=== PATIENT | female | born 1945 | race Caucasian/White ===

== ENCOUNTER → 2016-06-02 | Outpatient (CLI) | payer OTHER ==
[~2016-06-02] MED LIST: ACET-1311 PO; AMLO-110 PO; ASCA500 PO; CALC500C70 PO; DEXT4CHW60 PO; FERR1TAB13 PO; FERR325T51 PO; HYDR25TA4 PO; INSDGI SC; INSDGIPEN SC; INSUINJ4 SQ; IPRASOL4 INH; KETO0.0216 OPB; LEVO100T7 PO; LISI40TA PO; MAGN400T6 PO; METF1TAB53 PO; MISCCAP80 PO; MONT1TAB3 PO; MULT-614 PO; OMEG10007 PO; POLY99.02 OPB; PRIM50TA29 PO; PRLSR20 PO; PROAIR INH; SERT1TAB71 PO; SIMV20TA2 PO; SITA100T3 PO; SYMIN160 INH; TERB250T47 PO; VNTHFA/IN INH; ZLF50 PO
--- NOTE | 2016-06-02 16:40 | MAMMOGRAPHY REPORT ---
BILATERAL DIGITAL SCREENING MAMMOGRAM WITH CAD: 06/02/2016 CLINICAL HISTORY: Routine screening. Patient has no complaints. TECHNIQUE: Bilateral CC and MLO views were obtained. A repeat left CC view was performed for a skin fold. Current study was also evaluated with a Computer Aided Detection (CAD) system. COMPARISON: Comparison is made to exams dated: 05/29/2015 mammogram, 05/28/2014 mammogram, 03/16/2012 mammogram, 03/09/2011 mammogram - [facility], and 12/10/2008. BREAST COMPOSITION: There are scattered areas of fibroglandular density in both breasts. FINDINGS: There are minimal vascular calcifications and scattered stable benign-appearing microcalci fications in the breasts. No new suspicious mass, architectural distortion or cluster of microcalci fications is seen. IMPRESSION: ACR BI-RADS CATEGORY 1: NEGATIVE There is no mammographic evidence of malignancy. A 1 year screening mammogram is recommended. The p atient will receive written notification of the results. Approximately 10% of breast cancers are not detected with mammography. A negative mammographic repor t should not delay biopsy if a clinically suggestive mass is present. Rosy Sotomayor M.D. ay/:06/02/2016 16:33:20 Pharmacognosist: Marion MARTIN(Tani)(Nubia), [facility] letter sent: Normal 1/2 BI-RADS Code: ACR BI-RADS Category 1: Negative
== END | disposition home or self-care (01) ==
LOC: C.MAMM 10:07
PROVIDERS: ATTEND Internal Medicine
DX: Z12.31 Encounter for screening mammogram for malignant neoplasm of breast (principal)

== ENCOUNTER 2016-10-30 19:00 | Inpatient (IN) | payer OTHER ==
[~2016-10-30] VITALS: Ht 147.3 cm; Wt 76.6 kg
[~2016-10-30 19:00] MED LIST changes: -FERR1TAB13 PO; -INSDGIPEN SC; -MISCCAP80 PO; -TERB250T47 PO; -VNTHFA/IN INH; -ZLF50 PO
[2016-10-30] MEDS ORDERED: SODIUM CHLORIDE 0.9% 500ML 500 ML IV STA (19:26)
[2016-10-30] MEDS ORDERED: MISCCAP80 PO (19:42)
[2016-10-30] MEDS ORDERED: TERB250T47 PO (19:42)
[2016-10-30] MEDS ORDERED: FERR1TAB13 PO (19:42)
[2016-10-30] MEDS ORDERED: VNTHFA/IN INH (19:42)
[2016-10-30] MEDS ORDERED: INSDGIPEN SC ×2 (19:42)
[2016-10-30] MEDS ORDERED: KETO0.0216 OPB (19:42)
--- NOTE | 2016-10-30 20:16 | DIAGNOSTIC IMAGING REPORT ---
CHEST ONE VIEW PORTABLE HISTORY: Altered mental status. COMPARISON: Chest 11/05/2015. FINDINGS: No pneumothorax. No pleural effusions. The cardiac silhouette is mildly enlarged. There is mild central pulmonary vascular congestion without overt edema. No focal lung consolidations to suggest pneumonia. IMPRESSION: Progression of the mild cardiomegaly and mild central pulmonary vascular congestion. Electronically signed by: Saul Rojas M.D. 10/30/2016 8:14 PM Dictated Date/Time: 10/30/2016 8:13 PM
[2016-10-30 20:43] LABS: BASO % 0.3 %; BASO ABS # 0.03 K/uL (0-0.2); COMPLETE YES; EOS % 1.1 %; HEMATOCRIT 32.2 % (37-47); IG% 0.4 %; LYMPH % 21.6 %; LYMPH ABS # 2.39 K/uL (1.2-3.4); MEAN CELL VOLUME 94.4 fL (80-100); MEAN CORPUSCULAR HEMOGLOBIN 29.9 pg (25-34); MEAN CORPUSCULAR HGB CONC 31.7 g/dl (32-36); MEAN PLATELET VOLUME 8.8 fL (7.4-10.4); MONO % 7.7 %; NEUT % 68.9 %; PLATELET COUNT 349 K/uL (130-400); RED BLOOD COUNT 3.41 M/uL (4.2-5.4); WHITE BLOOD COUNT 11.04 K/uL (4.8-10.8)
[2016-10-30 21:24] LABS: ALKALINE PHOSPHATASE 101 U/L (45-117); ALT/SGPT 17 U/L (12-78); AST/SGOT 21 U/L (15-37); BLOOD UREA NITROGEN 15 mg/dl (7-18); BUN/CREATININE RATIO 15.8 (10-20); CALCIUM 9.7 mg/dl (8.5-10.1); CARBON DIOXIDE 29 mmol/L (21-32); CHLORIDE 97 mmol/L (98-107); CREATININE 0.96 mg/dl (0.60-1.20); GLUCOSE 73 mg/dl (70-99); POTASSIUM 4.7 mmol/L (3.5-5.1); SODIUM 133 mmol/L (136-145)
[2016-10-30 22:39] LABS: URINE APPEARANCE CLEAR (CLEAR); URINE BILIRUBIN NEG (NEG); URINE COLOR YELLOW; URINE EPITHELIAL CELL AUTO >30 /lpf (0-5); URINE NITRITE NEG (NEG); URINE PH 6.5 (4.5-7.5); URINE SPECIFIC GRAVITY 1.015 (1.000-1.030); UROBILINOGEN NEG (NEG); ZZURINE CULT IF INDIC CATH YES
[2016-10-30 22:40] LABS: MANUAL MICROSCOPIC REQUIRED? NO; REVIEW REQ? YES
[2016-10-31] MEDS ORDERED: MAGNESIUM HYDROXIDE SUSP 30 ML UDC PO PRN (01:00)
[2016-10-31] MEDS ORDERED: ALUMINUM/MAGNESIUM/SIMETH (MAALOX MAX) 30 ML UDC PO PRN (01:00)
[2016-10-31] MEDS ORDERED: POLYETHYLENE (MIRALAX) 17 GM PACK PO PRN (01:00)
[2016-10-31] MEDS ORDERED: ONDANSETRON INJ 2 MG/ML 2 ML VIAL IV PRN (01:00)
[2016-10-31] MEDS ORDERED: DEXTROSE 50% 50 ML SYR IV PRN (01:15)
[2016-10-31] MEDS ORDERED: GLUCOSE 10 TABS/TUBE PO PRN (01:15)
[2016-10-31] MEDS ORDERED: ALBUT/IPRATROP 3MG/0.5MG NEB 3 ML VIAL INH PRN (01:15)
[2016-10-31] MEDS ORDERED: ALBUTEROL HFA 8 GM INHALER INH PRN (01:15)
[2016-10-31] MEDS ORDERED: GLUCAGON FOR INJ 1 MG VIAL SQ PRN (01:15)
[2016-10-31] MEDS ORDERED: GLUCOSE 40% GEL 15 GM TUBE PO PRN (01:15)
--- NOTE | 2016-10-31 01:39 | History and Physical ---
History & Physical Date & Time of Service: Oct 31, 2016 at 01:06 Chief Complaint: Possuti,Newconfusion,Incontinent,Mental,Deathinfam Primary Care Physician: Franki Fernandez M.D. History of Present Illness Source: family, hospital records 71 y/o F Hx HTN, DM, HPL, asthma, anemia. Pt resides in a usp owing to mild MR. Apparently, this past Wed, she learned that a grandson of hers had and became exceedingly upset that she had not attended the . Per her daughter, she had not been in contact with the grandson for several years. Since that time she has become progressively more lethargic, seemingly confused and poorly responsive. She had wandered out of her usp at night as well and her daughter stated that she was found crossing a nearby bridge on foot. The pt herself answers "yes", "no", "I don't know" to all questioning and does not obey most commands. She was reportedly in her normal state of health prior to Wed. She is normally conversive and cooperative. [facility]. Past Medical/Surgical History 1) Asthma 2) Mild mental retardation 3) DM 2 4) HTN 5) HPL 6) Chronic iron-deficient anemia - baseline Hb 10.0 Family History FH: asthma CA, Heart disease Social History Smoking Status: Never Smoker Drug Use: none Marital Status: single Occupational Status: retired Immunizations History of Influenza Vaccine: Yes Influenza Vaccine Date: Dec 20, 2008 History of Tetanus Vaccine?: Yes Tetanus Immunization Date: Mar 13, 1989 History of Pneumococcal: Yes Pneumococcal Date: Dec 20, 2008 History of Hepatitis B Vaccine: Unknown Multi-Drug Resistant Organisms History of MDRO: No Allergies Coded Allergies: No Known Allergies (Verified , 12/10/15) Home Medications Scheduled Amlodipine (Norvasc), 5 MG PO QAM Ascorbic Acid (Vitamin C), 1 TAB PO TID Budesonide/Formoterol Fumarate (Symbicort 160/4.5 Inhaler ), 2 PUFFS INH BID Calcium/Vitamin D (Os-Shahid 500 Plus D), 1 TAB PO BID Ferrous Sulfate (Kp Ferrous Sulfate), 325 MG PO TID Fish Oil (Challenge-3), 1,000 MG PO QAM Hydrochlorothiazide (Hctz), 25 MG PO QAM Insulin Glargine (Lantus Solostar), 35 UNITS SC QAM Insulin Glargine (Lantus Solostar), 18 UNITS SC QPM Ketotifen Fumarate (Ophth) (Zaditor 0.025% Oph), 1 DROP OPB BID Levothyroxine Sodium (Levothyroxine Sodium), 100 MCG PO QAM Lisinopril (Zestril), 40 MG PO QAM Magnesium Oxide (Mag-Ox), 400 MG PO QID Metformin Hcl (Glucophage Ext Rel), 1,000 MG PO BID Montelukast Sodium (Singulair), 10 MG PO QPM Multiple Vitamins W/ Minerals (Centrum Silver Ultra [place]), 1 TAB PO QAM Omeprazole (Prilosec), 20 MG PO QAM Primidone (Mysoline), 50 MG PO TID Probiotic Product (Probiotic), 1 CAP PO QAM Sertraline Hcl (Zoloft), 100 MG PO QAM Simvastatin (Zocor), 20 MG PO QPM Sitagliptin Phosphate (Januvia), 100 MG PO QAM Terbinafine Hcl (Terbinafine Hcl), 250 MG PO DAILY Scheduled PRN Acetaminophen (Tylenol), 1-2 TABS PO Q6H PRN for Pain Albuterol Hfa (Ventolin Hfa), 2 PUFFS INH Q4H PRN for Shortness of Breath Ipratropium-Albuterol (Duoneb), 1 TREATMENT INH Q4H PRN for Shortness of Breath Review of Systems Cannot obtain Physical Exam Vital Signs Date Time Temp Pulse Resp B/P (MAP) Pulse Ox O2 Delivery O2 Flow Rate FiO2 10/31/16 01:00 83 98 10/31/16 00:57 153/72 100 10/31/16 00:45 81 98 10/31/16 00:31 153/72 10/31/16 00:30 80 100 10/31/16 00:15 84 97 10/31/16 00:01 141/62 10/31/16 00:00 80 97 10/30/16 23:45 79 98 10/30/16 23:31 126/52 10/30/16 23:30 74 95 10/30/16 23:24 156/64 10/30/16 22:50 76 16 157/76 98 Room Air 10/30/16 21:03 79 16 158/73 99 Room Air 10/30/16 19:06 37.0 76 18 160/83 98 Room Air General Appearance: + pertinent finding (Poorly responsive elderly female - provides short answers - mostly "no", "I don't know" - no distress) Head: normocephalic, atraumatic Neck: supple, no JVD Respiratory/Chest: chest non-tender, lungs clear, + pertinent finding (Poor effort) Cardiovascular: regular rate, rhythm, no edema, no gallop Abdomen/GI: normal bowel sounds, non tender, soft Back: normal inspection, no CVA tenderness Extremities/Musculoskelatal: normal inspection, no calf tenderness, normal range of motion Neurologic/Psych: + pertinent finding (No overt deficits - does not comply with exam) Skin: normal color, warm/dry Diagnostics Laboratory Results Results Past 24 Hours Test 10/30/16 20:33 10/30/16 22:14 Range/Units White Blood Count 11.04 4.8-10.8 K/uL Red Blood Count 3.41 4.2-5.4 M/uL Hemoglobin 10.2 12.0-16.0 g/dL Hematocrit 32.2 37-47 % Mean Corpuscular Volume 94.4 80-100 fL Mean Corpuscular Hemoglobin 29.9 25-34 pg Mean Corpuscular Hemoglobin Concent 31.7 32-36 g/dl Platelet Count 349 130-400 K/uL Mean Platelet Volume 8.8 7.4-10.4 fL Neutrophils (%) (Auto) 68.9 % Lymphocytes (%) (Auto) 21.6 % Monocytes (%) (Auto) 7.7 % Eosinophils (%) (Auto) 1.1 % Basophils (%) (Auto) 0.3 % Neutrophils # (Auto) 7.61 1.4-6.5 K/uL Lymphocytes # (Auto) 2.39 1.2-3.4 K/uL Monocytes # (Auto) 0.85 0.11-0.59 K/uL Eosinophils # (Auto) 0.12 0-0.5 K/uL Basophils # (Auto) 0.03 0-0.2 K/uL RDW Standard Deviation 44.8 36.4-46.3 fL RDW Coefficient of Variation 13.0 11.5-14.5 % Immature Granulocyte % (Auto) 0.4 % Immature Granulocyte # (Auto) 0.04 0.00-0.02 K/uL Sodium Level 133 136-145 mmol/L Potassium Level 4.7 3.5-5.1 mmol/L Chloride Level 97 98-107 mmol/L Carbon Dioxide Level 29 21-32 mmol/L Anion Gap 7.0 3-11 mmol/L Blood Urea Nitrogen 15 7-18 mg/dl Creatinine 0.96 0.60-1.20 mg/dl Est Creatinine Clear Calc Drug Dose 46.7 ml/min Estimated GFR () 68.5 Estimated GFR (Non- 59.1 BUN/Creatinine Ratio 15.8 10-20 Random Glucose 73 70-99 mg/dl Calcium Level 9.7 8.5-10.1 mg/dl Total Bilirubin 0.1 0.2-1 mg/dl Direct Bilirubin 0-0.2 mg/dl Aspartate Amino Transf (AST/SGOT) 21 15-37 U/L Alanine Aminotransferase (ALT/SGPT) 17 12-78 U/L Alkaline Phosphatase 101 45-117 U/L Troponin I < 0.015 0-0.045 ng/ml Total Protein 7.4 6.4-8.2 gm/dl Albumin 3.3 3.4-5.0 gm/dl Lipase 195 73-393 U/L Chemistry Specimen Hemolysis Urine Color YELLOW Urine Appearance CLEAR CLEAR Urine pH 6.5 4.5-7.5 Urine Specific [place] 1.015 1.000-1.030 Urine Protein NEG NEG Urine Glucose (UA) NEG NEG Urine Ketones NEG NEG Urine Occult Blood NEG NEG Urine Nitrite NEG NEG Urine Bilirubin NEG NEG Urine Urobilinogen NEG NEG Urine Leukocyte Esterase MODERATE NEG Urine WBC (Auto) >30 0-5 /hpf Urine RBC (Auto) 0-4 0-4 /hpf Urine Hyaline Casts (Auto) 1-5 0-5 /lpf Urine Epithelial Cells (Auto) >30 0-5 /lpf Urine Bacteria (Auto) NEG NEG Urine Renal Epithelial Cells 10-20 0-5 /lpf Microbiology Results 10/30/16 Urine Culture, Received Pending Diagnostic Radiology CT head negative - reviewed from transfer documents Impression Assessment and Plan 71 y/o F Hx HTN, DM, HPL, asthma, anemia. Pt resides in a usp owing to mild MR. Apparently, this past Wed, she learned that a grandson of hers had and became exceedingly upset that she had not attended the . Per her daughter, she had not been in contact with the grandson for several years. Since that time she has become progressively more lethargic, seemingly confused and poorly responsive. She had wandered out of her usp at night as well and her daughter stated that she was found crossing a nearby bridge on foot. The pt herself answers "yes", "no", "I don't know" to all questioning and does not obey most commands. She was reportedly in her normal state of health prior to Wed. She is normally conversive and cooperative. 1) The pt may have an acute UTI, but does not have any obvious medical issues that would contribute to her rapidly declining mental state. This may then be a result of depression or acute grief. She was evaluated by the mental health service who did not feel she was suffering from a related condition. We will treat her for her UTI, provide hydration and continue her home meds. It is not clear that this would improve her condition which we currently believe to be a psychiatric issue such as depression with a degree of catatonia. Case management should be consulted if a metabolic or infectious issue is ruled out as a route cause as she may then require transfer to an appropriate facility. TSH is pending. 2) UTI - placed on Rocephin pending cultures. 3) DM - pt has a slightly low glu on admission - placed on a Q6H SS without long -acting insulin. 4) HTN - cont Norvasc - she is clinically dehydrated with a slight low Na - HCTZ held 5) HPL - cont STatin Tx 6) Asthma - cont inhalers and PRN Duonebs 7) Chronic anemia - Hb is aat baseline Full code - fall risk - placed on SCDs only Total time for this admit including review of labs, meds, imaging - discussion with ER attending and pt's daughter at bedside - 35 min Resuscitation Status FULL RESUSCITATION VTE Prophylaxis VTE Risk Assessment Done? Y/N: Yes Risk Level: Moderate Given or contraindicated: SCD's
[2016-10-31 02:32] VITALS: BP 136/68; PULSE 79; TEMP 36.8; O2SAT 93; Ht 147.3 cm; Wt 76.6 kg
[2016-10-31] MEDS: SODIUM CHLORIDE 0.9% 1000ML 1,000 ML IV SCH ×3 (02:53→22:42)
--- NOTE | 2016-10-31 02:53 | EMERGENCY ROOM VISIT NOTE ---
History Report prepared by Christianibduke: Janene Jauregui Under the Supervision of: Dr. Russ Bello D.O. First contact with patient: 19:11 Chief Complaint: ALTERED MENTAL STATUS Stated Complaint: POSSUTI,NEWCONFUSION,INCONTINENT,MENTAL,DEATHINFAM History of Present Illness The patient is a 71 year old female who presents to the Emergency Room with a worsening altered mental status for the past 2 days. She is accompanied by her sister. Her sister reports that the patient found out her grandson this past Wednesday, but she was unable to attend the . Since then, she has been worsening. Earlier today, she went to [facility] and had a CT scan and urine test, but they both came back negative. Her sister states the patient "is not acting like herself" and she "just sits and stares". She currently lives at [facility] in [place] and staff there thought maybe she needed a psychiatric evaluation. The patient denies any recent falls, headache, change in vision, fevers, chest pain, shortness of breath, abdominal pain, nausea, vomiting, diarrhea, pain with urination, and melena but patient is having no tablets in. 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 A total of 10 systems reviewed and were otherwise negative. Past Medical & Surgical Medical Problems: (1) Asthma (2) Catatonia (3) Depression (4) Diabetes mellitus (5) Hypertension (6) Mental retardation (7) UTI (urinary tract infection) Family History FH: asthma Social History Smoking Status: Never Smoker Smokeless Tobacco Use: No Alcohol Use: none Drug Use: none Marital Status: single Housing Status: [facility] Occupation Status: retired Current/Historical Medications Scheduled Amlodipine (Norvasc), 5 MG PO QAM Ascorbic Acid (Vitamin C), 1 TAB PO TID Budesonide/Formoterol Fumarate (Symbicort 160/4.5 Inhaler ), 2 PUFFS INH BID Calcium/Vitamin D (Os-Shahid 500 Plus D), 1 TAB PO BID Ferrous Sulfate (Kp Ferrous Sulfate), 325 MG PO TID Fish Oil ([place]-3), 1,000 MG PO QAM Hydrochlorothiazide (Hctz), 25 MG PO QAM Insulin Glargine (Lantus Solostar), 35 UNITS SC QAM Insulin Glargine (Lantus Solostar), 18 UNITS SC QPM Ketotifen Fumarate (Ophth) (Zaditor 0.025% Oph), 1 DROP OPB BID Levothyroxine Sodium (Levothyroxine Sodium), 100 MCG PO QAM Lisinopril (Zestril), 40 MG PO QAM Magnesium Oxide (Mag-Ox), 400 MG PO QID Metformin Hcl (Glucophage Ext Rel), 1,000 MG PO BID Montelukast Sodium (Singulair), 10 MG PO QPM Multiple Vitamins W/ Minerals (Centrum Silver Ultra [place]), 1 TAB PO QAM Omeprazole (Prilosec), 20 MG PO QAM Primidone (Mysoline), 50 MG PO TID Probiotic Product (Probiotic), 1 CAP PO QAM Sertraline Hcl (Zoloft), 100 MG PO QAM Simvastatin (Zocor), 20 MG PO QPM Sitagliptin Phosphate (Januvia), 100 MG PO QAM Terbinafine Hcl (Terbinafine Hcl), 250 MG PO DAILY Scheduled PRN Acetaminophen (Tylenol), 1-2 TABS PO Q6H PRN for Pain Albuterol Hfa (Ventolin Hfa), 2 PUFFS INH Q4H PRN for Shortness of Breath Ipratropium-Albuterol (Duoneb), 1 TREATMENT INH Q4H PRN for Shortness of Breath Allergies Coded Allergies: No Known Allergies (Verified , 12/10/15) Physical Exam Vital Signs Date Time Temp Pulse Resp B/P (MAP) Pulse Ox O2 Delivery O2 Flow Rate FiO2 10/31/16 00:57 153/72 100 10/31/16 00:45 81 98 10/31/16 00:31 153/72 10/31/16 00:30 80 100 10/31/16 00:15 84 97 10/31/16 00:01 141/62 10/31/16 00:00 80 97 10/30/16 23:45 79 98 10/30/16 23:31 126/52 10/30/16 23:30 74 95 10/30/16 23:24 156/64 10/30/16 22:50 76 16 157/76 98 Room Air 10/30/16 21:03 79 16 158/73 99 Room Air 10/30/16 19:06 37.0 76 18 160/83 98 Room Air Physical Exam GENERAL: Patient is sitting up in bed, disheveled, in no acute distress, non- toxic EYE EXAM: normal conjunctiva, PERRL and EOM's intact OROPHARYNX: no exudate, no erythema, lips, buccal mucosa, and tongue normal and mucous membranes are moist NECK: supple, no nuchal rigidity, no adenopathy, non-tender LUNGS: Clear to auscultation. Normal chest wall mechanics HEART: no murmurs, S1 normal and S2 normal ABDOMEN: abdomen soft, non-tender, normo-active bowel sounds, no masses, no rebound or guarding. BACK: Back is symmetrical on inspection and there is no deformity, no midline tenderness, no CVA tenderness. SKIN: no rashes and no bruising UPPER EXTREMITIES: upper extremities are grossly normal. LOWER EXTREMITIES: No pitting edema. NEURO EXAM: Patient is alert, oriented to person, but not place or time. Answers no to the majority of questions. No drift. Finger to nose is difficult to obtain. Medical Decision & Procedures ER Provider Diagnostic Interpretation: Radiology results as stated below per my review and the radiologist's interpretation: CHEST ONE VIEW PORTABLE HISTORY: Altered mental status. COMPARISON: Chest 11/05/2015. FINDINGS: No pneumothorax. No pleural effusions. The cardiac silhouette is mildly enlarged. There is mild central pulmonary vascular congestion without overt edema. No focal lung consolidations to suggest pneumonia. IMPRESSION: Progression of the mild cardiomegaly and mild central pulmonary vascular congestion. Electronically signed by: Saul Rojas M.D. 10/30/2016 8:[address] HEAD WO CONTRAST, Performed at [facility] on 10/30/2016 Indication: Confusion Technique: CT of the brain was performed without contrast. Automated mA/kV exposure control was utilized and patient examination was performed in strict accordance with principles of ALARA. Comparison: None Findings: There is no acute intracranial hemorrhage, midline shift, mass effect or extra- axial fluid collection. Evans-white differentiation is preserved without CT evidence for acute territorial infarction. Brain volume and ventricular system are within normal limits for age. Mild patchy areas of low-attenuation are seen in the subcortical and deep periventricular white matter suggesting areas of chronic microvascular ischemia. The skull base and calvarium are intact. The visualized paranasal sinuses are unremarkable. The visualized orbits, gloves and mastoid air cells are unremarkable. Impression: Normal CT of the brain. Signed by Juanita Howe MD 10/30/2016 10:20 Laboratory Results 10/30/16 20:33 Red Blood Count 3.41, Mean Corpuscular Volume 94.4, Mean Corpuscular Hemoglobin 29.9, Mean Corpuscular Hemoglobin Concent 31.7, Mean Platelet Volume 8.8, Neutrophils (%) (Auto) 68.9, Lymphocytes (%) (Auto) 21.6, Monocytes (%) (Auto) 7.7, Eosinophils (%) (Auto) 1.1, Basophils (%) (Auto) 0.3, Neutrophils # (Auto) 7.61, Lymphocytes # (Auto) 2.39, Monocytes # (Auto) 0.85, Eosinophils # (Auto) 0.12, Basophils # (Auto) 0.03 10/30/16 20:33 Test 10/30/16 20:33 10/30/16 22:14 White Blood Count 11.04 K/uL (4.8-10.8) Red Blood Count 3.41 M/uL (4.2-5.4) Hemoglobin 10.2 g/dL (12.0-16.0) Hematocrit 32.2 % (37-47) Mean Corpuscular Volume 94.4 fL (80-100) Mean Corpuscular Hemoglobin 29.9 pg (25-34) Mean Corpuscular Hemoglobin Concent 31.7 g/dl (32-36) Platelet Count 349 K/uL (130-400) Mean Platelet Volume 8.8 fL (7.4-10.4) Neutrophils (%) (Auto) 68.9 % Lymphocytes (%) (Auto) 21.6 % Monocytes (%) (Auto) 7.7 % Eosinophils (%) (Auto) 1.1 % Basophils (%) (Auto) 0.3 % Neutrophils # (Auto) 7.61 K/uL (1.4-6.5) Lymphocytes # (Auto) 2.39 K/uL (1.2-3.4) Monocytes # (Auto) 0.85 K/uL (0.11-0.59) Eosinophils # (Auto) 0.12 K/uL (0-0.5) Basophils # (Auto) 0.03 K/uL (0-0.2) RDW Standard Deviation 44.8 fL (36.4-46.3) RDW Coefficient of Variation 13.0 % (11.5-14.5) Immature Granulocyte % (Auto) 0.4 % Immature Granulocyte # (Auto) 0.04 K/uL (0.00-0.02) Anion Gap 7.0 mmol/L (3-11) Est Creatinine Clear Calc Drug Dose 46.7 ml/min Estimated GFR () 68.5 Estimated GFR (Non- 59.1 BUN/Creatinine Ratio 15.8 (10-20) Calcium Level 9.7 mg/dl (8.5-10.1) Total Bilirubin 0.1 mg/dl (0.2-1) Direct Bilirubin mg/dl (0-0.2) Aspartate Amino Transf (AST/SGOT) 21 U/L (15-37) Alanine Aminotransferase (ALT/SGPT) 17 U/L (12-78) Alkaline Phosphatase 101 U/L (45-117) Troponin I < 0.015 ng/ml (0-0.045) Total Protein 7.4 gm/dl (6.4-8.2) Albumin 3.3 gm/dl (3.4-5.0) Lipase 195 U/L (73-393) Chemistry Specimen Hemolysis Urine Color YELLOW Urine Appearance CLEAR (CLEAR) Urine pH 6.5 (4.5-7.5) Urine Specific [place] 1.015 (1.000-1.030) Urine Protein NEG (NEG) Urine Glucose (UA) NEG (NEG) Urine Ketones NEG (NEG) Urine Occult Blood NEG (NEG) Urine Nitrite NEG (NEG) Urine Bilirubin NEG (NEG) Urine Urobilinogen NEG (NEG) Urine Leukocyte Esterase MODERATE (NEG) Urine WBC (Auto) >30 /hpf (0-5) Urine RBC (Auto) 0-4 /hpf (0-4) Urine Hyaline Casts (Auto) 1-5 /lpf (0-5) Urine Epithelial Cells (Auto) >30 /lpf (0-5) Urine Bacteria (Auto) NEG (NEG) Urine Renal Epithelial Cells 10-20 /lpf (0-5) Laboratory results per my review. Medications Administered Medications (Trade) Dose Ordered Sig/Tierney Route Start Time Stop Time Status Last Admin Dose Admin Sodium Chloride 500 ml @ 999 mls/hr Q31M STAT IV 10/30/16 19:26 10/30/16 19:56 DC 10/30/16 21:01 999 MLS/HR ECG Indication: altered mental status Rate (beats per minute): 75 Rhythm: sinus rhythm Findings: Q waves (Inferior), no ectopy ED Course ED COURSE: Vital signs were reviewed and showed the patient is hypertensive. The patients medical record was reviewed The above diagnostic studies were performed and reviewed. ED treatments and interventions as stated above. 5: The patient was evaluated in room C5. A complete history and physical examination was performed. 6: NSS 500 ml @ 999 mls/hr IV. 0: I reviewed the patients CT scan and urinalysis from [facility] earlier today. Both are negative. See diagnostic interpretation for complete details of the CT scan. 5: Upon reevaluation, the patient is still confused. I discussed my findings with the patient and her family understands and agrees with the treatment plan. 2214: I discussed the patients case with Dr. Gan, [facility] Hospitalist. He thinks this is psychiatric and would like psychiatry to evaluate the patient. She will be further evaluated. 2255: Nursing informed me [address] [place] [address], [facility], is aware the patient needs to be evaluated. 0010: I reevaluated the patient. She is talking and resting comfortably. 0020: Nursing informed me the patient was cleared by Psychiatry. Based on the patients age, coexisting illnesses, exam and lab findings the decision to treat as an inpatient was made. The patient remained stable while under my care. The patient will be evaluated for further management. Medical Decision Differential diagnoses includes but is not limited to toxic, metabolic, infectious, traumatic, cardiac, neurologic, hematologic, psychiatric and inflammatory etiologies. Patient is a 71-year-old female presents to the ER for altered mental status. She has not been acting normally since this past Wednesday when a family member . She was seen in an outside hospital had a CT head and a UA which is negative. She has no complaints. She does follow commands. She does not know where she is or who she is with. CBC along with BMP, LFTs, bilirubin and troponin were negative. UA was contaminated. She was evaluated by internal medicine initially and recommended psychiatry. Psychiatry does not believe that there is any acute psychiatric issue. Patient was reevaluated and although she improved and was talking with psychiatry she now does not know where she is or who she is with. Rediscussed case with internal medicine and she'll be observed overnight. Medication Reconcilliation Current Medication List: was personally reviewed by me Blood Pressure Screening Patient's blood pressure: Elevated blood pressure Blood pressure disposition: Elevated BP felt to be situational Consults Time Called: 2209 Consulting Physician: Dr. Gan [facility] Hospitalist Returned Call: [id number] I discussed the patients case with Dr. Gan, [facility] Hospitalist. He thinks this is psychiatric and would like psychiatry to evaluate the patient. She will be further evaluated. Impression Primary Impression: Mood disorder Scribe Attestation The scribe's documentation has been prepared under my direction and personally reviewed by me in its entirety. I confirm that the note above accurately reflects all work, treatment, procedures, and medical decision making performed by me. Departure Information Dispostion Being Evaluated By Hospitalist Referrals Franki Fernandez M.D. (PCP) Patient Instructions My [facility]
[2016-10-31] MEDS: CEFTRIAXONE SOD INJ 1 GM in DEXTROSE 5% ADD-VANTAGE 50ML 50 ML IV SCH (03:08)
[2016-10-31] MEDS ORDERED: INSULIN ASPART 100 UNITS/ML 3 ML PEN SC SCH (06:00)
[2016-10-31] MEDS: LEVOTHYROXINE 100 MCG TAB PO SCH (06:35)
[2016-10-31] MEDS: OMEGA-3 (PURIFIED FISH OIL) 1 GM CAP PO SCH (07:46)
[2016-10-31] MEDS: BUDESONIDE/FORMOTEROL FUMARATE 160/4.5 60 PUFFS/INHALER INH SCH ×2 (07:46→20:41)
[2016-10-31] MEDS: SERTRALINE HCL 50 MG TAB PO SCH (07:46)
[2016-10-31] MEDS: FERROUS SULFATE 325 MG TAB PO SCH ×3 (07:47→16:40)
[2016-10-31] MEDS: PRIMIDONE 50 MG TAB PO SCH ×3 (07:47→20:43)
[2016-10-31] MEDS: MAGNESIUM OXIDE 400 MG TAB PO SCH ×4 (07:47→20:42)
[2016-10-31] MEDS: AMLODIPINE BESYLATE 5 MG TAB PO SCH (07:47)
[2016-10-31] MEDS: LISINOPRIL 40 MG TAB PO SCH (07:47)
[2016-10-31] MEDS: PANTOprazole SOD 40 MG TAB PO SCH (07:47)
[2016-10-31] MEDS ORDERED: NON-FORMULARY MEDICATION (Probiotic Product (Probiotic) 1 CAP) PO SCH (08:00)
[2016-10-31 08:08] VITALS: BP 134/80; PULSE 76; TEMP 36.3; O2SAT 95
[2016-10-31] MEDS ORDERED: NURSING VERBAL MED ORDER ONE (08:15)
[2016-10-31 08:44] LABS: BUN/CREATININE RATIO 15.3 (10-20); CALCIUM 9.5 mg/dl (8.5-10.1); CREATININE 0.72 mg/dl (0.60-1.20); MAGNESIUM 1.6 mg/dl (1.8-2.4); POTASSIUM 4.2 mmol/L (3.5-5.1)
--- NOTE | 2016-10-31 09:02 | Progress Note ---
Subjective Date of Service: Oct 31, 2016. Subjective Pt evaluation today including: conversation w/ patient, physical exam, chart review, lab review, review of studies, review of inpatient medication list open eyes, reply to my questions, reported hungry and thirsty, and also a lot yes or no answer, cooperative , follow up commands, moving arms and legs Problem List Medical Problems: (1) Closed head injury Status: Acute (2) Mood disorder Status: Acute (3) Neck pain Status: Acute Review of Systems Constitutional: No fever, No chills Eyes: No worsening of vision, No eye pain, No redness, No discharge, No diplopia ENT: No hearing loss, No unusual epistaxis, No nasal symptoms, No sore throat, No tinnitus, No dental problems, No trouble swallowing Respiratory: No cough, No sputum, No wheezing, No shortness of breath, No dyspnea on exertion, No dyspnea at rest, No hemoptysis Cardiac: No chest pain, No orthopnea, No PND, No edema, No claudication, No palpitations Abdomen: No pain, No nausea, No vomiting, No diarrhea, No constipation Musculoskeletal: No joint pain, No muscle pain, No swelling, No calf pain Female : No dysuria, No urinary frequency, No hematuria, No incontinence, No abnormal vaginal bleeding, No vaginal discharge Neurologic: No memory loss, No paralysis, No weakness, No numbness/tingling, No vertigo, No balance problems Psychiatric: No depression symptoms, No anhedonism, No anxiety, No insomnia, No substance abuse Heme: No abnormal bleeding/bruising, No clotting problems, No swollen lymph nodes, No night sweats Endo: No fatigue, No excessive thirst, No excessive urination Skin: No rash, No itch, No new/changing skin lesions, No color change, No bleeding Objective Vital Signs Date Time Temp Pulse Resp B/P (MAP) Pulse Ox O2 Delivery O2 Flow Rate FiO2 10/31/16 08:08 36.3 76 18 134/80 (98) 95 Room Air 10/31/16 02:32 36.8 79 14 136/68 93 Room Air 10/31/16 01:50 86 96 10/31/16 01:35 78 95 10/31/16 01:31 174/68 10/31/16 01:20 79 96 10/31/16 01:05 82 96 10/31/16 01:00 83 98 10/31/16 00:57 153/72 100 10/31/16 00:45 81 98 10/31/16 00:31 153/72 10/31/16 00:30 80 100 10/31/16 00:15 84 97 10/31/16 00:01 141/62 10/31/16 00:00 80 97 10/30/16 23:45 79 98 10/30/16 23:31 126/52 10/30/16 23:30 74 95 10/30/16 23:24 156/64 10/30/16 22:50 76 16 157/76 98 Room Air 10/30/16 21:03 79 16 158/73 99 Room Air 10/30/16 19:06 37.0 76 18 160/83 98 Room Air Physical Exam General Appearance: WD/WN, no apparent distress, + pertinent finding (mild flat , but seems ignored and not ) Eyes: normal inspection, PERRL, EOMI, sclerae normal ENT: normal ENT inspection, hearing grossly normal, pharynx normal Neck: supple, no adenopathy, thyroid normal, no JVD, no carotid bruits, trachea midline Respiratory/Chest: chest non-tender, lungs clear, normal breath sounds, no respiratory distress, no accessory muscle use Cardiovascular: regular rate, rhythm, no edema, no gallop, no JVD, no murmur Abdomen: normal bowel sounds, non tender, soft, no organomegaly, no pulsatile mass Extremities: normal range of motion, non-tender, normal inspection, no pedal edema, no calf tenderness, normal capillary refill, pelvis stable Neurologic/Psychiatric: 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 tested, no motor/sensory deficits, alert, normal mood/affect, oriented x 3, + abnormal cerebellar tests Skin: normal color, warm/dry, no rash Lymphatic: no adenopathy Laboratory Results Last 24 Hours Test 10/30/16 20:33 10/30/16 22:14 10/31/16 01:38 10/31/16 04:41 White Blood Count 11.04 K/uL Red Blood Count 3.41 M/uL Hemoglobin 10.2 g/dL Hematocrit 32.2 % Mean Corpuscular Volume 94.4 fL Mean Corpuscular Hemoglobin 29.9 pg Mean Corpuscular Hemoglobin Concent 31.7 g/dl Platelet Count 349 K/uL Mean Platelet Volume 8.8 fL Neutrophils (%) (Auto) 68.9 % Lymphocytes (%) (Auto) 21.6 % Monocytes (%) (Auto) 7.7 % Eosinophils (%) (Auto) 1.1 % Basophils (%) (Auto) 0.3 % Neutrophils # (Auto) 7.61 K/uL Lymphocytes # (Auto) 2.39 K/uL Monocytes # (Auto) 0.85 K/uL Eosinophils # (Auto) 0.12 K/uL Basophils # (Auto) 0.03 K/uL RDW Standard Deviation 44.8 fL RDW Coefficient of Variation 13.0 % Immature Granulocyte % (Auto) 0.4 % Immature Granulocyte # (Auto) 0.04 K/uL Sodium Level 133 mmol/L Potassium Level 4.7 mmol/L Chloride Level 97 mmol/L Carbon Dioxide Level 29 mmol/L Anion Gap 7.0 mmol/L Blood Urea Nitrogen 15 mg/dl Creatinine 0.96 mg/dl Est Creatinine Clear Calc Drug Dose 46.7 ml/min Estimated GFR () 68.5 Estimated GFR (Non- 59.1 BUN/Creatinine Ratio 15.8 Random Glucose 73 mg/dl Calcium Level 9.7 mg/dl Total Bilirubin 0.1 mg/dl Direct Bilirubin mg/dl Aspartate Amino Transf (AST/SGOT) 21 U/L Alanine Aminotransferase (ALT/SGPT) 17 U/L Alkaline Phosphatase 101 U/L Troponin I < 0.015 ng/ml Total Protein 7.4 gm/dl Albumin 3.3 gm/dl Lipase 195 U/L Chemistry Specimen Hemolysis Urine Color YELLOW Urine Appearance CLEAR Urine pH 6.5 Urine Specific [place] 1.015 Urine Protein NEG Urine Glucose (UA) NEG Urine Ketones NEG Urine Occult Blood NEG Urine Nitrite NEG Urine Bilirubin NEG Urine Urobilinogen NEG Urine Leukocyte Esterase MODERATE Urine WBC (Auto) >30 /hpf Urine RBC (Auto) 0-4 /hpf Urine Hyaline Casts (Auto) 1-5 /lpf Urine Epithelial Cells (Auto) >30 /lpf Urine Bacteria (Auto) NEG Urine Renal Epithelial Cells 10-20 /lpf Ammonia 18.0 umol/L Thyroid Stimulating Hormone (TSH) 1.320 uIu/ml Bedside Glucose 63 mg/dl Test 10/31/16 05:12 10/31/16 07:32 10/31/16 07:47 10/31/16 07:57 Bedside Glucose 98 mg/dl 89 mg/dl 86 mg/dl Assessment and Plan 71 y/o F Hx HTN, DM, HPL, asthma, anemia admitted possible because of acute grief and depression on 10/31/2016 per reprot, pt resides in a [facility] owing to mild MR. This past Wed, she learned that a grandson of hers had and became exceedingly upset that she had not attended the . she had not been in contact with the grandson for several years. Since that time she has become progressively more lethargic, seemingly confused and poorly responsive. today, seem a little better, reported hungry and thirsty, continue ivf, and supportive care, more encouragement, possible acute UTI,cont TSH is pending. DM - pt has a slightly low glu on admission, cont on a Q6H SS without long- acting insulin. HTN - cont Norvasc - she is clinically dehydrated with a slight low Na - HCTZ held HPL - cont STatin Tx Asthma - cont cont inhalers and PRN Duonebs Chronic anemia - Hb is aat baseline Full code - fall risk - placed on SCDs only talk to RN Continued [facility] stay due to: multiple IV medications needed Discharge planning: home
[2016-10-31] MEDS: INSULIN ASPART 100 UNITS/ML 3 ML PEN SC SCH ×3 (11:35→20:43)
[2016-10-31 15:05] VITALS: BP 135/72; PULSE 78; TEMP 37.2; O2SAT 92
[2016-10-31] MEDS: SIMVASTATIN 20 MG TAB PO SCH (20:42)
[2016-10-31] MEDS: MONTELUKAST SOD 10 MG TAB PO SCH (20:43)
[2016-11-01] VITALS: BP 160/79; PULSE 81; TEMP 36.9; O2SAT 95
[2016-11-01] MEDS: CEFTRIAXONE SOD INJ 1 GM in DEXTROSE 5% ADD-VANTAGE 50ML 50 ML IV SCH (03:31)
[2016-11-01] MEDS: LEVOTHYROXINE 100 MCG TAB PO SCH (06:27)
[2016-11-01 07:33] VITALS: BP 159/84; PULSE 85; TEMP 36.6; O2SAT 95
[2016-11-01] MEDS: INSULIN ASPART 100 UNITS/ML 3 ML PEN SC SCH ×4 (08:34→20:42)
[2016-11-01] MEDS: BUDESONIDE/FORMOTEROL FUMARATE 160/4.5 60 PUFFS/INHALER INH SCH ×2 (08:35→20:31)
[2016-11-01] MEDS: PRIMIDONE 50 MG TAB PO SCH ×3 (08:37→20:33)
[2016-11-01] MEDS: FERROUS SULFATE 325 MG TAB PO SCH ×3 (08:37→17:33)
[2016-11-01] MEDS: OMEGA-3 (PURIFIED FISH OIL) 1 GM CAP PO SCH (08:38)
[2016-11-01] MEDS: MAGNESIUM OXIDE 400 MG TAB PO SCH ×4 (08:38→20:32)
[2016-11-01] MEDS: LISINOPRIL 40 MG TAB PO SCH (08:38)
[2016-11-01] MEDS: SERTRALINE HCL 50 MG TAB PO SCH (08:38)
[2016-11-01] MEDS: AMLODIPINE BESYLATE 5 MG TAB PO SCH (08:39)
[2016-11-01] MEDS: SODIUM CHLORIDE 0.9% 1000ML 1,000 ML IV SCH (08:42)
[2016-11-01] MEDS: PANTOprazole SOD 40 MG TAB PO SCH (09:02)
[2016-11-01 11:50] VITALS: BP 154/82; PULSE 81; O2SAT 95
[2016-11-01] MEDS: ACETAMINOPHEN 325 MG TAB PO PRN (14:31)
[2016-11-01 15:59] VITALS: BP 154/80; PULSE 85; TEMP 36.5; O2SAT 94
--- NOTE | 2016-11-01 16:34 | Progress Note ---
Subjective Date of Service: Nov 01, 2016. Subjective Pt evaluation today including: conversation w/ patient, physical exam, chart review, lab review, review of studies, conversation w/ sap solution manager consultant, review of inpatient medication list Has been doing better, conversational talk and getting some feeding, no complaining Problem List Medical Problems: (1) Closed head injury Status: Acute (2) Mood disorder Status: Acute (3) Neck pain Status: Acute Review of Systems Constitutional: + fatigue, No fever, No chills, No sweats, No weight loss, No weakness, No problem reported Eyes: No worsening of vision, No eye pain, No redness, No discharge, No diplopia ENT: No hearing loss, No unusual epistaxis, No nasal symptoms, No sore throat, No tinnitus, No dental problems, No trouble swallowing Respiratory: No cough, No sputum, No wheezing, No shortness of breath, No dyspnea on exertion, No dyspnea at rest, No hemoptysis Cardiac: No chest pain, No orthopnea, No PND, No edema, No claudication, No palpitations Abdomen: No pain, No nausea, No vomiting, No diarrhea, No constipation Musculoskeletal: No joint pain, No muscle pain, No swelling, No calf pain Female : No dysuria, No urinary frequency, No hematuria, No incontinence, No abnormal vaginal bleeding, No vaginal discharge Neurologic: No memory loss, No paralysis, No weakness, No numbness/tingling, No vertigo, No balance problems Psychiatric: No depression symptoms, No anhedonism, No anxiety, No insomnia, No substance abuse Heme: No abnormal bleeding/bruising, No clotting problems, No swollen lymph nodes, No night sweats Endo: No fatigue, No excessive thirst, No excessive urination Skin: No rash, No itch, No new/changing skin lesions, No color change, No bleeding Objective Vital Signs Date Time Temp Pulse Resp B/P (MAP) Pulse Ox O2 Delivery O2 Flow Rate FiO2 11/01/16 15:59 36.5 85 18 154/80 (104) 94 Room Air 11/01/16 11:50 81 95 11/01/16 08:00 Room Air 11/01/16 07:33 36.6 85 20 159/84 (109) 95 Room Air 11/01/16 00:00 36.9 81 20 160/79 (106) 95 Room Air 10/31/16 23:59 Room Air 10/31/16 20:00 Room Air Physical Exam General Appearance: WD/WN, no apparent distress, + pertinent finding (more interactive with me, conversational, no obvious distress , depress) Eyes: normal inspection, PERRL, EOMI, sclerae normal ENT: normal ENT inspection, hearing grossly normal, pharynx normal Neck: supple, no adenopathy, thyroid normal, no JVD, no carotid bruits, trachea midline Respiratory/Chest: chest non-tender, lungs clear, normal breath sounds, no respiratory distress, no accessory muscle use Cardiovascular: regular rate, rhythm, no edema, no gallop, no JVD, no murmur Abdomen: normal bowel sounds, non tender, soft, no organomegaly, no pulsatile mass Extremities: normal range of motion, non-tender, normal inspection, no pedal edema, no calf tenderness, normal capillary refill, pelvis stable Neurologic/Psychiatric: 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 This past Wed, she learned that a grandson of hers had and became exceedingly upset that she had not attended the . she had not been in contact with the grandson for several years. Since that time she has become progressively more lethargic, seemingly confused and poorly responsive. acute grief and depression; stable improving today is much better, eating and drinking, or discontinue ivf, and continue supportive care, more encouragement, possible acute UTI with alpha strep positive, has been on Rocephin, changed to oral Augmentin by mouth, can continue for total 7 days TSH is normal DM - pt has a slightly low glu on admission, cont on a Q6H SS without long- acting insulin. HTN - cont Norvasc - she is clinically dehydrated with a slight low Na - HCTZ held Full code - fall risk - placed on SCDs only talk to igniter assembler plan depends on inpatient progress: per therapist,, if unable to meet treatment goals, then ECF for rehab may be of benefit. I called to list contact, sister, Marleny [phone], updated her pt's condition.s and discharge plan , patient from personal care facility case, Will discharged when more stable in day 1 or 2, [facility] or rehabilitation if needed Continued [facility] stay due to: home environment unsafe for pt Discharge planning: home
[2016-11-01 17:07] LABS: PROTHROMBIN TIME (PATIENT) 10.7 SECONDS (9.0-12.0)
[2016-11-01] MEDS: AMOXICILLIN/CLAVULANATE TAB 875 MG TAB PO SCH (17:32)
[2016-11-01] MEDS: MONTELUKAST SOD 10 MG TAB PO SCH (20:32)
[2016-11-01] MEDS: SIMVASTATIN 20 MG TAB PO SCH (20:33)
[2016-11-01] MEDS: HEPARIN SOD 5000 UNIT/0.5 ML CARP SQ SCH (20:42)
[2016-11-02] VITALS: BP 173/75; PULSE 87; TEMP 36.7; O2SAT 95
[2016-11-02 00:29] VITALS: BP 151/81; PULSE 87
[2016-11-02] MEDS: LEVOTHYROXINE 100 MCG TAB PO SCH (06:19)
[2016-11-02 07:54] VITALS: BP 185/74; PULSE 95; TEMP 36.6; O2SAT 95
[2016-11-02] MEDS: BUDESONIDE/FORMOTEROL FUMARATE 160/4.5 60 PUFFS/INHALER INH SCH ×2 (07:54→19:15)
[2016-11-02] MEDS: PRIMIDONE 50 MG TAB PO SCH ×3 (07:54→19:38)
[2016-11-02] MEDS: OMEGA-3 (PURIFIED FISH OIL) 1 GM CAP PO SCH (07:54)
[2016-11-02] MEDS: SERTRALINE HCL 50 MG TAB PO SCH (07:54)
[2016-11-02] MEDS: MAGNESIUM OXIDE 400 MG TAB PO SCH ×4 (07:54→19:14)
[2016-11-02] MEDS: FERROUS SULFATE 325 MG TAB PO SCH ×3 (07:54→17:32)
[2016-11-02] MEDS: AMLODIPINE BESYLATE 5 MG TAB PO SCH (07:55)
[2016-11-02] MEDS: AMOXICILLIN/CLAVULANATE TAB 875 MG TAB PO SCH (07:55)
[2016-11-02] MEDS: LISINOPRIL 40 MG TAB PO SCH (07:55)
[2016-11-02] MEDS: INSULIN ASPART 100 UNITS/ML 3 ML PEN SC SCH ×4 (08:08→19:57)
[2016-11-02] MEDS: HEPARIN SOD 5000 UNIT/0.5 ML CARP SQ SCH ×2 (08:09→19:46)
[2016-11-02 08:12] LABS: BUN/CREATININE RATIO 13.7 (10-20); CALCIUM 9.5 mg/dl (8.5-10.1); CREATININE 0.67 mg/dl (0.60-1.20); MAGNESIUM 1.5 mg/dl (1.8-2.4)
[2016-11-02] MEDS: PANTOprazole SOD 40 MG TAB PO SCH (08:28)
[2016-11-02] MEDS: ACETAMINOPHEN 325 MG TAB PO PRN ×2 (08:29→13:00)
[2016-11-02 09:20] VITALS: BP 152/82; PULSE 80
[2016-11-02 12:00] VITALS: O2SAT 95
[2016-11-02 15:04] VITALS: BP 179/60; PULSE 92; TEMP 36.8; O2SAT 94
--- NOTE | 2016-11-02 16:02 | Progress Note ---
Subjective Date of Service: Nov 02, 2016. Subjective Pt evaluation today including: conversation w/ patient, physical exam, chart review, lab review, review of studies, review of inpatient medication list Just answer "no" Does not feed herself No distress noted Problem List Medical Problems: (1) Closed head injury Status: Acute (2) Mood disorder Status: Acute (3) Neck pain Status: Acute Review of Systems Difficult to evaluate as pt just stares and repeats "no" Objective Vital Signs Date Time Temp Pulse Resp B/P (MAP) Pulse Ox O2 Delivery O2 Flow Rate FiO2 11/02/16 15:04 36.8 92 20 179/60 (99) 94 Room Air 11/02/16 12:00 95 Room Air 11/02/16 09:20 80 152/82 (105) 11/02/16 08:00 Room Air 11/02/16 07:54 36.6 95 22 185/74 (111) 95 Room Air 11/02/16 00:29 87 151/81 (104) 11/02/16 00:00 36.7 87 22 173/75 (107) 95 Room Air 11/01/16 23:59 Room Air 11/01/16 20:00 Room Air 11/01/16 17:30 Room Air Physical Exam General Appearance: WD/WN, no apparent distress Neck: supple, no adenopathy Respiratory/Chest: chest non-tender, lungs clear, normal breath sounds, no respiratory distress Cardiovascular: regular rate, rhythm, no edema, no gallop, no JVD Abdomen: normal bowel sounds, non tender, soft, no organomegaly Neurologic/Psychiatric: no motor/sensory deficits, alert, + depressed affect, + disoriented Laboratory Results Last 24 Hours Test 11/01/16 16:41 11/01/16 16:50 11/01/16 20:04 11/02/16 00:46 Bedside Glucose 143 mg/dl 174 mg/dl 142 mg/dl Prothrombin Time 10.7 SECONDS Prothromb Time International Ratio 1.0 Test 11/02/16 07:17 11/02/16 07:43 11/02/16 11:38 Sodium Level 135 mmol/L Potassium Level 4.0 mmol/L Chloride Level 101 mmol/L Carbon Dioxide Level 27 mmol/L Anion Gap 7.0 mmol/L Blood Urea Nitrogen 9 mg/dl Creatinine 0.67 mg/dl Est Creatinine Clear Calc Drug Dose 66.1 ml/min Estimated GFR () 101.8 Estimated GFR (Non- 87.8 BUN/Creatinine Ratio 13.7 Random Glucose 157 mg/dl Calcium Level 9.5 mg/dl Magnesium Level 1.5 mg/dl Bedside Glucose 167 mg/dl 153 mg/dl Assessment and Plan 71 y/o F Hx HTN, DM, HPL, asthma, anemia admitted possible because of acute grief and depression on 10/31/2016 per report, pt resides in a longterm owing to mild MR. This past Wed, she learned that a grandson of hers had and became exceedingly upset that she had not attended the . she had not been in contact with the grandson for several years. Since that time she has become progressively more lethargic, seemingly confused and poorly responsive. acute grief and depression; eating and drinking, continue supportive care, more encouragement if worsening will consult psych No acute UTI with alpha strep positive, DC antibx DM - pt has a slightly low glu on admission, cont on a Q6H SS without long- acting insulin. HTN - cont Norvasc - she is clinically dehydrated with a slight low Na - HCTZ held Full code - fall risk - placed on SCDs only Continued [facility] stay due to: home environment unsafe for pt Discharge planning: home
[2016-11-02] MEDS: SIMVASTATIN 20 MG TAB PO SCH (19:14)
[2016-11-02] MEDS: MONTELUKAST SOD 10 MG TAB PO SCH (19:14)
[2016-11-02] MEDS ORDERED: MAGNESIUM OXIDE 400 MG TAB PO SCH (20:00)
[2016-11-03 00:09] VITALS: BP 156/71; PULSE 81; TEMP 36.6; O2SAT 93
[2016-11-03] MEDS: LEVOTHYROXINE 100 MCG TAB PO SCH (06:05)
[2016-11-03 07:19] VITALS: BP 151/81; PULSE 87; TEMP 36.6; O2SAT 98
[2016-11-03 07:31] VITALS: BP 156/62; PULSE 78
[2016-11-03] MEDS: INSULIN ASPART 100 UNITS/ML 3 ML PEN SC SCH ×4 (08:16→20:38)
[2016-11-03] MEDS: FERROUS SULFATE 325 MG TAB PO SCH ×3 (08:19→17:38)
[2016-11-03] MEDS: MAGNESIUM OXIDE 400 MG TAB PO SCH ×4 (08:19→20:35)
[2016-11-03] MEDS: SERTRALINE HCL 50 MG TAB PO SCH (08:19)
[2016-11-03] MEDS: OMEGA-3 (PURIFIED FISH OIL) 1 GM CAP PO SCH (08:19)
[2016-11-03] MEDS: AMLODIPINE BESYLATE 5 MG TAB PO SCH (08:19)
[2016-11-03] MEDS: LISINOPRIL 40 MG TAB PO SCH (08:20)
[2016-11-03] MEDS: PRIMIDONE 50 MG TAB PO SCH ×3 (08:20→20:36)
[2016-11-03] MEDS: BUDESONIDE/FORMOTEROL FUMARATE 160/4.5 60 PUFFS/INHALER INH SCH ×2 (08:21→20:36)
[2016-11-03] MEDS: PANTOprazole SOD 40 MG TAB PO SCH (08:21)
[2016-11-03] MEDS: HEPARIN SOD 5000 UNIT/0.5 ML CARP SQ SCH ×2 (08:52→20:38)
[2016-11-03 11:32] VITALS: BP 179/88; PULSE 93; O2SAT 94
[2016-11-03 13:33] LABS: BASO % 0.3 %; BASO ABS # 0.04 K/uL (0-0.2); COMPLETE YES; EOS % 0.9 %; HEMATOCRIT 29.3 % (37-47); IG% 0.7 %; LYMPH % 18.9 %; LYMPH ABS # 2.22 K/uL (1.2-3.4); MEAN CELL VOLUME 92.4 fL (80-100); MEAN CORPUSCULAR HEMOGLOBIN 31.2 pg (25-34); MEAN CORPUSCULAR HGB CONC 33.8 g/dl (32-36); MEAN PLATELET VOLUME 8.8 fL (7.4-10.4); MONO % 5.7 %; NEUT % 73.5 %; PLATELET COUNT 350 K/uL (130-400); RED BLOOD COUNT 3.17 M/uL (4.2-5.4); WHITE BLOOD COUNT 11.77 K/uL (4.8-10.8)
--- NOTE | 2016-11-03 13:33 | Progress Note ---
Subjective Date of Service: Nov 03, 2016. Subjective Pt evaluation today including: conversation w/ patient, physical exam, chart review, lab review, review of studies, review of inpatient medication list Resting comfortably in bed No acute events overnight More conversation noticed today No distress noted Problem List Medical Problems: (1) Closed head injury Status: Acute (2) Mood disorder Status: Acute (3) Neck pain Status: Acute Review of Systems Constitutional: No fever, No chills, No sweats, No weakness Eyes: No worsening of vision, No eye pain, No redness, No discharge Respiratory: No cough, No sputum, No wheezing, No shortness of breath Cardiac: No chest pain, No orthopnea, No PND, No edema Abdomen: No pain, No nausea, No vomiting, No diarrhea, No constipation Musculoskeletal: No joint pain, No muscle pain, No swelling, No calf pain Female : No dysuria, No urinary frequency, No hematuria, No incontinence Neurologic: No memory loss, No paralysis, No weakness, No numbness/tingling Psychiatric: No depression symptoms, No anhedonism, No anxiety, No insomnia Endo: No fatigue, No excessive thirst Skin: No rash, No itch Objective Vital Signs Date Time Temp Pulse Resp B/P (MAP) Pulse Ox O2 Delivery O2 Flow Rate FiO2 11/03/16 07:55 Room Air 11/03/16 07:31 78 156/62 (93) 11/03/16 07:19 36.6 87 18 151/81 (104) 98 Room Air 11/03/16 00:09 36.6 81 16 156/71 (99) 93 Room Air 11/03/16 00:00 Room Air 11/02/16 20:00 Room Air 11/02/16 15:04 36.8 92 20 179/60 (99) 94 Room Air Physical Exam General Appearance: WD/WN, no apparent distress Eyes: normal inspection, PERRL, EOMI, sclerae normal Neck: supple, no adenopathy, thyroid normal, no JVD Respiratory/Chest: chest non-tender, lungs clear, normal breath sounds, no respiratory distress Cardiovascular: regular rate, rhythm, no edema, no gallop, no JVD Abdomen: normal bowel sounds, non tender, soft, no organomegaly Extremities: normal range of motion, non-tender, normal inspection, no pedal edema Neurologic/Psychiatric: no motor/sensory deficits, alert, normal mood/affect, oriented x 3 Laboratory Results Last 24 Hours Test 11/02/16 15:59 11/02/16 19:52 11/03/16 06:42 11/03/16 08:05 Bedside Glucose 132 mg/dl 148 mg/dl 154 mg/dl Magnesium Level 1.8 mg/dl Test 11/03/16 12:03 11/03/16 12:57 Bedside Glucose 151 mg/dl Assessment and Plan 71 y/o F Hx HTN, DM, HPL, asthma, anemia admitted possible because of acute grief and depression on 10/31/2016 per report, pt resides in a long term owing to mild MR. This past Wed, she learned that a grandson of hers had and became exceedingly upset that she had not attended the . she had not been in contact with the grandson for several years. Since that time she has become progressively more lethargic, seemingly confused and poorly responsive. acute grief and depression; improved more conversive this AM eating and drinking, continue supportive care, more encouragement will need updated PT,OT evals if worsening will consult psych No acute UTI with alpha strep positive, DC antibx DM - pt has a slightly low glu on admission, cont on a Q6H SS without long- acting insulin. HTN - cont Norvasc - she is clinically dehydrated with a slight low Na - HCTZ held Full code - fall risk - placed on SCDs only Continued [facility] stay due to: home environment unsafe for pt Discharge planning: home
[2016-11-03 14:02] LABS: BUN/CREATININE RATIO 16.8 (10-20); CALCIUM 9.8 mg/dl (8.5-10.1); CREATININE 0.93 mg/dl (0.60-1.20); MAGNESIUM 1.7 mg/dl (1.8-2.4); POTASSIUM 4.1 mmol/L (3.5-5.1)
--- NOTE | 2016-11-03 16:00 | DIAGNOSTIC IMAGING REPORT ---
CT SCAN OF THE BRAIN WITHOUT IV CONTRAST CLINICAL HISTORY: Change in mental status. COMPARISON STUDY: CT of the brain dated 05/30/2015. TECHNIQUE: Unenhanced axial CT scan of the brain is performed from the vertex to the skull base. CT DOSE: 537.48 mGy.cm FINDINGS: Brain parenchyma: There are age-related involutional changes noting mild subcortical and periventricular microangiopathic change. There is no hemorrhage, mass effect, or evidence of acute territorial ischemia by CT criteria. Evans-white matter is preserved. No extra-axial fluid collection is seen. Ventricles, sulci, cisterns: Prominent secondary to involutional change. Intracranial vasculature: There is atherosclerotic calcification of the cavernous carotid and vertebral arteries. Calvarium: Unremarkable. Sinuses and mastoids: Mild mucosal thickening is seen in the sphenoid sinuses. The remaining visualized paranasal sinuses are clear. The mastoid air cells are well pneumatized. Orbits: The bony orbits are grossly intact. There are bilateral ocular lens implants. IMPRESSION: There is no hemorrhage, mass effect, or evidence of acute territorial ischemia by CT criteria. Electronically signed by: Magdiel Anthony M.D. 11/03/2016 3:28 PM Dictated Date/Time: 11/03/2016 3:26 PM
[2016-11-03 16:03] VITALS: BP 169/79; PULSE 95; TEMP 36.8; O2SAT 93
[2016-11-03] MEDS: MONTELUKAST SOD 10 MG TAB PO SCH (20:35)
[2016-11-03] MEDS: SIMVASTATIN 20 MG TAB PO SCH (20:36)
[2016-11-03 23:27] VITALS: BP 185/84; PULSE 99; TEMP 37.3; O2SAT 91
[2016-11-04] MEDS: LEVOTHYROXINE 100 MCG TAB PO SCH (06:45)
[2016-11-04 07:30] VITALS: BP 138/74; PULSE 82; TEMP 37; O2SAT 93
[2016-11-04 07:31] LABS: HEMATOCRIT 29.3 % (37-47); MEAN CELL VOLUME 93.6 fL (80-100); MEAN CORPUSCULAR HEMOGLOBIN 31.3 pg (25-34); MEAN CORPUSCULAR HGB CONC 33.4 g/dl (32-36); MEAN PLATELET VOLUME 8.8 fL (7.4-10.4); PLATELET COUNT 324 K/uL (130-400); RED BLOOD COUNT 3.13 M/uL (4.2-5.4); WHITE BLOOD COUNT 12.02 K/uL (4.8-10.8)
[2016-11-04] MEDS: PRIMIDONE 50 MG TAB PO SCH ×3 (09:48→19:56)
[2016-11-04] MEDS: BUDESONIDE/FORMOTEROL FUMARATE 160/4.5 60 PUFFS/INHALER INH SCH ×2 (09:48→19:55)
[2016-11-04] MEDS: MAGNESIUM OXIDE 400 MG TAB PO SCH ×4 (09:48→19:56)
[2016-11-04] MEDS: FERROUS SULFATE 325 MG TAB PO SCH ×3 (09:48→17:00)
[2016-11-04] MEDS: OMEGA-3 (PURIFIED FISH OIL) 1 GM CAP PO SCH (09:49)
[2016-11-04] MEDS: SERTRALINE HCL 50 MG TAB PO SCH (09:50)
[2016-11-04] MEDS: PANTOprazole SOD 40 MG TAB PO SCH (09:50)
[2016-11-04] MEDS: HEPARIN SOD 5000 UNIT/0.5 ML CARP SQ SCH ×2 (09:50→20:20)
[2016-11-04] MEDS: LISINOPRIL 40 MG TAB PO SCH (09:50)
[2016-11-04] MEDS: INSULIN ASPART 100 UNITS/ML 3 ML PEN SC SCH ×4 (09:51→20:20)
[2016-11-04] MEDS: AMLODIPINE BESYLATE 5 MG TAB PO SCH (09:51)
[2016-11-04 11:18] LABS: BUN/CREATININE RATIO 19.5 (10-20); CALCIUM 9.9 mg/dl (8.5-10.1); CREATININE 1.1 mg/dl (0.60-1.20)
[2016-11-04 11:21] LABS: ALB/GLOB RATIO 0.8 (0.9-2)
[2016-11-04] MEDS ORDERED: LORAZEPAM 1 MG TAB PO ONE (12:40)
--- NOTE | 2016-11-04 12:48 | Psychiatric Consultation ---
Consultation Date of Consultation Nov 04, 2016. Identifying Data Meri Valverde is a 71-year-old, resident of [facility] in [place], who was brought to the emergency room due to altered mental status. We are consulted to evaluate depression and possible catatonia. Information is gathered from the electronic medical record, the patient and the staff at [facility]. Chief Complaint None stated History of Present Illness The patient is a 71-year-old woman with past medical history significant for asthma, type 2 diabetes, hypertension and dyslipidemia. She resides at [facility] and has done so for some time. I spoke with a caregiver, Robert, from [facility] who says at baseline she is happy, likes to color, speaks in full sentences and is able to care for herself. The day before sending her to the hospital, she took off down the road and when the staff when after her, she claimed not know the staff's names and she was disoriented as to time place and year. Robert indicates that she did not appear to be hallucinating. She denies that she has ever seen the patient has a similar episode. Apparently Meri experienced a significant stress recently. Her sister called the week prior to hospitalization to tell her that her grandson had 2 weeks previous. Robert describes the next morning the patient was crying a lot feeling depressed and wanted to have gone to the . The patient is on Zoloft but the staff were unable to tell me how long she had been on that but it is prescribed by her PCP, Dr. Fernandez. When asked about any diagnoses of mental retardation or intellectual disabilities, they were unable to answer that. At the time I see the patient she is lying in her bed on her left hand side with her eyes closed. She arouses to verbal but blinks and looks around as if she is disoriented. She will initially not answer questions, I assume she does not hear me and so I talk louder. She will answer some questions yes or no and will answer a few questions with a sentence. She denies that she is depressed, does not want to talk about her grandson, but cannot tell me what his name is. She says twice "I'm all right" but will not expand on this. After I introduced myself, she asks again who I am. She cannot tell me anything about her medications. She is unable to answer any open-ended questions regarding orientation but when I ask her if she is in the hospital she adamantly replies "no". She will not answer questions regarding day date or year. She frequently responded to my questions by closing her eyes as if asleep. She denied that she was hearing voices or seeing things. Past Psychiatric History Current OP Treatment: no current treatment Access to a Gun: No Past Medical/Surgical History (1) Asthma (2) Diabetes mellitus (3) Hypertension Allergies Allergies: Coded Allergies: No Known Allergies (Verified , 12/10/15) Home Medications Scheduled Amlodipine (Norvasc), 5 MG PO QAM Ascorbic Acid (Vitamin C), 1 TAB PO TID Budesonide/Formoterol Fumarate (Symbicort 160/4.5 Inhaler ), 2 PUFFS INH BID Calcium/Vitamin D (Os-Shahid 500 Plus D), 1 TAB PO BID Ferrous Sulfate (Kp Ferrous Sulfate), 325 MG PO TID Fish Oil (Charlotte-3), 1,000 MG PO QAM Hydrochlorothiazide (Hctz), 25 MG PO QAM Insulin Glargine (Lantus Solostar), 35 UNITS SC QAM Insulin Glargine (Lantus Solostar), 18 UNITS SC QPM Ketotifen Fumarate (Ophth) (Zaditor 0.025% Oph), 1 DROP OPB BID Levothyroxine Sodium (Levothyroxine Sodium), 100 MCG PO QAM Lisinopril (Zestril), 40 MG PO QAM Magnesium Oxide (Mag-Ox), 400 MG PO QID Metformin Hcl (Glucophage Ext Rel), 1,000 MG PO BID Montelukast Sodium (Singulair), 10 MG PO QPM Multiple Vitamins W/ Minerals (Centrum Silver Ultra Wome), 1 TAB PO QAM Omeprazole (Prilosec), 20 MG PO QAM Primidone (Mysoline), 50 MG PO TID Probiotic Product (Probiotic), 1 CAP PO QAM Sertraline Hcl (Zoloft), 100 MG PO QAM Simvastatin (Zocor), 20 MG PO QPM Sitagliptin Phosphate (Januvia), 100 MG PO QAM Terbinafine Hcl (Terbinafine Hcl), 250 MG PO DAILY Scheduled PRN Acetaminophen (Tylenol), 1-2 TABS PO Q6H PRN for Pain Albuterol Hfa (Ventolin Hfa), 2 PUFFS INH Q4H PRN for Shortness of Breath Ipratropium-Albuterol (Duoneb), 1 TREATMENT INH Q4H PRN for Shortness of Breath Family History FH: asthma Alcohol Use Alcohol Use In Past 12 Months: No (lives in a [facility] [place]) Smoking Use Smoking Status: Never Smoker Personal History Lives in: [place] at [facility] [place] [facility] [place] [facility] Childhood: Unknown Work History: Unknown Psychological Trauma History: Significant Loss Review of Systems Unable to obtain review of systems due to patient's poor participation Examination Physical Examination As per Dr. Buck Vital Signs Vital Signs Past 12 Hours Date Time Temp Pulse Resp B/P (MAP) Pulse Ox O2 Delivery O2 Flow Rate FiO2 11/04/16 08:45 Room Air 11/04/16 07:30 37.0 82 16 138/74 (95) 93 Room Air Laboratory Results Last 24 Hours Test 11/03/16 12:57 11/03/16 14:38 11/03/16 16:39 11/03/16 20:13 White Blood Count 11.77 K/uL Red Blood Count 3.17 M/uL Hemoglobin 9.9 g/dL Hematocrit 29.3 % Mean Corpuscular Volume 92.4 fL Mean Corpuscular Hemoglobin 31.2 pg Mean Corpuscular Hemoglobin Concent 33.8 g/dl Platelet Count 350 K/uL Mean Platelet Volume 8.8 fL Neutrophils (%) (Auto) 73.5 % Lymphocytes (%) (Auto) 18.9 % Monocytes (%) (Auto) 5.7 % Eosinophils (%) (Auto) 0.9 % Basophils (%) (Auto) 0.3 % Neutrophils # (Auto) 8.65 K/uL Lymphocytes # (Auto) 2.22 K/uL Monocytes # (Auto) 0.67 K/uL Eosinophils # (Auto) 0.11 K/uL Basophils # (Auto) 0.04 K/uL RDW Standard Deviation 43.9 fL RDW Coefficient of Variation 12.9 % Immature Granulocyte % (Auto) 0.7 % Immature Granulocyte # (Auto) 0.08 K/uL Sodium Level 133 mmol/L Potassium Level 4.1 mmol/L Chloride Level 99 mmol/L Carbon Dioxide Level 26 mmol/L Anion Gap 8.0 mmol/L Blood Urea Nitrogen 16 mg/dl Creatinine 0.93 mg/dl Est Creatinine Clear Calc Drug Dose 47.6 ml/min Estimated GFR () 71.2 Estimated GFR (Non- 61.4 BUN/Creatinine Ratio 16.8 Random Glucose 239 mg/dl Calcium Level 9.8 mg/dl Magnesium Level 1.7 mg/dl Vitamin B12 Level 877 pg/mL Bedside Glucose 187 mg/dl 178 mg/dl Test 11/04/16 07:13 11/04/16 08:08 11/04/16 10:51 11/04/16 10:52 White Blood Count 12.02 K/uL Red Blood Count 3.13 M/uL Hemoglobin 9.8 g/dL Hematocrit 29.3 % Mean Corpuscular Volume 93.6 fL Mean Corpuscular Hemoglobin 31.3 pg Mean Corpuscular Hemoglobin Concent 33.4 g/dl RDW Standard Deviation 44.2 fL RDW Coefficient of Variation 13.1 % Platelet Count 324 K/uL Mean Platelet Volume 8.8 fL Bedside Glucose 180 mg/dl Ammonia 11.0 umol/L Sodium Level 138 mmol/L Potassium Level 4.0 mmol/L Chloride Level 102 mmol/L Carbon Dioxide Level 30 mmol/L Anion Gap 6.0 mmol/L Blood Urea Nitrogen 22 mg/dl Creatinine 1.10 mg/dl Est Creatinine Clear Calc Drug Dose 40.3 ml/min Estimated GFR () 58.1 Estimated GFR (Non- 50.1 BUN/Creatinine Ratio 19.5 Random Glucose 172 mg/dl Calcium Level 9.9 mg/dl Total Bilirubin 0.1 mg/dl Aspartate Amino Transf (AST/SGOT) 18 U/L Alanine Aminotransferase (ALT/SGPT) 20 U/L Alkaline Phosphatase 101 U/L Total Protein 6.9 gm/dl Albumin 3.1 gm/dl Globulin 3.8 gm/dl Albumin/Globulin Ratio 0.8 Test 11/04/16 11:39 Bedside Glucose 160 mg/dl Mental Examination During interview pt is: uncooperative Appearance: disheveled Eye contact is: poor Motor behavior is: psychomotor retardation Speech: other (predominantly yes no answers, no spontaneous speech) Affect: flat Mood is: other (unable to answer beyond patient says "I am fine") Thought process: other (impaired by current condition) Thought content: other (disorientation) Suicidal thought are: denied Homicidal thoughts are: denied Hallucinations: denies auditory, denies visual Cognition: other (all spheres impaired) Intelligence estimated to be: below average Insight: impaired Judgement: impaired Impression / Recommendations Impression 71-year-old woman admitted with altered mental status. At baseline she is functional at [facility]. She experienced a significant sadness at the loss of her grandson and was described by staff as tearful, crying and depressed after learning of this. Since then she has been in decline and is now at a point where she is poorly communicative, disoriented and unable to participate in questions. Her symptoms are consistent with a catatonia but could also be seen in the context of a depressive pseudodementia. Her CT of the head is normal, her labs relatively stable although she looks a little dry and has some mild anemia. I think it would be safe to proceed with a benzodiazepine challenge in the event that his catatonia and so I will order Ativan 1 mg by mouth now. If she does not take by mouth we will order it IV and I will have the liaison returned to assess in several hours. I think it's also acceptable to empirically treat her depression by increasing her Zoloft to 150 mg daily. We will make further recommendations after we assess the results of the Ativan challenge. Inventory Assets Strengths: Lives in a [place] Risk Factors Assessment : Yes Protective Factors Assessment Employed: No Recommendations (1) Major depressive disorder, recurrent episode, severe with catatonia 11/04 - Patient poorly responsive, disoriented in the context of acute stress. We will proceed with an Ativan challenge starting with Ativan 1 mg by mouth now if unable to take by mouth, will order IV - Increase Zoloft to 150 mg every morning -Supplemental already obtained from [facility] but additional background information may be helpful from a daughter who is noted in the nurse's notes - Further recommendations pending Ativan challenge Has been reviewed with Dr. Kim Daigle
[2016-11-04] MEDS ORDERED: LORAZEPAM INJ 1 MG in SYRINGE 0.5 ML IV ONE (13:45)
--- NOTE | 2016-11-04 14:10 | Progress Note ---
Subjective Date of Service: Nov 04, 2016. Subjective Pt evaluation today including: conversation w/ patient, physical exam, chart review, lab review, review of studies, review of inpatient medication list Catatonic on exam Oriented only to name Answering mostly "no" to most questions asked Problem List Medical Problems: (1) Closed head injury Status: Acute (2) Mood disorder Status: Acute (3) Neck pain Status: Acute Review of Systems Constitutional: No fever, No chills Respiratory: No cough, No sputum, No wheezing, No shortness of breath, No dyspnea on exertion Cardiac: No chest pain, No orthopnea, No PND, No edema, No claudication Abdomen: No pain, No nausea, No vomiting, No diarrhea, No constipation Musculoskeletal: No joint pain, No muscle pain, No swelling, No calf pain Female : No dysuria, No urinary frequency, No hematuria, No incontinence Neurologic: No memory loss, No paralysis, No weakness, No numbness/tingling Psychiatric: No depression symptoms, No anhedonism, No anxiety, No insomnia Heme: No abnormal bleeding/bruising, No clotting problems Endo: No fatigue, No excessive thirst Skin: No rash, No itch Objective Vital Signs Date Time Temp Pulse Resp B/P (MAP) Pulse Ox O2 Delivery O2 Flow Rate FiO2 11/04/16 08:45 Room Air 11/04/16 07:30 37.0 82 16 138/74 (95) 93 Room Air 11/04/16 00:30 Room Air 11/03/16 23:27 37.3 99 20 185/84 (117) 91 Room Air 11/03/16 19:14 Room Air 11/03/16 16:03 36.8 95 18 169/79 (109) 93 Room Air Physical Exam General Appearance: WD/WN, no apparent distress Eyes: normal inspection, PERRL, EOMI, sclerae normal Neck: supple, no adenopathy, thyroid normal, no JVD Respiratory/Chest: chest non-tender, lungs clear, normal breath sounds, no respiratory distress Cardiovascular: regular rate, rhythm, no edema, no gallop, no JVD Abdomen: normal bowel sounds, non tender, soft, no organomegaly Extremities: normal range of motion, non-tender, normal inspection, no pedal edema Neurologic/Psychiatric: no motor/sensory deficits, + depressed affect, + disoriented Laboratory Results Last 24 Hours Test 11/03/16 14:38 11/03/16 16:39 11/03/16 20:13 11/04/16 07:13 Vitamin B12 Level 877 pg/mL Bedside Glucose 187 mg/dl 178 mg/dl White Blood Count 12.02 K/uL Red Blood Count 3.13 M/uL Hemoglobin 9.8 g/dL Hematocrit 29.3 % Mean Corpuscular Volume 93.6 fL Mean Corpuscular Hemoglobin 31.3 pg Mean Corpuscular Hemoglobin Concent 33.4 g/dl RDW Standard Deviation 44.2 fL RDW Coefficient of Variation 13.1 % Platelet Count 324 K/uL Mean Platelet Volume 8.8 fL Test 11/04/16 08:08 11/04/16 10:51 11/04/16 10:52 11/04/16 11:39 Bedside Glucose 180 mg/dl 160 mg/dl Ammonia 11.0 umol/L Sodium Level 138 mmol/L Potassium Level 4.0 mmol/L Chloride Level 102 mmol/L Carbon Dioxide Level 30 mmol/L Anion Gap 6.0 mmol/L Blood Urea Nitrogen 22 mg/dl Creatinine 1.10 mg/dl Est Creatinine Clear Calc Drug Dose 40.3 ml/min Estimated GFR () 58.1 Estimated GFR (Non- 50.1 BUN/Creatinine Ratio 19.5 Random Glucose 172 mg/dl Calcium Level 9.9 mg/dl Total Bilirubin 0.1 mg/dl Aspartate Amino Transf (AST/SGOT) 18 U/L Alanine Aminotransferase (ALT/SGPT) 20 U/L Alkaline Phosphatase 101 U/L Total Protein 6.9 gm/dl Albumin 3.1 gm/dl Globulin 3.8 gm/dl Albumin/Globulin Ratio 0.8 Assessment and Plan 71 y/o F Hx HTN, DM, HPL, asthma, anemia admitted possible because of acute grief and depression on 10/31/2016 per report, pt resides in a fpc owing to mild MR. This past Wed, she learned that a grandson of hers had and became exceedingly upset that she had not attended the . she had not been in contact with the grandson for several years. Since that time she has become progressively more lethargic, seemingly confused and poorly responsive. acute grief and depression with catatonia, ?element of depression pseudodementia needs assistance with eating and drinking, continue supportive care, more encouragement will need updated PT,OT evals consult psych, increased zoloft to 150 mg daily with ativan trial No acute UTI with alpha strep positive, DC antibx DM - pt has a slightly low glu on admission, cont on a Q6H SS without long- acting insulin. HTN - cont Norvasc - she is clinically dehydrated with a slight low Na - HCTZ held Full code - fall risk - placed on SCDs only Continued [facility] stay due to: home environment unsafe for pt Discharge planning: home
[2016-11-04 15:37] VITALS: BP 116/71; PULSE 69; TEMP 36.4; O2SAT 100
[2016-11-04] MEDS: SIMVASTATIN 20 MG TAB PO SCH (19:56)
[2016-11-04] MEDS: MONTELUKAST SOD 10 MG TAB PO SCH (19:57)
[2016-11-04 23:42] VITALS: BP 118/67; PULSE 76; TEMP 37; O2SAT 93
[2016-11-05] MEDS: LEVOTHYROXINE 100 MCG TAB PO SCH (06:03)
[2016-11-05 07:19] VITALS: BP 149/83; PULSE 76; TEMP 36.9; O2SAT 96
[2016-11-05] MEDS: LISINOPRIL 40 MG TAB PO SCH (09:05)
[2016-11-05] MEDS: AMLODIPINE BESYLATE 5 MG TAB PO SCH (09:05)
[2016-11-05] MEDS: FERROUS SULFATE 325 MG TAB PO SCH ×3 (09:05→17:41)
[2016-11-05] MEDS: PRIMIDONE 50 MG TAB PO SCH ×3 (09:06→21:24)
[2016-11-05] MEDS: SERTRALINE HCL 50 MG TAB PO SCH (09:06)
[2016-11-05] MEDS: HEPARIN SOD 5000 UNIT/0.5 ML CARP SQ SCH ×2 (09:06→21:30)
[2016-11-05] MEDS: OMEGA-3 (PURIFIED FISH OIL) 1 GM CAP PO SCH (09:06)
[2016-11-05] MEDS: BUDESONIDE/FORMOTEROL FUMARATE 160/4.5 60 PUFFS/INHALER INH SCH ×2 (09:07→21:23)
[2016-11-05] MEDS: MAGNESIUM OXIDE 400 MG TAB PO SCH ×4 (09:07→21:23)
[2016-11-05] MEDS: PANTOprazole SOD 40 MG TAB PO SCH (09:07)
[2016-11-05] MEDS: INSULIN ASPART 100 UNITS/ML 3 ML PEN SC SCH ×4 (09:36→21:15)
--- NOTE | 2016-11-05 13:04 | Progress Note ---
Subjective Date of Service: Nov 05, 2016. Subjective Pt evaluation today including: conversation w/ patient, conversation w/ family , physical exam, chart review, lab review, review of studies, review of inpatient medication list Pt more conversive in AM Oriented to self and able to recognize the sister and knows shes in the hospital No distress noted No acute events overnight Problem List Medical Problems: (1) Closed head injury Status: Acute (2) Mood disorder Status: Acute (3) Neck pain Status: Acute Review of Systems Constitutional: No fever, No chills, No sweats, No weakness Eyes: No worsening of vision, No eye pain, No redness, No discharge Respiratory: No cough, No sputum, No wheezing, No shortness of breath, No dyspnea on exertion Cardiac: No chest pain, No orthopnea, No PND, No edema Abdomen: No pain, No nausea, No vomiting, No diarrhea Musculoskeletal: No joint pain, No muscle pain, No swelling, No calf pain Female : No dysuria, No urinary frequency, No hematuria, No incontinence Neurologic: No memory loss, No paralysis, No weakness, No numbness/tingling Psychiatric: No depression symptoms, No anhedonism, No anxiety, No insomnia Endo: No fatigue, No excessive thirst Skin: No rash, No itch Objective Vital Signs Date Time Temp Pulse Resp B/P (MAP) Pulse Ox O2 Delivery O2 Flow Rate FiO2 11/05/16 08:45 Room Air 11/05/16 07:19 36.9 76 18 149/83 (105) 96 Room Air 11/05/16 00:00 Room Air 11/04/16 23:42 37.0 76 20 118/67 (84) 93 Room Air 11/04/16 20:00 Room Air 11/04/16 16:00 Room Air 11/04/16 15:37 36.4 69 18 116/71 (86) 100 Room Air Physical Exam General Appearance: WD/WN, no apparent distress Neck: supple, no adenopathy, thyroid normal Respiratory/Chest: chest non-tender, lungs clear, normal breath sounds, no respiratory distress Cardiovascular: regular rate, rhythm, no edema, no gallop, no JVD Abdomen: normal bowel sounds, non tender, soft, no organomegaly Extremities: normal range of motion, non-tender, normal inspection, no pedal edema Neurologic/Psychiatric: no motor/sensory deficits, alert, normal mood/affect, + disoriented Laboratory Results Last 24 Hours Test 11/04/16 16:22 11/04/16 20:07 11/05/16 07:55 11/05/16 11:46 Bedside Glucose 148 mg/dl 287 mg/dl 185 mg/dl 196 mg/dl Assessment and Plan 71 y/o F Hx HTN, DM, HPL, asthma, anemia admitted possible because of acute grief and depression on 10/31/2016 per report, pt resides in a senior living owing to mild MR. This past Wed, she learned that a grandson of hers had and became exceedingly upset that she had not attended the . she had not been in contact with the grandson for several years. Since that time she has become progressively more lethargic, seemingly confused and poorly responsive. Acute grief and depression with catatonia, ?element of depression pseudodementia needs assistance with eating and drinking, continue supportive care, more encouragement will need updated PT,OT evals consult psych, increased zoloft to 150 mg daily with ativan trial Improvement in cognition, cont to monitor, sister would like pt to return to [facility] No acute UTI with alpha strep positive, DC antibx DM - pt has a slightly low glu on admission, cont on a Q6H SS without long- acting insulin. HTN - cont Norvasc - she is clinically dehydrated with a slight low Na - HCTZ held Full code - fall risk - placed on SCDs only Continued [facility] stay due to: home environment unsafe for pt Discharge planning: home
[2016-11-05 14:35] VITALS: BP 122/63; PULSE 77; TEMP 36.6; O2SAT 96
[2016-11-05] MEDS: SIMVASTATIN 20 MG TAB PO SCH (21:24)
[2016-11-05] MEDS: MONTELUKAST SOD 10 MG TAB PO SCH (21:24)
[2016-11-06 00:15] VITALS: BP 144/66; PULSE 74; TEMP 36.6; O2SAT 95
[2016-11-06] MEDS: LEVOTHYROXINE 100 MCG TAB PO SCH (06:03)
[2016-11-06 07:21] VITALS: BP 151/78; PULSE 80; TEMP 36.6; O2SAT 92
[2016-11-06] MEDS: MAGNESIUM OXIDE 400 MG TAB PO SCH ×3 (08:25→17:06)
[2016-11-06] MEDS: AMLODIPINE BESYLATE 5 MG TAB PO SCH (08:25)
[2016-11-06] MEDS: PRIMIDONE 50 MG TAB PO SCH ×2 (08:25→14:32)
[2016-11-06] MEDS: SERTRALINE HCL 50 MG TAB PO SCH (08:25)
[2016-11-06] MEDS: FERROUS SULFATE 325 MG TAB PO SCH ×3 (08:26→17:06)
[2016-11-06] MEDS: OMEGA-3 (PURIFIED FISH OIL) 1 GM CAP PO SCH (08:26)
[2016-11-06] MEDS: LISINOPRIL 40 MG TAB PO SCH (08:26)
[2016-11-06] MEDS: BUDESONIDE/FORMOTEROL FUMARATE 160/4.5 60 PUFFS/INHALER INH SCH (08:26)
[2016-11-06] MEDS: PANTOprazole SOD 40 MG TAB PO SCH (08:27)
[2016-11-06] MEDS: INSULIN ASPART 100 UNITS/ML 3 ML PEN SC SCH ×3 (08:57→17:11)
[2016-11-06] MEDS: HEPARIN SOD 5000 UNIT/0.5 ML CARP SQ SCH (09:15)
[2016-11-06] MEDS ORDERED: ZLF50 PO (11:42)
--- NOTE | 2016-11-06 11:45 | Discharge Instructions ---
Discharge Instructions Date of Service Nov 06, 2016. Admission Reason for Admission: Catatonia, Uti Discharge Discharge Diagnosis / Problem: Catatonia, Depression Discharge Goals Goal(s): Decrease discomfort, Improve function, Increase independence, Improve disease control, Learn about illness, Diagnostic testing, Prevent Disease Progression Activity Recommendations Activity Limitations: resume your previous activity Exercise/Sports Limitations: as tolerated . 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 Who to Call and When: Medical Emergencies: If at any time you feel your situation is an emergency, please call 911 immediately. . Non-Emergent Contact Non-Emergency issues call your: Primary Care Provider Call Non-Emergent contact if: you have any medication questions . . "Provider Documentation" section prepared by Shadi Buck. . VTE Core Measure Inpt VTE Proph given/why not?: SCD's
[2016-11-06 12:10] VITALS: BP 151/78; PULSE 80; TEMP 36.6; O2SAT 92
--- NOTE | 2016-11-06 12:47 | Psychiatric Progress Notes ---
Psychiatric Progress Note Date of Service Nov 06, 2016. Notes ID: Patient reviewed with liaison nurse. Initial consult completed by HAKEEM Greer on 11/04. CC: catatonia resolved after Ativan HPI: cooperative with care, some mild confusion at times ROS: patient is without complaints MSE: alert, cooperative, short answers to questions, very concrete. Denies SI/ HI. Did not appear to be responding to internal stimuli Imp: same as initial consult. Plan: Zoloft was increased on initial consult, patient is psychiatrically stable for discharge to personal senior living. PCP is managing SSRI. cue to cognitive limitations patient has difficulty processing what happened
[2016-11-06 15:49] VITALS: BP 167/91; PULSE 81; TEMP 36.7; O2SAT 97
--- NOTE | 2016-11-06 16:22 | Discharge Summary ---
Discharge Summary Date of Service Nov 06, 2016. Discharge Summary Admission Date: Oct 31, 2016 at 00:59 Discharge Date: Nov 06, 2016 Discharge Disposition: Personal care Principal Diagnosis: Depression pseudodementia Immunizations: Have You Had Influenza Vaccine: Yes Influenza Vaccine Date: Dec 20, 2008 History of Tetanus Vaccine?: Yes Tetanus Immunization Date: Mar 13, 1989 History of Pneumococcal: Yes Pneumococcal Date: Dec 20, 2008 History of Hepatitis B Vaccine: Unknown Consultations: Psychiatry Medication Reconciliation New Medications: Sertraline HCl (Sertraline HCl) 50 Mg Tab 150 MG PO QAM, #30 TAB Continued Medications: Acetaminophen (Tylenol) 325 Mg Tab 1-2 TABS PO Q6H PRN for Pain, TAB Albuterol Hfa (Ventolin Hfa) 200 Puffs/15254 Mcg Aers 2 PUFFS INH Q4H PRN for Shortness of Breath, #1 INHALER Amlodipine (Norvasc) 5 Mg Tab 5 MG PO QAM, TAB Ascorbic Acid (Vitamin C) 500 Mg Tab 1 TAB PO TID Budesonide/Formoterol Fumarate (Symbicort 160/4.5 Inhaler ) Aero 2 PUFFS INH BID, INHALER Calcium/Vitamin D (Os-Shahid 500 Plus D) Tab 1 TAB PO BID, TAB Ferrous Sulfate (Kp Ferrous Sulfate) 325 Mg Tab 325 MG PO TID for 30 Days, #90 TAB 3 Refills Fish Oil ([place]-3) 1 Ea Cap 1000 MG PO QAM, CAP Hydrochlorothiazide (Hctz) 25 Mg Tab 25 MG PO QAM, TAB Insulin Glargine (Lantus Solostar) 100 Unit/Ml Inj 35 UNITS SC QAM, PEN Insulin Glargine (Lantus Solostar) 100 Unit/Ml Inj 18 UNITS SC QPM, PEN Ipratropium-Albuterol (Duoneb) 3 Ml Nebu 1 TREATMENT INH Q4H PRN for Shortness of Breath, INHA Ketotifen Fumarate (Ophth) (Zaditor 0.025% Oph) 0.025 % Jarrett 1 DROP OPB BID, BTL Levothyroxine Sodium (Levothyroxine Sodium) 100 Mcg Tab 100 MCG PO QAM Lisinopril (Zestril) 40 Mg Tab 40 MG PO QAM, TAB Magnesium Oxide (Mag-Ox) 400 Mg Tab 400 MG PO QID Metformin Hcl (Glucophage Ext Rel) 1,000 Mg Tab 1000 MG PO BID, TAB Montelukast Sodium (Singulair) 10 Mg Tab 10 MG PO QPM, TAB Multiple Vitamins W/ Minerals (Centrum Silver Ultra Wome) 1 Tab Tab 1 TAB PO QAM Omeprazole (Prilosec) 20 Mg Capcr 20 MG PO QAM, CAP 30 MINS BEFORE BREAKFAST Primidone (Mysoline) 50 Mg Tab 50 MG PO TID, TAB Probiotic Product (Probiotic) 1 Cap Cap 1 CAP PO QAM Simvastatin (Zocor) 20 Mg Tab 20 MG PO QPM, TAB Sitagliptin Phosphate (Januvia) 100 Mg Tab 100 MG PO QAM, TAB Discontinued Medications: Sertraline Hcl (Zoloft) 50 Mg Tab 100 MG PO QAM, TAB Terbinafine Hcl (Terbinafine Hcl) 250 Mg Tab 250 MG PO DAILY TAKE FOR 2 WEEKS THEN OFF 2 WEEKS , REPEAT FOR ANTIFUNGAL Discharge Exam Review of Systems: Constitutional: No fever, No chills, No sweats, No weakness Eyes: No worsening of vision, No eye pain, No redness, No discharge Respiratory: No cough, No sputum, No wheezing, No shortness of breath Cardiovascular: No chest pain, No orthopnea, No PND, No edema Abdomen: No pain, No nausea, No vomiting, No diarrhea Musculoskeletal: No joint pain, No muscle pain, No swelling, No calf pain Genitourinary - Female: No dysuria, No urinary frequency, No urinary urgency , No urinary incontinence Neurologic: No memory loss, No paralysis, No weakness, No numbness/tingling Psychiatric: No depression symptoms, No anhedonism, No anxiety, No insomnia Endocrine: No fatigue, No excessive thirst, No excessive urination Integumentary: No rash, No itch Physical Exam: General Appearance: WD/WN, no apparent distress Eyes: normal inspection, PERRL, EOMI, sclerae normal Neck: supple, no adenopathy, thyroid normal, no JVD Respiratory/Chest: chest non-tender, lungs clear, normal breath sounds, no respiratory distress Cardiovascular: regular rate, rhythm, no edema, no gallop, no JVD Abdomen / GI: normal bowel sounds, non tender, soft, no organomegaly Extremities: normal inspection, no calf tenderness, normal capillary refill , no pedal edema Neurologic/Psychiatric: alert, + depressed affect, + disoriented Skin: normal color, warm/dry, no rash Lymphatic: no adenopathy Hospital Course 71 y/o F Hx HTN, DM, HPL, asthma, anemia admitted possible because of acute grief and depression on 10/31/2016 Per report, pt resides in a fpc owing to mild MR. This past Wed, she learned that a grandson of hers had and became exceedingly upset that she had not attended the . she had not been in contact with the grandson for several years. Since that time she has become progressively more lethargic, seemingly confused and poorly responsive. Acute grief and depression with catatonia, ?element of depression pseudodementia Needs assistance with eating and drinking, continue supportive care, more encouragement PT,OT consulted Consult psychiatry, increased zoloft to 150 mg daily with ativan trial Improvement in cognition, cont to monitor, sister would like pt to return to [facility] No acute UTI with alpha strep positive, DC antibx DM - pt has a slightly low glu on admission, cont on a Q6H SS without long- acting insulin. HTN - cont Norvasc - she is clinically dehydrated with a slight low Na - HCTZ held, can continue on DC Full code - fall risk - placed on SCDs only Total Time Spent: Greater than 30 minutes This includes examination of the patient, discharge planning, medication reconciliation, and communication with other providers. Discharge Instructions Please refer to the electronic Patient Visit Report (Discharge Instructions) for additional information. Additional Copies To Franki Fernandez M.D.
--- NOTE | 2016-11-10 11:56 | EDITING REQUIRED CODING QUERY ---
CODING QUERY To promote full compliance with coding requirements relating to patient care, provider participation is requested in all cases of barrel tester uncertainty. Please assist us with the question(s) below: Coding Question(s): " Acute grief and depression with catatonia, ?element of depression pseudodementia" is documented. Please clarify below, in your clinical opinion, regarding the catatonia. 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 ( ) catatonia (schizophrenia) ( ) stupor Physician's Response(s): Thank you Addis Rodriguez Principal Diagnosis: "_that condition established after study, to be chiefly responsible for occasioning the admission of the patient to the hospital for care." Co-Existing Principal Diagnosis: "_when two or more diagnoses equally meet the criteria for principal diagnosis as determined by the circumstances of admission, diagnostic work up, and/or therapy provided, and the Alphabetic Index, Tabular List, or another coding guideline does not provide sequencing direction, any one of the diagnoses may be sequenced first." "When the physician has documented what appears to be a current diagnosis in the body of the record, but has not included the diagnosis in the final diagnostic statement, the physician should be asked whether the diagnosis should be added." (Source Coding [facility] 2 QTR90. p3-4)
== END 2016-11-06 17:55 | disposition home or self-care (01) | DRG 885 ==
LOC: C.EDB 19:03 → C.MS4W 10-31 00:59 → ENRESERV 10-31 01:49
PROVIDERS: ADMIT Internal Medicine; ATTEND Hospitalist
DX: F33.2 Major depressive disorder, recurrent severe without psychotic features (principal); F06.1 Catatonic disorder due to known physiological condition; F02.80 Dementia in other diseases classified elsewhere, unspecified severity, without behavioral disturbance, psychotic disturbance, mood disturbance, and anxiety; F43.21 Adjustment disorder with depressed mood; F70 Mild intellectual disabilities; J45.909 Unspecified asthma, uncomplicated; E11.9 Type 2 diabetes mellitus without complications; I10 Essential (primary) hypertension; D50.9 Iron deficiency anemia, unspecified; E78.5 Hyperlipidemia, unspecified; Z79.899 Other long term (current) drug therapy; Z79.4 Long term (current) use of insulin; Z87.440 Personal history of urinary (tract) infections; Z82.5 Family history of asthma and other chronic lower respiratory diseases

== ENCOUNTER → 2017-04-20 | Outpatient (CLI) | payer OTHER ==
[~2017-04-20] MED LIST changes: -DEXT4CHW60 PO; +FERR1TAB13 PO; -FERR325T51 PO; -INSDGI SC; +INSDGIPEN SC; -INSUINJ4 SQ; +MISCCAP80 PO; -POLY99.02 OPB; -PROAIR INH; -SERT1TAB71 PO; +VNTHFA/IN INH; +ZLF50 PO
--- NOTE | 2017-04-20 09:29 | DIAGNOSTIC IMAGING REPORT ---
RIGHT KNEE 3 VIEWS, LEFT KNEE 3 VIEWS HISTORY: Bilateral knee pain. COMPARISON: Bilateral knees 11/05/2015. FINDINGS: There is no fracture or dislocation. Soft tissues are unremarkable. Mild vascular calcifications. No knee effusions. Cartilage spaces are maintained for age within the right knee. Small tricompartmental marginal osteophytes within the left knee. Mild cartilage space narrowing within the medial compartment of the left knee. This is not significantly changed. IMPRESSION: 1. No fractures identified within the right or left knee. 2. Mild left knee osteoarthritis, unchanged. 3. Cartilage spaces are maintained for age within the right knee. Electronically signed by: Saul Rojas M.D. 04/20/2017 9:28 AM Dictated Date/Time: 04/20/2017 9:22 AM
== END | disposition home or self-care (01) ==
LOC: C.RAD1850 09:04
PROVIDERS: ATTEND Physician Assistant
DX: M25.569 Pain in unspecified knee (principal)

== ENCOUNTER → 2017-06-07 | Outpatient (CLI) | payer OTHER ==
--- NOTE | 2017-06-08 07:41 | MAMMOGRAPHY REPORT ---
BILATERAL DIGITAL SCREENING MAMMOGRAM TOMOSYNTHESIS WITH CAD: 06/07/2017 CLINICAL HISTORY: Routine screening. Patient has no complaints. TECHNIQUE: Breast tomosynthesis in addition to standard 2D mammography was performed. Current study was also evaluated with a Computer Aided Detection (CAD) system. COMPARISON: Comparison is made to exams dated: 05/29/2015 mammogram, 06/02/2016 mammogram, 05/28/2014 ma mmogram, 03/16/2012 mammogram, 03/09/2011 mammogram - [facility], and 12/10/2008. BREAST COMPOSITION: There are scattered areas of fibroglandular density in both breasts. FINDINGS: There are mild vascular calcifications in the breasts and scattered benign round and rim ca lcifications. No suspicious mass, architectural distortion or cluster of suspicious microcalcificati ons is seen. IMPRESSION: ACR BI-RADS CATEGORY 1: NEGATIVE There is no mammographic evidence of malignancy. A 1 year screening mammogram is recommended. The pa tient will receive written notification of the results. Approximately 10% of breast cancers are not detected with mammography. A negative mammographic report should not delay biopsy if a clinically suggestive mass is present. Rosy Sotomayor M.D. ay/:06/07/2017 16:26:41 Fowl Blood Tester: Pratima MARTIN(R)(M), [facility] letter sent: Normal 1/2 BI-RADS Code: ACR BI-RADS Category 1: Negative
== END | disposition home or self-care (01) ==
LOC: C.MAMM 13:49
PROVIDERS: ATTEND Internal Medicine
DX: Z12.31 Encounter for screening mammogram for malignant neoplasm of breast (principal)

== ENCOUNTER 2023-05-14 09:48 | Inpatient (IN) ==
[2023-05-14] MEDS: SODIUM CHLORIDE 0.9% 1,000 ML IV SCH ×2 (10:14→12:25)
--- NOTE | 2023-05-14 10:31 | Emergency Department Note ---
Impression & Plan Acute pain of left lower extremity, Hyperglycemia, Closed fracture of left hip, Hyperkalemia, Elevated troponin, JANICE (acute kidney injury), Hypoxia ED Provider Note ED Provider Note NAME: FELIPE MORE AGE:77 SEX: Female : 1945 ARRIVES VIA: EMS INFORMANT: Patient, EMS, sister ED PROVIDER(s): Tara Contreras, CHIEF COMPLAINT: Left leg pain, elevated blood sugar HPI: This is a 77-year-old female who presents to the emergency department via EMS due to concern at [facility] for her complaints of left lower extremity pain, and elevated blood glucose readings. Patient with a complex past medical history. A sister presents at bedside to help provide history as well. She states staff there was concern for possible evolving infection as well as possible DVT in the left leg due to her complaints of pain. Sister states patient has been at [facility] for approximately 1 year. She does have difficulty with memory. Sister states she has had issues with urinary tract infections additionally. EMS also noted she was mildly hypoxic 88% so she was placed on oxygen via nasal cannula 2 L/min with improvement. Patient denies feeling short of breath or having chest pain. Sister states she has a port in her abdomen that they give her IV fluids through because she very easily dehydrates. Accompanying paperwork includes a POLST form that does show limited interventions as the patient's wishes. PAST MEDICAL HISTORY:See Below PAST SURGICAL HISTORY:See Below FAMILY HISTORY:See Below SOCIAL HISTORY:See Below HOME MEDICATIONS:See Below ALLERGIES:See Below VITALS:See Below PHYSICAL EXAMINATION: GENERAL: alert, well appearing, well nourished, no distress, non-toxic EYE EXAM: normal conjunctiva, PERRL and EOM's grossly intact OROPHARYNX: no exudate, no erythema, lips, buccal mucosa, and tongue normal and mucous membranes are dry NECK: supple, no nuchal rigidity, no adenopathy, non-tender LUNGS: Clear but diminished to auscultation. Normal chest wall mechanics, no w/r/r, no increased work of breathing HEART: no murmurs, S1 normal and S2 normal ABDOMEN: abdomen soft, non-tender, normo-active bowel sounds, no masses, no rebound or guarding. Indwelling line noted in the central abdomen. BACK: Back is symmetrical on inspection and there is no deformity, no midline tenderness, no CVA tenderness. SKIN: no rashes, petechiae, orbruising UPPER EXTREMITIES: upper extremities are grossly normal. FROM, nml pulses b/l. LOWER EXTREMITIES: No pitting edema. FROM RLE, nml pulses b/l. No obvious trauma or deformity. Patient holds the left lower extremity in external rotation. Pain with any light touch along the left lower extremity. No joint effusions, compartments soft. NEURO EXAM: Confused to past medical history and chronology of events, cranial nerves II-XII grossly intact, normal speech, no facial droop,nogross weakness of arms, no gross weakness of legs. Gross sensation intact. No ataxia. Vital Signs: reviewed and remarkable Differential Diagnosis: Dehydration, UTI, URI, DVT, pneumonia, aspiration, medication ADR, CHF, ACS, as well as others were considered MEDICAL DECISION MAKING: This is a 77-year-old female who presents via EMS due to staff concern for elevated blood glucose readings and complaints of left leg pain. No other information available from EMS per their report. Repeat blood glucose check here was elevated. There was some difficulty obtaining IV access however labs are drawn and sent, IV established, EKG and x-rays performed at bedside and interpreted by me and patient monitored on telemetry. Patient noted to have a left intertrochanteric hip fracture which likely explains the left leg pain and edema. Upon further discussion with family at bedside they states she fell 3 times last week and outpatient x-rays performed by [facility] were reported to them as negative however she has not been able to stand or walk since then. Patient was started on IV fluids initially due to borderline hypotension. As more information and results became available, these were opened up given her hypotension. I did review her prior echo which was reassuring and I do not suspect she is an imminent risk for congestive heart failure and feels she requires a volume resuscitation at this time as she did appear clinically dehydrated. Patient was taken from x-ray to ultrasound of the left lower extremity. Ultrasound was negative for DVT. Due to concern for borderline blood pressure and noted initial hypoxia of 88 to 89% requiring oxygen, I was concern for occult PE given immobility from fracture over the course of the last week. Unfortunately patient's creatinine resulted at 2.9 which is markedly elevated for her and so initial orders for CT angiography of the chest as well as CT of the abdomen and pelvis with IV contrast were discontinued. Patient noted to have leukocytosis additionally. She was given IV cefepime as cultures were added. Patient did not have significant hyperglycemia here, no evidence of DKA. Mild accompanying hyperkalemia likely from JANICE and dehydration, no accompanying EKG changes. Patient given 8 units of IV insulin. Case discussed with hospitalist for additional evaluation and management. Plan due to my concerns for possible occult PE at the time were to try and volume resuscitate the patient and recheck a BMP and if improved proceed with CT with IV contrast for further evaluation. Due to delays in additional IV fluids by nursing staff I spiked and hung a second liter myself as her blood pressure would drift down when off of IV fluids. Hospitalist added additional orders for IV fluids as well as additional markers for sepsis. I rechecked the patient multiple times and updated her and her sister multiple times on results and plan as well as the need for further evaluation and interventions due to significant illness and concern for hypotension and hypoxia. Hospitalist spoke with them as well as the patient's daughter as well. Consultation(s): 1200: Discussed with Dr. Rand, [facility] hospitalist, for additional evaluation and management ER Treatment Provided: See below 1128: I updated patient and sister at bedside. Sister states she fell 3 times last . She states they did x-rays of her foot and ankle, she does not recall stated other x-rays of the left lower extremity. She was told the x-rays were all negative. Patient states she has not been able to stand or walk since the falls a week ago. Diagnostics Interpreted By Me: -ECG: Normal sinus at 86, normal axis, normal intervals, no acute ischemic changes, PVC noted -Cardiac Monitoring: An order was placed for continuous cardiac monitoring. The monitor shows a rate of 82 with normal sinus rhythm. -Laboratory studies: As stated above and show below. -Imaging studies: X-ray hip/pelvis: Left intertrochanteric hip fracture Triage Nursing Note Reviewed Prior/Outside Records Reviewed -prior discharge summary reviewed Critical Care: Critical care of 47 min performed to assess and manage high likelihood of life- threatening hypoxia and hypotension, involving labs and imaging performed with assessment to evaluate hypoxia and hypotension diagnosis with frequent reassessment. This time includes bedside time, treatment discussions with patient/family/consultants, documentation time and excludes procedure time. Past Med/Surg History Medical History Stage 3b chronic kidney disease Acute hyponatremia Hypertension Anemia Back pain Benign colonic polyp DM type 2 (diabetes mellitus, type 2) GERD without esophagitis History of aspiration pneumonia History of fall Hyperlipidemia Hypothyroidism Muscle weakness Venous insufficiency Mental retardation Bronchitis COPD exacerbation Asthma Surgical History Recent surgical procedure on lower extremity left leg and ankle surgery History of foot surgery History of section History of oral surgery History of cataract surgery Family History Mother Diabetes type 2 Cardiac murmur Hypertension Asthma Father Bone cancer Social History Smoking Status: Unknown if ever smoked Second Hand Exposure: No; Do You Dip or Chew Tobacco: No; Hx Alcohol Use: No Hx Substance Use: No Preferred Language: Persian Communication Ability: Effective Visual Impairment: No Limitations Hearing Ability: Normal Station Worker Required: No Beliefs That Will Affect Care: None marital status: Single Current Living Situation: Detention Current Living Situation Comment: [facility] current occupational status: disabled Feels Safe at Home: Yes Childhood Exposure to Second-Hand Smoke: No Seatbelt Use: always Assistive Devices: Denture - Upper, Denture - Lower, Glasses, Walker and Wheelchair Allergies Allergies Allergy/AdvReac Type Severity Reaction Status Date / Time No Known Drug Allergies Allergy Unknown Verified 12/18/22 02:05 Home Meds Home Medications Medication Instructions Recorded Confirmed pen needle, diabetic 31 gauge x #30 ea 10/03/18 12/04/22/16" (BD Ultra-Fine Short Pen Needle) atorvastatin 40 mg tablet 40 mg PO HS 06/16/22 12/18/22 acetaminophen 325 mg capsule 650 mg PO Q6H PRN temp>101 12/18/22 12/18/22 acetaminophen 325 mg tablet 650 mg PO Q12 muscle weakness 12/18/22 12/18/22 (Tylenol) cholecalciferol (vitamin D3) 25 25 mcg PO DAILY 12/18/22 12/18/22 mcg (1,000 unit) tablet (Vitamin D3) dextran 70-hypromellose eye drops 1 drp OPB QID 10/20/23 10/20/23 in a dropperette (Artificial Tears (PF) drops in a dropperette) ezetimibe 10 mg tablet 10 mg PO HS 12/18/22 12/18/22 levothyroxine 88 mcg tablet 88 mcg PO DAILY 12/18/22 12/18/22 [id number] 8 mg-folic 400 1 tab PO DAILY 12/18/22 12/18/22 mcg-K 50 mcg-lutein 300 mcg tablet (Centrum Silver Women) omega-3s 300 cx-hpk-fcf-other 1 cap PO DAILY 12/18/22 12/18/22 [id number] oil 1,000 mg capsule ([place]-3 Fish Oil) ondansetron HCl 4 mg tablet 4 mg PO Q6 PRN Nausea And Vomiting 12/18/22 12/18/22 tramadol 50 mg tablet 50 mg PO Q8 PRN Pain 12/18/22 12/18/22 Previous Rx's Medication Instructions Recorded albuterol sulfate 90 mcg/actuation 2 inh inhalation Q4H PRN shortness 12/24/20 aerosol inhaler (ProAir HFA) of breath or wheezing #8.5 grams ipratropium 0.5 mg-albuterol 3 mg 3 ml inhalation Q8H PRN sob #180 mL 12/24/20 (2.5 mg base)/3 mL nebulization len Dempsey #1 ea 01/10/21 blood sugar diagnostic (Contour #400 ea 03/10/21 Next Test Strips) amlodipine 5 mg tablet 5 mg PO QAM #90 tabs 03/19/21 lisinopril 40 mg tablet 40 mg PO QAM #90 tabs 08/07/21 sitagliptin phosphate 50 mg tablet 50 mg PO DAILY #30 tabs 08/29/21 (Januvia) fluticasone 250 mcg-salmeterol 50 1 inh inhalation BID #60 ea 09/30/21 mcg/dose blistr powdr for inhalation (Advair Diskus) pen needle,diabetic dual safty 30 #100 ea 11/13/21 gauge x 3/16" (BD AutoShield Duo Pen Needle) lancets 33 gauge ([place] 1 #100 ea 12/16/21 Lancets) donepezil 10 mg tablet 10 mg PO DAILY #90 tabs 12/18/21 omeprazole 20 mg capsule,delayed 20 mg PO QAM #90 caps 01/14/22 release aspirin 81 mg tablet,delayed 81 mg PO QAM #60 tabs 12/26/22 release sertraline 100 mg tablet 100 mg PO DAILY #60 tabs 12/26/22 Results & Data (ED) Vital Signs Vital Signs - 24 hr 05/14/23 09:58 05/14/23 09:58 05/14/23 10:21 Temperature 38 C H 38 C H Temperature Source Oral Oral Pulse Rate 88 86 Pulse Rate [Apical] 88 Pulse Rate from SpO2 Sensor Respiratory Rate 18 18 Respiratory Effort / Characteristics Non-Labored Spontaneous Non-Labored Spontaneous Respiratory Depth Normal Normal Blood Pressure 99/62 L Blood Pressure [Right Arm] 99/62 L Blood Pressure Mean 74 Blood Pressure Mean [Right Arm] 74 Blood Pressure Position Lying Blood Pressure Position [Right Arm] Lying Pulse Oximetry 94 94 Oxygen Delivery Method Room Air Room Air Oxygen Flow Rate Sepsis Recent Fever Within 48 Hours No Sepsis New/Unexplained Change in Mental Status N/A Sepsis Action Taken by Nursing No Action Required 05/14/23 11:20 05/14/23 13:33 05/14/23 14:24 Temperature Temperature Source Pulse Rate 80 Pulse Rate [Apical] 85 90 Pulse Rate from SpO2 Sensor Respiratory Rate 17 20 Respiratory Effort / Characteristics Respiratory Depth Blood Pressure Blood Pressure [Right Arm] 99/50 L 104/53 L Blood Pressure Mean Blood Pressure Mean [Right Arm] 66 70 Blood Pressure Position Blood Pressure Position [Right Arm] Lying Lying Pulse Oximetry 88 L 99 Oxygen Delivery Method Room Air Nasal Cannula Oxygen Flow Rate 2 Sepsis Recent Fever Within 48 Hours Sepsis New/Unexplained Change in Mental Status Sepsis Action Taken by Nursing 05/14/23 15:00 Temperature Temperature Source Pulse Rate 82 Pulse Rate [Apical] Pulse Rate from SpO2 Sensor 80 Respiratory Rate 23 Respiratory Effort / Characteristics Respiratory Depth Blood Pressure 94/46 L Blood Pressure [Right Arm] Blood Pressure Mean 62 Blood Pressure Mean [Right Arm] Blood Pressure Position Blood Pressure Position [Right Arm] Pulse Oximetry 95 Oxygen Delivery Method Oxygen Flow Rate Sepsis Recent Fever Within 48 Hours Sepsis New/Unexplained Change in Mental Status Sepsis Action Taken by Nursing Laboratory Data 05/14/23 10:09 05/14/23 10:09 Lab Results 05/14/23 05/14/23 05/14/23 Range/Units 09:56 10:09 10:12 WBC 28.38 H (4.8-10.8) K/ul RBC 2.97 L (4.20-5.40) M/uL Hgb 9.4 L (12.0-16.0) g/dl POC Hgb (12.0-16.0) g/dl Hct 28.3 L (37.0-47.0) % POC Hct (37-47) % MCV 95.3 (80.0-100.0) fL MCH 31.6 (25.0-34.0) pg MCHC 33.2 (32.0-36.0) g/dL RDW Std Deviation 55.9 H (36.4-46.3) fL RDW Coeff of Ragini 16.0 H (11.5-14.5) % Plt Count 310 (130-400) K/uL MPV 11.5 (9.4-12.4) fL Immature Gran % (Auto) 2.0 % Neut % (Auto) 92.4 % Lymph % (Auto) 3.0 % Louisa % (Auto) 2.5 % Eos % (Auto) 0.0 % Baso % (Auto) 0.1 % Neut # (Auto) 26.22 H (1.40-6.50) K/uL Lymph # (Auto) 0.85 L (1.20-3.40) K/uL Louisa # (Auto) 0.72 H (0.11-0.59) K/uL Eos # (Auto) 0.00 (0.00-0.50) K/uL Baso # (Auto) 0.03 (0.00-0.20) K/uL Immature Gran # (Auto) 0.56 H (0.01-0.20) K/uL Absolute Nucleated RBC 0.06 (0.00-0.12) K/uL Nucleated RBC % (auto) 0.2 % Dohle Bodies 1+ Anisocytosis Present PT 11.7 (9.0-12.0) Seconds INR 1.1 (0.9-1.1) APTT (21-31) Seconds PTT Ratio POC Sodium (135-144) mmol/L Sodium 124 L (136-145) mmol/L POC Potassium (3.3-5.0) mmol/L Potassium 6.2 H* (3.5-5.1) mmol/L POC Chloride (101-112) mmol/L Chloride 94 L (98-107) mmol/L Carbon Dioxide 19 L (21-32) mmol/L POC Total CO2 (24-31) mmol/L Anion Gap 11 (3-11) POC Anion Gap (16-25) mmol/L POC BUN (7-18) mg/dl BUN 115 H (6-23) mg/dl Creatinine 2.90 H (0.6-1.2) mg/dl POC Creatinine (0.6-1.3) mg/dl Est Cr Clr Drug Dosing 13.3 ml/min Est GFR ( Amer) 17.3 ml/min Est GFR (Non-Af Amer) 14.9 ml/min BUN/Creatinine Ratio 39.7 H (10-20) Glucose 531 H* (70-99(Fasting)) mg/dl POC Glucose 498 H* (70-99) mg/dl POC Glucose (other) (70-99) mg/dl Lactate (0.4-2.0) mmol/L Calcium 9.0 (8.6-10.3) mg/dl POC Ioniz Calcium Tee (1.12-1.32) mmol/l Magnesium 2.2 (1.7-2.4) mg/dl Total Bilirubin 0.4 (0.2-1.0) mg/dl AST 200 H (13-39) U/L ALT 166 H (7-52) U/L Alkaline Phosphatase 155 H (34-104) U/L Troponin I High Sens 59.6 H* (0-14) pg/ml Total Protein 6.3 (6.0-8.3) gm/dl Albumin 2.6 L (3.4-5.0) gm/dl Globulin 3.7 (2.5-4.0) gm/dl Albumin/Globulin Ratio 0.7 L (0.9-2) Lipase 42 (11-82) U/L Procalcitonin (0-0.5) ng/ml TSH 0.140 L (0.300-4.500) uIu/ml Free T4 0.78 (0.61-1.60) ng/dl Urine Color Urine Appearance (Clear) Urine pH (4.5-7.5) Ur Specific [place] (1.000-1.030) Urine Protein (Negative) Urine Glucose (UA) (Negative) Urine Ketones (Negative) Urine Blood (Negative) Urine Nitrite (Negative) Urine Bilirubin (Negative) Urine Urobilinogen (Negative) Ur Leukocyte Esterase (Negative) Urine WBC (Auto) (0-5) /hpf Urine RBC (Auto) (0-4) /hpf U Hyaline Cast (Auto) (0-5) /lpf U Epithel Cells (Auto) (0-5) /lpf Urine Bacteria (Auto) (Negative) Adenovirus (PCR) Not Detected (NotDetected) B. pertussis DNA (PCR) Not Detected (NotDetected) B.parapertussis DNA PCR Not Detected (NotDetected) C. pneumoniae DNA (PCR) Not Detected (NotDetected) Coronavirus OC43 (PCR) Not Detected (NotDetected) Coronavirus HKU1 (PCR) Not Detected (NotDetected) Coronavirus 229E (PCR) Not Detected (NotDetected) SARS-CoV-2 (PCR) Not Detected (NotDetected) Coronavirus NL63 (PCR) Not Detected (NotDetected) Human Metapneumovir PCR Not Detected (NotDetected) Influenza Type A (PCR) Not Detected (NotDetected) Influenza Type B (PCR) Not Detected (NotDetected) M. pneumoniae (PCR) Not Detected (NotDetected) Parainfluenza 1 (PCR) Not Detected (NotDetected) Parainfluenza 2 (PCR) Not Detected (NotDetected) Parainfluenza 3 (PCR) Not Detected (NotDetected) Parainfluenza 4 (PCR) Not Detected (NotDetected) RSV (PCR) Not Detected (NotDetected) Entero/Rhino (PCR) Not Detected (NotDetected) 05/14/23 05/14/23 05/14/23 Range/Units 12:30 12:32 12:33 WBC (4.8-10.8) K/ul RBC (4.20-5.40) M/uL Hgb (12.0-16.0) g/dl POC Hgb (12.0-16.0) g/dl Hct (37.0-47.0) % POC Hct (37-47) % MCV (80.0-100.0) fL MCH (25.0-34.0) pg MCHC (32.0-36.0) g/dL RDW Std Deviation (36.4-46.3) fL RDW Coeff of Ragini (11.5-14.5) % Plt Count (130-400) K/uL MPV (9.4-12.4) fL Immature Gran % (Auto) % Neut % (Auto) % Lymph % (Auto) % Louisa % (Auto) % Eos % (Auto) % Baso % (Auto) % Neut # (Auto) (1.40-6.50) K/uL Lymph # (Auto) (1.20-3.40) K/uL Louisa # (Auto) (0.11-0.59) K/uL Eos # (Auto) (0.00-0.50) K/uL Baso # (Auto) (0.00-0.20) K/uL Immature Gran # (Auto) (0.01-0.20) K/uL Absolute Nucleated RBC (0.00-0.12) K/uL Nucleated RBC % (auto) % Dohle Bodies Anisocytosis PT (9.0-12.0) Seconds INR (0.9-1.1) APTT 30 (21-31) Seconds PTT Ratio 1.1 POC Sodium (135-144) mmol/L Sodium (136-145) mmol/L POC Potassium (3.3-5.0) mmol/L Potassium (3.5-5.1) mmol/L POC Chloride (101-112) mmol/L Chloride (98-107) mmol/L Carbon Dioxide (21-32) mmol/L POC Total CO2 (24-31) mmol/L Anion Gap (3-11) POC Anion Gap (16-25) mmol/L POC BUN (7-18) mg/dl BUN (6-23) mg/dl Creatinine (0.6-1.2) mg/dl POC Creatinine (0.6-1.3) mg/dl Est Cr Clr Drug Dosing ml/min Est GFR ( Amer) ml/min Est GFR (Non-Af Amer) ml/min BUN/Creatinine Ratio (10-20) Glucose (70-99(Fasting)) mg/dl POC Glucose (70-99) mg/dl POC Glucose (other) (70-99) mg/dl Lactate 1.4 (0.4-2.0) mmol/L Calcium (8.6-10.3) mg/dl POC Ioniz Calcium Tee (1.12-1.32) mmol/l Magnesium (1.7-2.4) mg/dl Total Bilirubin (0.2-1.0) mg/dl AST (13-39) U/L ALT (7-52) U/L Alkaline Phosphatase (34-104) U/L Troponin I High Sens (0-14) pg/ml Total Protein (6.0-8.3) gm/dl Albumin (3.4-5.0) gm/dl Globulin (2.5-4.0) gm/dl Albumin/Globulin Ratio (0.9-2) Lipase (11-82) U/L Procalcitonin 8.15 H (0-0.5) ng/ml TSH (0.300-4.500) uIu/ml Free T4 (0.61-1.60) ng/dl Urine Color Dark Yellow Urine Appearance Clear (Clear) Urine pH 5.0 (4.5-7.5) Ur Specific [place] 1.020 (1.000-1.030) Urine Protein Negative (Negative) Urine Glucose (UA) Trace H (Negative) Urine Ketones Trace H (Negative) Urine Blood Negative (Negative) Urine Nitrite Negative (Negative) Urine Bilirubin Negative (Negative) Urine Urobilinogen Negative (Negative) Ur Leukocyte Esterase 2+ H (Negative) Urine WBC (Auto) >30 H (0-5) /hpf Urine RBC (Auto) 0-4 (0-4) /hpf U Hyaline Cast (Auto) 1-5 (0-5) /lpf U Epithel Cells (Auto) 0-5 (0-5) /lpf Urine Bacteria (Auto) 2+ H (Negative) Adenovirus (PCR) (NotDetected) B. pertussis DNA (PCR) (NotDetected) B.parapertussis DNA PCR (NotDetected) C. pneumoniae DNA (PCR) (NotDetected) Coronavirus OC43 (PCR) (NotDetected) Coronavirus HKU1 (PCR) (NotDetected) Coronavirus 229E (PCR) (NotDetected) SARS-CoV-2 (PCR) (NotDetected) Coronavirus NL63 (PCR) (NotDetected) Human Metapneumovir PCR (NotDetected) Influenza Type A (PCR) (NotDetected) Influenza Type B (PCR) (NotDetected) M. pneumoniae (PCR) (NotDetected) Parainfluenza 1 (PCR) (NotDetected) Parainfluenza 2 (PCR) (NotDetected) Parainfluenza 3 (PCR) (NotDetected) Parainfluenza 4 (PCR) (NotDetected) RSV (PCR) (NotDetected) Entero/Rhino (PCR) (NotDetected) 05/14/23 05/14/23 Range/Units 13:30 13:47 WBC (4.8-10.8) K/ul RBC (4.20-5.40) M/uL Hgb (12.0-16.0) g/dl POC Hgb 7.1 L (12.0-16.0) g/dl Hct (37.0-47.0) % POC Hct 21 L (37-47) % MCV (80.0-100.0) fL MCH (25.0-34.0) pg MCHC (32.0-36.0) g/dL RDW Std Deviation (36.4-46.3) fL RDW Coeff of Ragini (11.5-14.5) % Plt Count (130-400) K/uL MPV (9.4-12.4) fL Immature Gran % (Auto) % Neut % (Auto) % Lymph % (Auto) % Louisa % (Auto) % Eos % (Auto) % Baso % (Auto) % Neut # (Auto) (1.40-6.50) K/uL Lymph # (Auto) (1.20-3.40) K/uL [place]a # (Auto) (0.11-0.59) K/uL Eos # (Auto) (0.00-0.50) K/uL Baso # (Auto) (0.00-0.20) K/uL Immature Gran # (Auto) (0.01-0.20) K/uL Absolute Nucleated RBC (0.00-0.12) K/uL Nucleated RBC % (auto) % Dohle Bodies Anisocytosis PT (9.0-12.0) Seconds INR (0.9-1.1) APTT (21-31) Seconds PTT Ratio POC Sodium 129 L (135-144) mmol/L Sodium (136-145) mmol/L POC Potassium 5.4 H (3.3-5.0) mmol/L Potassium (3.5-5.1) mmol/L POC Chloride 102 (101-112) mmol/L Chloride (98-107) mmol/L Carbon Dioxide (21-32) mmol/L POC Total CO2 18 L (24-31) mmol/L Anion Gap (3-11) POC Anion Gap 15.0 L (16-25) mmol/L POC BUN 103 H* (7-18) mg/dl BUN (6-23) mg/dl Creatinine (0.6-1.2) mg/dl POC Creatinine 2.8 H (0.6-1.3) mg/dl Est Cr Clr Drug Dosing ml/min Est GFR ( Amer) ml/min Est GFR (Non-Af Amer) ml/min BUN/Creatinine Ratio (10-20) Glucose (70-99(Fasting)) mg/dl POC Glucose 422 H* (70-99) mg/dl POC Glucose (other) 424 H* (70-99) mg/dl Lactate (0.4-2.0) mmol/L Calcium (8.6-10.3) mg/dl POC Ioniz Calcium Tee 1.17 (1.12-1.32) mmol/l Magnesium (1.7-2.4) mg/dl Total Bilirubin (0.2-1.0) mg/dl AST (13-39) U/L ALT (7-52) U/L Alkaline Phosphatase (34-104) U/L Troponin I High Sens (0-14) pg/ml Total Protein (6.0-8.3) gm/dl Albumin (3.4-5.0) gm/dl Globulin (2.5-4.0) gm/dl Albumin/Globulin Ratio (0.9-2) Lipase (11-82) U/L Procalcitonin (0-0.5) ng/ml TSH (0.300-4.500) uIu/ml Free T4 (0.61-1.60) ng/dl Urine Color Urine Appearance (Clear) Urine pH (4.5-7.5) Ur Specific [place] (1.000-1.030) Urine Protein (Negative) Urine Glucose (UA) (Negative) Urine Ketones (Negative) Urine Blood (Negative) Urine Nitrite (Negative) Urine Bilirubin (Negative) Urine Urobilinogen (Negative) Ur Leukocyte Esterase (Negative) Urine WBC (Auto) (0-5) /hpf Urine RBC (Auto) (0-4) /hpf U Hyaline Cast (Auto) (0-5) /lpf U Epithel Cells (Auto) (0-5) /lpf Urine Bacteria (Auto) (Negative) Adenovirus (PCR) (NotDetected) B. pertussis DNA (PCR) (NotDetected) B.parapertussis DNA PCR (NotDetected) C. pneumoniae DNA (PCR) (NotDetected) Coronavirus OC43 (PCR) (NotDetected) Coronavirus HKU1 (PCR) (NotDetected) Coronavirus 229E (PCR) (NotDetected) SARS-CoV-2 (PCR) (NotDetected) Coronavirus NL63 (PCR) (NotDetected) Human Metapneumovir PCR (NotDetected) Influenza Type A (PCR) (NotDetected) Influenza Type B (PCR) (NotDetected) M. pneumoniae (PCR) (NotDetected) Parainfluenza 1 (PCR) (NotDetected) Parainfluenza 2 (PCR) (NotDetected) Parainfluenza 3 (PCR) (NotDetected) Parainfluenza 4 (PCR) (NotDetected) RSV (PCR) (NotDetected) Entero/Rhino (PCR) (NotDetected) Administered Medications Sodium Chloride (Nss) 1,000 mls @ 125 mls/hr IV .Q8H SANJAY Stop: 06/13/23 10:14 Last Infusion: 05/14/23 13:25 Dose: Infused Documented By: Admin: 05/14/23 10:14 Dose: 125 mls/hr Documented By: AMS Discontinued Medications Acetaminophen (Ofirmev) 1,000 mg in 100 mls @ 400 mls/hr IV NOW STA Stop: 05/14/23 10:37 Last Infusion: 05/14/23 11:32 Dose: Infused Documented By: Admin: 05/14/23 11:17 Dose: 400 mls/hr Documented By: SILVANA Cefepime HCl (Maxipime) 2,000 mg in 20 mls @ 5 mls/min IV NOW STA; Protocol Stop: 05/14/23 10:26 Last Admin: 05/14/23 11:17 Dose: 5 mls/min Documented By: SILVANA Sodium Chloride (Nss) 1,000 mls @ 999 mls/hr IV .Q1H1M SANJAY Stop: 05/14/23 14:00 Last Infusion: 05/14/23 15:13 Dose: Infused Documented By: Admin: 05/14/23 13:45 Dose: 999 mls/hr Documented By: Infusion: 05/14/23 13:25 Dose: Infused Documented By: Admin: 05/14/23 12:25 Dose: 999 mls/hr Documented By: SILVANA Calcium Gluconate 1,000 mg/ (Sodium Chloride) 60 mls @ 240 mls/hr IV NOW ONE Stop: 05/14/23 13:44 Last Infusion: 05/14/23 15:13 Dose: Infused Documented By: Admin: 05/14/23 14:05 Dose: 240 mls/hr Documented By: EULOGIO Sodium Chloride (Nss) 1,000 mls @ 999 mls/hr IV .Q1H1M ONE Stop: 05/14/23 14:49 Last Infusion: 05/14/23 15:13 Dose: Infused Documented By: Admin: 05/14/23 14:08 Dose: 999 mls/hr Documented By: EULOGIO Insulin Human Regular (Novolin-R Insulin Per Unit Charge) 8 units IV NOW STA Stop: 05/14/23 11:20 Last Admin: 05/14/23 12:22 Dose: 8 units Documented By: SILVANA Co-signed By: EULOGIO Insulin Human Regular (Novolin-R Insulin Per Unit Charge) 5 units IV NOW STA Stop: 05/14/23 13:51 Last Admin: 05/14/23 14:01 Dose: 5 units Documented By: EULOGIO Co-signed By: [facility] Insulin Human Regular (Novolin-R Insulin Per Unit Charge) Confirm Administered Dose 5 units .ROUTE .STK-MED ONE Stop: 05/14/23 14:00 Last Admin: 05/14/23 14:15 Dose: Not Given Documented By: [facility] Imaging Data Radiologist's Impression: Chest X-Ray 05/14/23 10:02 SUPINE PORTABLE AP CHEST RADIOGRAPH CLINICAL HISTORY: hypoxia COMPARISON STUDY: Chest CT August 17, 2014. Chest radiograph December 22, 2022. FINDINGS: No pneumothorax or pleural effusion is identified on supine exam. Linear right perihilar opacity favors scarring. Allowing for supine technique, cardiomediastinal silhouette is stable. There is no evidence for pulmonary edema. IMPRESSION: No acute cardiopulmonary findings. ACT 112: Negative or not required by law. Electronically signed by: Bobby Mcclendon M.D. 05/14/2023 10:39 AM Hip/Pelvis X-Ray 05/14/23 10:02 XR hip 1V LT w pelvis CLINICAL HISTORY: Pain following fall. COMPARISON: Pelvis and left femur radiographs December 18, 2022. CT of the abdomen and pelvis December 22, 2022. FINDINGS: There acute mildly displaced angulated intertrochanteric fracture of the left femur. No acute fractures within the pelvis or right hip are identified. Pelvic calcifications favor phleboliths. Sacroiliac joints and symphysis pubis are intact. IMPRESSION: Acute mildly displaced angulated intertrochanteric fracture of the left femur. ACT 112: Negative or not required by law. Electronically signed by: Bobby Mcclendon M.D. 05/14/2023 10:40 AM Venous Doppler Study 05/14/23 10:02 LEFT LOWER EXTREMITY VENOUS DOPPLER CLINICAL HISTORY: Left lower extremity pain. Evaluate for deep venous thrombus. COMPARISON STUDY: No previous studies for comparison. TECHNIQUE: Sonography of the deep venous system of the left lower extremity was performed. Compression and augmentation were evaluated. FINDINGS: The left common femoral, superficial femoral and popliteal veins were compressible. Augmentation was normal. Flow was shown within the deep calf vessels. IMPRESSION: No evidence of deep venous thrombus within the left lower extremity. ACT 112: Negative or not required by law. Electronically signed by: Bobby Mcclendon M.D. 05/14/2023 11:21 AM Ankle X-Ray 05/14/23 12:29 XR ankle LT 2V CLINICAL HISTORY: ?Fxr, fall COMPARISON: Left ankle CT October 23, 2022. Left ankle radiographs December 18, 2022. FINDINGS: There are old, healed distal left tibial and fibular fractures. No acute fractures are identified. Osteopenia is noted. Severe tibiotalar joint space narrowing is present. There are posterior and plantar calcaneal spurs. Dorsal foot soft tissue swelling is noted. IMPRESSION: 1. No acute fracture or dislocation within the left ankle. 2. Old, healed distal left tibial and fibular fractures. 3. Severe tibiotalar joint osteoarthritis. ACT 112: Negative or not required by law. Electronically signed by: Bobby Mcclendon M.D. 05/14/2023 1:11 PM Discharge Plan Visit Data Chief Complaint: Illness Stated Complaint: BODY PAIN ED Provider: Tara Contreras Discharge Problem: Acute pain of left lower extremity, Hyperglycemia, Closed fracture of left hip, Hyperkalemia, Elevated troponin, JANICE (acute kidney injury), Hypoxia Forms Stand Alone Forms: [facility] Prescriptions Prescriptions: No Action ipratropium-albuterol 0.5 mg-3 mg(2.5 mg base)/3 mL solution for nebulization 3 ml INH Q8H PRN (Reason: sob) Qty: 180 3RF albuterol sulfate [ProAir HFA] 90 mcg/actuation HFA aerosol inhaler 2 inh INH Q4H PRN (Reason: shortness of breath or wheezing) Qty: 8.5 3RF Rx Instructions: 2 puffs inhalation q4h PRN; (DME) Wheeled Walker [facility] See Rx Instructions .Route Qty: 1 0RF Rx Instructions: wheeled walker with seat and brakes (DME) Contour Next Test Strips Strip See Rx Instructions .ROUTE .MEDSUPPLY Qty: 400 3RF Rx Instructions: As directed- Used to test blood sugar 4 times Daily amlodipine 5 mg tablet 5 mg PO QAM Qty: 90 3RF lisinopril 40 mg tablet 40 mg PO QAM Qty: 90 3RF Januvia 50 mg tablet 50 mg PO DAILY Qty: 30 5RF fluticasone propion-salmeterol [Advair Diskus] 250-50 mcg/dose blister with device 1 inh INH BID Qty: 60 5RF Rx Instructions: Brand Necessary (Advair) (DME) BD AutoShield Duo Pen Needle 30 gauge x 3/16" needle See Dose Instructions .ROUTE .MEDSUPPLY Qty: 100 6RF Rx Instructions: USE SQ TWICE DAILY WITH LANTUS (DME) lancets [[place] 1 Lancets] 33 gauge misc See Dose Instructions .ROUTE .MEDSUPPLY Qty: 100 5RF Rx Instructions: USE 4 TIMES DAILY omeprazole 20 mg capsule,delayed release(DR/EC) 20 mg PO QAM Qty: 90 1RF donepezil 10 mg tablet 10 mg PO DAILY Qty: 90 3RF Rx Instructions: Take in the morning. atorvastatin 40 mg tablet 40 mg PO HS (DME) pen needle, diabetic [BD Ultra-Fine Short Pen Needle] 31 gauge x 5/16" needle See Dose Instructions .ROUTE .MEDSUPPLY Qty: 30 Rx Instructions: USE DIRECTED DAILY WITH LANTUS acetaminophen 325 mg capsule 650 mg PO Q6H MDD 3g PRN (Reason: temp>101) ezetimibe 10 mg tablet 10 mg PO HS Centrum Silver Women 8 mg iron-400 mcg-50 mcg tablet 1 tab PO DAILY Artificial Tears (PF) Dropperette 1 drp OPB QID levothyroxine 88 mcg tablet 88 mcg PO DAILY cholecalciferol (vitamin D3) [Vitamin D3] 25 mcg (1,000 unit) Tablet 25 mcg PO DAILY acetaminophen [Tylenol] 325 mg Tablet 650 mg PO Q12 ondansetron HCl 4 mg tablet 4 mg PO Q6 PRN (Reason: Nausea And Vomiting) tramadol 50 mg tablet 50 mg PO Q8 PRN (Reason: Pain) [place]-3 Fish Oil 300-1,000 mg Capsule 1 cap PO DAILY aspirin 81 mg Tablet,Delayed Release (Dr/Ec) 81 mg PO QAM Qty: 60 0RF sertraline 100 mg tablet 100 mg PO DAILY Qty: 60 5RF cholecalciferol (vitamin D3) [Vitamin D3] 25 mcg (1,000 unit) Tablet 25 mcg PO DAILY diclofenac sodium 1 % Gel 1 ea TOPICAL TID Rx Instructions: apply topically to left hip ammonium lactate 12 % Cream 1 applic TOPICAL BID Rx Instructions: apply to bilateral feet every day and evening shift for 6 weeks..end date 06/25/2023 Referrals Referrals: Jay Mckeon [Primary Care Provider] -
--- NOTE | 2023-05-14 10:41 | XRay Report ---
SUPINE PORTABLE AP CHEST RADIOGRAPH CLINICAL HISTORY: hypoxia COMPARISON STUDY: Chest CT August 17, 2014. Chest radiograph December 22, 2022. FINDINGS: No pneumothorax or pleural effusion is identified on supine exam. Linear right perihilar op acity favors scarring. Allowing for supine technique, cardiomediastinal silhouette is stable. There i s no evidence for pulmonary edema. IMPRESSION: No acute cardiopulmonary findings. ACT 112: Negative or not required by law. Electronically signed by: Bobby Mcclendon M.D. 05/14/2023 10:39 AM
--- NOTE | 2023-05-14 10:42 | XRay Report ---
XR hip 1V LT w pelvis CLINICAL HISTORY: Pain following fall. COMPARISON: Pelvis and left femur radiographs December 18, 2022. CT of the abdomen and pelvis December 22, 2022. FINDINGS: There acute mildly displaced angulated intertrochanteric fracture of the left femur. No ac [place] fractures within the pelvis or right hip are identified. Pelvic calcifications favor phleboliths. Sacroiliac joints and symphysis pubis are intact. IMPRESSION: Acute mildly displaced angulated intertrochanteric fracture of the left femur. ACT 112: Negative or not required by law. Electronically signed by: Bobby Mcclendon M.D. 05/14/2023 10:40 AM
[2023-05-14 11:10] LABS: INR 1.1 (0.9-1.1); Prothrombin Time 11.7 Seconds (9.0-12.0)
[2023-05-14 11:14] LABS: Adenovirus PCR Not Detected (NotDetected); Bordetella parapertussis PCR Not Detected (NotDetected); Bordetella pertussis PCR Not Detected (NotDetected); Chlamydia pneumoniae PCR Not Detected (NotDetected); Coronavirus 229E PCR Not Detected (NotDetected); Coronavirus CoV-2 (COVID19)PCR Not Detected (NotDetected); Coronavirus HKU1 PCR Not Detected (NotDetected); Coronavirus NL63 PCR Not Detected (NotDetected); Coronavirus OC43PCR Not Detected (NotDetected); Human Metapneumovirus PCR Not Detected (NotDetected); Influenza A PCR Not Detected (NotDetected); Influenza B PCR Not Detected (NotDetected); Mycoplasma pneumoniae PCR Not Detected (NotDetected); Parainfluenza Virus 1 PCR Not Detected (NotDetected); Parainfluenza Virus 2 PCR Not Detected (NotDetected); Parainfluenza Virus 3 PCR Not Detected (NotDetected); Parainfluenza Virus 4 PCR Not Detected (NotDetected); Respiratory Syncytial VirusPCR Not Detected (NotDetected); Rhinovirus/Enterovirus PCR Not Detected (NotDetected)
[2023-05-14] MEDS: ACETAMINOPHEN 1,000 MG/100 ML VIAL IV STA (11:17)
[2023-05-14] MEDS: CEFEPIME 2,000 MG/20 ML VIAL IV STA (11:17)
[2023-05-14 11:20] LABS: Albumin Globulin Ratio 0.7 (0.9-2); Albumin Level 2.6 gm/dl (3.4-5.0); BUN Creatinine Ratio 39.7 (10-20); Bilirubin,Total 0.4 mg/dl (0.2-1.0); Creatinine Clr Calc Pharmacy 13.3 ml/min; Est GFR (African American) 17.3 ml/min; Est GFR (Non-African American) 14.9 ml/min; Globulin 3.7 gm/dl (2.5-4.0); Magnesium 2.2 mg/dl (1.7-2.4); Potassium 6.2 mmol/L (3.5-5.1); Thyroid Stimulating Hormone 0.14 uIu/ml (0.300-4.500); Total Protein 6.3 gm/dl (6.0-8.3); Troponin I High Sensitivity 59.6 pg/ml (0-14)
--- NOTE | 2023-05-14 11:22 | Ultrasound Report ---
LEFT LOWER EXTREMITY VENOUS DOPPLER CLINICAL HISTORY: Left lower extremity pain. Evaluate for deep venous thrombus. COMPARISON STUDY: No previous studies for comparison. TECHNIQUE: Sonography of the deep venous system of the left lower extremity was performed. Compressi on and augmentation were evaluated. FINDINGS: The left common femoral, superficial femoral and popliteal veins were compressible. Augmen tation was normal. Flow was shown within the deep calf vessels. IMPRESSION: No evidence of deep venous thrombus within the left lower extremity. ACT 112: Negative or not required by law. Electronically signed by: Bobby Mcclendon M.D. 05/14/2023 11:21 AM
[2023-05-14 11:23] LABS: Anisocytosis Present; Basophils # (auto) 0.03 K/uL (0.00-0.20); Basophils % (auto) 0.1 %; Dohle Bodies 1+; Hematocrit (blood only) 28.3 % (37.0-47.0); Hemoglobin 9.4 g/dl (12.0-16.0); Immature Granulocytes # (auto) 0.56 K/uL (0.01-0.20); Lymphocytes # (auto) 0.85 K/uL (1.20-3.40); Mean Corpuscular Hemoglobin 31.6 pg (25.0-34.0); Mean Corpuscular Hgb Conc 33.2 g/dL (32.0-36.0); Mean Corpuscular Volume 95.3 fL (80.0-100.0); Mean Platelet Volume 11.5 fL (9.4-12.4); Monocytes # (auto) 0.72 K/uL (0.11-0.59); Monocytes % (auto) 2.5 %; Neutrophils # (auto) 26.22 K/uL (1.40-6.50); Neutrophils % (auto) 92.4 %; Nucleated RBC # (auto) 0.06 K/uL (0.00-0.12); Nucleated RBC % (auto) 0.2 %; Platelet Count 310 K/uL (130-400); RDW Standard Deviation 55.9 fL (36.4-46.3); Red Blood Count 2.97 M/uL (4.20-5.40); White Blood Count 28.38 K/ul (4.8-10.8)
--- NOTE | 2023-05-14 11:55 | History & Physical Report ---
Date of Service May 14, 2023 Assessment & Plan (1) JANICE (acute kidney injury): Plan: JANICE, hyperkalemia With severe volume contraction, and HHS with history of type II DM S/p 3 L of saline resuscitation and 2 IV doses of insulin, hyperkalemia rapidly improving transition to LR with insulin drip. Baseline around 1.5, increased at 2.9. Now downtrending 2.44 on reassessment. (2) Hyperkalemia: Plan: With severe volume contraction and JANICE. Improved and near normalized with fluids. Received 2 doses of IV insulin and calcium gluconate with volume expansion as initially Continue repletion per [facility] protocol (3) DM type 2 (diabetes mellitus, type 2): Plan: [facility] Insulin drip [facility] protocol Fluids as noted Potassium rapidly downtrending,6.7, 6.2, now 5.3. Fluid switched from saline to LR to minimize metabolic acidosis. Once potassium is less than 5.1 May add supplemental 20 mEq to LR. If potassium trends can switch back to an excess at that time. Add D5 to fluids once BSG in goal range VBG every 4 hours Initially with increased anion gap, decreased bicarb, VBG 7.25. Gap normalized following fluids, [facility] protocol continued (4) Dyspnea: Plan: Dyspnea Patient initially with severe dyspnea and labored breathing which developed after being in bed and with a fracture likely around 5 days earlier. Concerning for PE however CTA limited by renal function and D-dimer to be positive regardless in the setting of an acute fracture. Patient was volume resuscitated, hydrated with an attempt to maximize renal function before any contrasted studies to be obtained. Also reviewed with pulmonology and radiology. Patient with significant underlying metabolic acidosis and pain, as her metabolic acidosis gradually improved and she was resuscitated subjective shortness of breath greatly improved and had minimal oxygen requirements. CTA PE protocol deferred. (5) Closed intertrochanteric fracture of left femur: Plan: Hip fracture Likely occurred 8 days ago, consulted. Patient will need medical stabilization prior to attempted repair CT demonstrate edema and hemorrhage associated with left hip fracture, soft tissue gas most likely due to hemorrhage. Orthopedics consulted (6) Anemia: Plan: Acute anemia With recent hip fracture Hemoglobin initially approximately 9, post fluid resuscitation 7.1 with elevated cardiac biomarkers. 1 unit ordered for transfusion with 3 units on hold With a fracture as noted and associated edema and hemorrhage. CTA/P with no evidence of retroperitoneal hematoma Clinically improved on reassessment, hemoglobin trended (7) Leukocytosis: Plan: Leukocytosis, febrile on admission DDx includes developing pneumonia, UTI. Lower extremity with fracture but no overlying warmth/erythema or crepitus Patient covered empirically with cefepime on admission. MRSA nare positive, patient had adjunct vancomycin added. Patient has exceeded 30 cc/kg of recommended sepsis protocol fluids. Additional fluids per assessment and HHS protocol, patient also receiving 1 unit of red blood cells Tylenol IV, trend fever curve Plan DVT prophylaxis: Pharmacal prophylaxis contraindicated in setting of anemia and fracture, SCDs as tolerated Diet: N.p.o. Disposition: ICU CODE STATUS: DNR/DNI POLST is on file History of Present Illness Primary Care Provider: Banner Meri is a 77-year-old female with a past medical history of CKD, weakness, parkinsonism, falls, mild dementia who is a [facility] resident who presents w ith hip pain, JANICE, and ill clinical appearance. On EMS arrival to facility patient was borderline hypoxic and hyperglycemic. Patient is seen with her family at bedside to give collateral, Meri is tearful and a somewhat limited historian but is able to answer most questions appropriately despite not being oriented to year. Meri and family report that she had a fall 8 days ago, and actually had 3 falls in the same day. Family notes that they think this may have been because she slipped on talcum powder. She had a left ankle x-ray as outpatient which was reportedly normal, we do not have a copy of this at time of admission, but which was going to be repeated this week. She had not had imaging of her hip to their knowledge. She reports she had some pain but was able to be ambulated to a wheelchair until Wednesday, 2 days ago when she had severe progressive worsening pain in her left hip and entire left leg which now hurts to the touch all over. SHe is very tearful. She reports since Wednesday she has also had shortness of breath and feels like she has a hard time catching her breath regardless of position or activity. She is not sure if her leg is more swollen or not. Denies numbness/tingling in the legs, endorses constant aching pain through her hips bilaterally and L leg. NO saddle anesthesia. She has had no history of blood clots or bleeding problems in the past. She notes that she has not been eating or drinking very much at all in the last few months since her boyfriend in January and hydration has been a challenge at baseline, this has also been much worse in the last week where she has been eating and drinking almost nothing. Subcutaneous fluids were attempted as outpatient to supplement. She denies any history of heart disease or strokes, denies history of stents. Reports she is on aspirin preventatively. Denies history of tobacco abuse or COPD. Denies history of alcohol use. Endorses history of asthma on inhalers with no recent wheezing, but does endorse shortness of breath. She is not sure if she took medicines or not this morning. She has not been out of bed in the last 2 days. NO history of heart failure no history of heart problems per family Medical History: Reviewed Medications: Reviewed Surgical History: Reviewed Family history: Reviewed Allergies: Reviewed Social History: Denies tobacco etoh Code Status: DNR/DNI, advanced directive on file. Allergies Allergy/AdvReac Type Severity Reaction Status Date / Time No Known Drug Allergies Allergy Unknown Verified 12/18/22 02:05 Home Medications Medication Instructions Recorded Confirmed Type pen needle, diabetic 31 gauge x #30 ea 10/03/18 12/04/22 History 5/16" (BD Ultra-Fine Short Pen Needle) albuterol sulfate 90 mcg/actuation 2 inh inhalation Q4H PRN shortness 12/24/20 05/14/23 Rx aerosol inhaler (ProAir HFA) of breath or wheezing #8.5 grams Wheeled Walker #1 ea 01/10/21 05/14/23 Rx blood sugar diagnostic (Contour #400 ea 03/10/21 12/04/22 Rx Next Test Strips) amlodipine 5 mg tablet 5 mg PO QAM #90 tabs 03/19/21 05/14/23 Rx sitagliptin phosphate 50 mg tablet 50 mg PO DAILY #30 tabs 08/29/21 05/14/23 Rx (Januvia) pen needle,diabetic dual safty 30 #100 ea 11/13/21 12/04/22 Rx gauge x 3/16" (BD AutoShield Duo Pen Needle) lancets 33 gauge ([place] 1 #100 ea 12/16/21 12/04/22 Rx Lancets) donepezil 10 mg tablet 10 mg PO DAILY #90 tabs 12/18/21 05/14/23 Rx omeprazole 20 mg capsule,delayed 20 mg PO QAM #90 caps 01/14/22 05/14/23 Rx release atorvastatin 40 mg tablet 40 mg PO HS 06/16/22 05/14/23 History acetaminophen 325 mg capsule 650 mg PO Q6H PRN temp>101 12/18/22 05/14/23 History acetaminophen 325 mg tablet 650 mg PO Q12 muscle weakness 12/18/22 05/14/23 History (Tylenol) dextran 70-hypromellose eye drops 1 drp OPB QID 12/18/22 05/14/23 History in a dropperette (Artificial Tears (PF) drops in a dropperette) ezetimibe 10 mg tablet 10 mg PO HS 12/18/22 05/14/23 History levothyroxine 88 mcg tablet 88 mcg PO DAILY 12/18/22 05/14/23 History hgsaqbzy-ruyf-qdav 8 mg-folic 400 1 tab PO DAILY 12/18/22 05/14/23 History mcg-K 50 mcg-lutein 300 mcg tablet (Centrum Silver Women) omega-3s 300 fp-rso-azn-other 1 cap PO DAILY 12/18/22 05/14/23 History udvos7d-yrlo oil 1,000 mg capsule ([place]-3 Fish Oil) ondansetron HCl 4 mg tablet 4 mg PO Q6 PRN Nausea And Vomiting 12/18/22 05/14/23 History tramadol 50 mg tablet 50 mg PO Q8 PRN Pain and swelling 12/18/22 05/14/23 History aspirin 81 mg tablet,delayed 81 mg PO QAM #60 tabs 12/26/22 05/14/23 Rx release acetaminophen 325 mg tablet 650 mg PO Q12 PRN Pain 05/14/23 05/14/23 History ammonium lactate 12 % topical cream 1 applic topical BID 05/14/23 05/14/23 History cholecalciferol (vitamin D3) 25 25 mcg PO DAILY 05/14/23 05/14/23 History mcg (1,000 unit) tablet (Vitamin D3) diclofenac sodium 1 % topical gel 1 ea topical TID 05/14/23 05/14/23 History fluticasone 100 mcg-salmeterol 50 1 inh inhalation Q12H 05/14/23 05/14/23 History mcg/dose blistr powdr for inhalation (Advair Diskus) insulin glargine 100 unit/mL 20 unit subcut HS 05/14/23 05/14/23 History subcutaneous solution (Lantus U-100 Insulin) ipratropium 0.5 mg-albuterol 3 mg 3 ml inhalation .EVERY 6 HOURS PRN 05/14/23 05/14/23 History (2.5 mg base)/3 mL nebulization Shortness Of Breath Or Wheezing soln ipratropium 0.5 mg-albuterol 3 mg 3 ml inhalation Q8H PRN Shortness 05/14/23 05/14/23 History (2.5 mg base)/3 mL nebulization Of Breath Or Wheezing soln lisinopril 40 mg tablet 20 mg PO QAM 05/14/23 05/14/23 History mirtazapine 7.5 mg tablet 7.5 mg PO HS 05/14/23 05/14/23 History polyethylene glycol 3350 17 17 g PO DAILY 05/14/23 05/14/23 History gram/dose oral powder (Miralax) primidone 50 mg tablet 50 mg PO DAILY 05/14/23 05/14/23 History sertraline 100 mg tablet 150 mg PO DAILY 05/14/23 05/14/23 History Past Med/Surg History Medical History Stage 3b chronic kidney disease Acute hyponatremia Hypertension Anemia Back pain Benign colonic polyp DM type 2 (diabetes mellitus, type 2) GERD without esophagitis History of aspiration pneumonia History of fall Hyperlipidemia Hypothyroidism Muscle weakness Venous insufficiency Mental retardation Bronchitis COPD exacerbation Asthma Surgical History Recent surgical procedure on lower extremity left leg and ankle surgery History of foot surgery History of section History of oral surgery History of cataract surgery Family History Mother Diabetes type 2 Cardiac murmur Hypertension Asthma Father Bone cancer Social History Smoking Status: Never smoker Second Hand Exposure: No; Do You Dip or Chew Tobacco: No; Hx Alcohol Use: No Hx Substance Use: No Preferred Language: Armenian Communication Ability: Impaired Visual Impairment: No Limitations Hearing Ability: Normal [employer] Manager Required: No Beliefs That Will Affect Care: None marital status: Single Current Living Situation: Assisted Current Living Situation Comment: Mike current occupational status: disabled Feels Safe at Home: Yes Safety Concerns: Feels Safe At This Time Childhood Exposure to Second-Hand Smoke: No Seatbelt Use: always Assistive Devices: Denture - Upper, Glasses and Walker Physical Exam Physical Exam: General: Alert and oriented to name and place but appears uncomfortable, tearful, and is intermittently confused. generally poor historian HEENT: Atraumatic, normocephalic. PERLAA Pulm: Diminished, otherwise clear without wheezes/rales symmetrical chest rise. No increased work of breathing. No respiratory distress. Cardiac: RRR, +sm. Radial pulses intact and symmetrical. Abdominal: Diffusely tender to palpation, softly distended Ext: Left lower extremity tender to palpation diffusely, externally rotated, shortened. No crepitus, no overlying erythema/warmth . ulcers are intact Doppler and brisk on both PT and DP assessment. Wiggles toes on command, endorses sensation intact in the feet bilaterally Results & Data Results & Data Vital Signs (Past 12 Hours) Vital Signs Temp Pulse Pulse Resp BP BP Pulse Ox 05/14/23 11:20 85 17 99/50 L 88 L 05/14/23 10:21 86 05/14/23 09:58 38 C H 88 18 99/62 L 94 05/14/23 09:58 38 C H 88 18 99/62 L 94 O2 Del Method 05/14/23 11:20 Room Air 05/14/23 10:21 05/14/23 09:58 Room Air 05/14/23 09:58 Room Air PG Care Time/CCT Total # of Minutes Spent Total Time Spent with Patient: Total time spent is greater than 50% in coordination of care (as documented) at patient's floor/unit and/or counseling patient: Coding Level of Care Code 95485 INT INP/OBS CARE 3/75MIN Diagnoses JANICE (acute kidney injury) N17.9 Hyperkalemia E87.5 DM type 2 (diabetes mellitus, type 2) E11.9 Dyspnea R06.00 Closed displaced intertrochanteric fracture of left femur, initial encounter S72.142A Encounter type: initial encounter Fracture alignment: displaced Anemia D64.9 Leukocytosis D72.829 (5) Closed intertrochanteric fracture of left femur Encounter type: initial encounter Fracture alignment: displaced Qualified Code(s): S72.142A - Displaced intertrochanteric fracture of left femur, initial encounter for closed fracture
[2023-05-14] MEDS: NovoLIN-R INSULIN PER UNIT CHARGE IV STA ×2 (12:22→14:01)
[2023-05-14 13:12] LABS: T4 Free Thyroxine 0.78 ng/dl (0.61-1.60)
--- NOTE | 2023-05-14 13:12 | XRay Report ---
XR ankle LT 2V CLINICAL HISTORY: ?Fxr, fall COMPARISON: Left ankle CT October 23, 2022. Left ankle radiographs December 18, 2022. FINDINGS: There are old, healed distal left tibial and fibular fractures. No acute fractures are allie ntified. Osteopenia is noted. Severe tibiotalar joint space narrowing is present. There are posterior and plantar calcaneal spurs. Dorsal foot soft tissue swelling is noted. IMPRESSION: 1. No acute fracture or dislocation within the left ankle. 2. Old, healed distal left tibial and fibular fractures. 3. Severe tibiotalar joint osteoarthritis. ACT 112: Negative or not required by law. Electronically signed by: Bobby Mcclendon M.D. 05/14/2023 1:11 PM
[2023-05-14] MEDS ORDERED: STAT IV/IM STA (13:18)
[2023-05-14 13:19] LABS: Partial Thromboplastin Ratio 1.1; Partial Thromboplastin Time 30 Seconds (21-31)
[2023-05-14 13:31] LABS: Appearance Urine Clear (Clear); Bacteria Urine Automated 2+ (Negative); Bilirubin Urine Negative (Negative); Blood Urine Negative (Negative); Color Urine Dark Yellow; Epithelial Cell Urine Auto 0-5 /lpf (0-5); Glucose Urine UA Trace (Negative); Ketones Urine Trace (Negative); Leukocyte Esterase Urine 2+ (Negative); Nitrite Urine Negative (Negative); Protein Urine Negative (Negative); Urobilinogen Urine Negative (Negative); WBC Urine Automated >30 /hpf (0-5)
[2023-05-14 13:55] LABS: RBC Urine Automated 0-4 /hpf (0-4)
[2023-05-14 14:00] LABS: iSTAT Creatinine 2.8 mg/dl (0.6-1.3); iSTAT Hemoglobin 7.1 g/dl (12.0-16.0); iSTAT Ionized Calcium 1.17 mmol/l (1.12-1.32); iSTAT Potassium 5.4 mmol/L (3.3-5.0)
[2023-05-14] MEDS: CALCIUM GLUCONATE 10% 1,000 MG in SODIUM CHLOR 0.9% MINI-B 50 ML IV ONE (14:05)
[2023-05-14] MEDS: SODIUM CHLORIDE 0.9% 1,000 ML IV ONE (14:08)
[2023-05-14] MEDS: NovoLIN-R INSULIN PER UNIT CHARGE ONE (14:15)
[2023-05-14] MEDS ORDERED: SODIUM CHLORIDE 0.9% 250 ML IV PRN (15:05)
[2023-05-14] MEDS ORDERED: PHARMACY GLYCEMIC MGMT CONSULT PRN (15:28)
[2023-05-14] MEDS ORDERED: STAT IV Infusion **Titration per Protocol STA (15:28)
[2023-05-14] MEDS ORDERED: PENDING D5 1/2NS+20mEq KCL IVF SCH (15:30)
--- NOTE | 2023-05-14 15:46 | Critical Care Consultation ---
Date of Consultation May 14, 2023 Assessment & Plan (1) Stage 3b chronic kidney disease: (2) Acute hyponatremia: (3) Closed fracture of left hip: (4) Elevated troponin: (5) Hypothyroidism: (6) Hyperlipidemia: (7) Hypoxia: (8) Closed intertrochanteric fracture of left femur: (9) Metabolic encephalopathy: (10) High anion gap metabolic acidosis: (11) Acute kidney injury superimposed on CKD: Plan Reason Critically Ill: 77-year-old female being admitted to the hospital for fall, Past medical history: CKD, Parkinson's, mild dementia. In the ED patient was found to be in DKA, JANICE as well as anemic, sent to the ICU for further management Neuro - [facility] ICU: Unable to assess --Metabolic encephalopathy Multifactorial Underlying DKA with possible infection/sepsis TSH low but free T4 within normal limit Corrected sodium 133 Calcium within normal limit --History of dementia On donepezil --Anxiety/depression On sertraline at home Cardiac - -- Hypotension Responded to fluids Home blood pressure medication on hold Continue to monitor if the patient's blood pressure trends down then start vasopressors to keep MAP greater than 65 --Elevated troponins Likely type II AR EKG 05/14/2023, 10 AM: Normal sinus rhythm, normal axis, poor R wave progression on the lateral leads, less than [address] elevation in lead III, no T wave changes 2D echo 12/19/2022: EF 55-60%, grade 1 diastolic dysfunction, RV normal in size and function Respiratory - -- Shortness of breath Likely in response to metabolic acidosis Saturating 95% on 2 L nasal cannula Chest x-ray shows atelectasis on the right side. No clear lung infiltrate Doppler bilateral lower extremity negative for DVT Probability of pulmonary emboli is low GI - -- Transaminitis Likely secondary to fall Continue to trend Follow-up CPK RENAL/LYTES - -- HAGMA Delta-delta: Less than 1 Likely sec to gap plus nongap, gap likely from DKA, for nongap follow-up urine lites Continue with insulin drip until anion gap closes Decreasing blood glucose no more than 100 in an hour Replace potassium IV when potassium level between 3.3-5.3 BMP every 4 hours Continue with IV fluids -- JANICE Follow-up urine lites Monitor BUN/creatinine Avoid nephrotoxic medications Strict ins and outs -- Hyperkalemia Likely from metabolic acidosis Repeat potassium is 5.4 No T wave changes on the EKG --Hyponatremia Corrected sodium is 133 Continue to monitor - -- Continue with Landeros catheter ENDO - -- Diabetes type 2 Continue with ICU hypoglycemia protocol --Hypothyroidism TSH 0.14 with Free T4 within normal limit, continue levothyroxine HEME - -- Acute on chronic anemia S/p 1 unit PRBC on 05/14/2023 ID - -- Leukocytosis Could be secondary to DKA Urine is dirty as well Procalcitonin 8.15 Continue with broad-spectrum antibiotics till we have blood culture and urine culture back Musculoskeletal - -- Acute mildly displaced intertrochanteric fracture of the left femur Orthopedic on board --DNR/DNI Okay to use vasopressors --Prophylaxis VTE: IPC GI: Pantoprazole Lines: Peripheral Diet: N.p.o. Plan: Strict in and out Continue with insulin drip until anion gap closes Decreasing blood glucose no more than 100 in an hour Replace potassium IV when potassium level between 3.3-5.3 BMP every 4 hours Continue with IV fluids Follow-up random cortisol. Continue to monitor potassium Case was discussed with primary team as well as RN I have personally spent 58 minutes of critical care time in the direct management of this patient. This is a life/limb threatening event. This includes time spent evaluating patient, direct bedside care, chart review, placing orders, interpretation of diagnostic studies, discussion with consultants, patient, and family members, as well as other required patient management activities. This time is exclusive of all separately billable procedures, and teaching time and separate from and in addition to any other critical care service time. History of Present Illness History of Present Illness 77-year-old female being admitted to the hospital for fall Past medical history: CKD, Parkinson's, mild dementia In the ED patient was found to be in DKA, JANICE as well as anemic, sent to the ICU for further management At the time of examination patient was saturating 94% on 2 L nasal cannula. She was not any respiratory distress Respiratory was in the high teens. Heart rate in the low 80s to high 70s. Unfortunately she was not not communicating a lot. Left leg was internally rotated and shortened. Patient had some kind of axis in the anterior abdominal MAP was 65 with systolic in the low 90s. Patient did not have any bruising on the abdomen, flank or the leg. She did grimace very easily when I auscultated the left side of her chest. No clear rib fractures appreciated on the chest x-ray Please make note history was obtained from previous chart as well as talking with primary team Allergies Allergy/AdvReac Type Severity Reaction Status Date / Time No Known Drug Allergies Allergy Unknown Verified 12/18/22 02:05 Home Medications Medication Instructions Recorded Confirmed Type pen needle, diabetic 31 gauge x #30 ea 10/03/18 12/04/22 History 5/16" (BD Ultra-Fine Short Pen Needle) albuterol sulfate 90 mcg/actuation 2 inh inhalation Q4H PRN shortness 12/24/20 05/14/23 Rx aerosol inhaler (ProAir HFA) of breath or wheezing #8.5 grams Wheeled Walker #1 ea 01/10/21 05/14/23 Rx blood sugar diagnostic (Contour #400 ea 03/10/21 12/04/22 Rx Next Test Strips) amlodipine 5 mg tablet 5 mg PO QAM #90 tabs 03/19/21 05/14/23 Rx sitagliptin phosphate 50 mg tablet 50 mg PO DAILY #30 tabs 08/29/21 05/14/23 Rx (Januvia) pen needle,diabetic dual safty 30 #100 ea 11/13/21 12/04/22 Rx gauge x 3/16" (BD AutoShield Duo Pen Needle) lancets 33 gauge ([place] 1 #100 ea 12/16/21 12/04/22 Rx Lancets) donepezil 10 mg tablet 10 mg PO DAILY #90 tabs 12/18/21 05/14/23 Rx omeprazole 20 mg capsule,delayed 20 mg PO QAM #90 caps 01/14/22 05/14/23 Rx release atorvastatin 40 mg tablet 40 mg PO HS 06/16/22 05/14/23 History acetaminophen 325 mg capsule 650 mg PO Q6H PRN temp>101 12/18/22 05/14/23 History acetaminophen 325 mg tablet 650 mg PO Q12 muscle weakness 12/18/22 05/14/23 History (Tylenol) dextran 70-hypromellose eye drops 1 drp OPB QID 12/18/22 05/14/23 History in a dropperette (Artificial Tears (PF) drops in a dropperette) ezetimibe 10 mg tablet 10 mg PO HS 12/18/22 05/14/23 History levothyroxine 88 mcg tablet 88 mcg PO DAILY 12/18/22 05/14/23 History eplkrzwl-hejt-jpjs 8 mg-folic 400 1 tab PO DAILY 12/18/22 05/14/23 History mcg-K 50 mcg-lutein 300 mcg tablet (Centrum Silver Women) omega-3s 300 fn-dez-iah-other 1 cap PO DAILY 12/18/22 05/14/23 History dxinb9o-gfew oil 1,000 mg capsule ([place]-3 Fish Oil) ondansetron HCl 4 mg tablet 4 mg PO Q6 PRN Nausea And Vomiting 12/18/22 05/14/23 History tramadol 50 mg tablet 50 mg PO Q8 PRN Pain and swelling 12/18/22 05/14/23 History aspirin 81 mg tablet,delayed 81 mg PO QAM #60 tabs 12/26/22 05/14/23 Rx release acetaminophen 325 mg tablet 650 mg PO Q12 PRN Pain 05/14/23 05/14/23 History ammonium lactate 12 % topical cream 1 applic topical BID 05/14/23 05/14/23 History cholecalciferol (vitamin D3) 25 25 mcg PO DAILY 05/14/23 05/14/23 History mcg (1,000 unit) tablet (Vitamin D3) diclofenac sodium 1 % topical gel 1 ea topical TID 05/14/23 05/14/23 History fluticasone 100 mcg-salmeterol 50 1 inh inhalation Q12H 05/14/23 05/14/23 History mcg/dose blistr powdr for inhalation (Advair Diskus) insulin glargine 100 unit/mL 20 unit subcut HS 05/14/23 05/14/23 History subcutaneous solution (Lantus U-100 Insulin) ipratropium 0.5 mg-albuterol 3 mg 3 ml inhalation .EVERY 6 HOURS PRN 05/14/23 05/14/23 History (2.5 mg base)/3 mL nebulization Shortness Of Breath Or Wheezing soln ipratropium 0.5 mg-albuterol 3 mg 3 ml inhalation Q8H PRN Shortness 05/14/23 05/14/23 History (2.5 mg base)/3 mL nebulization Of Breath Or Wheezing soln lisinopril 40 mg tablet 20 mg PO QAM 05/14/23 05/14/23 History mirtazapine 7.5 mg tablet 7.5 mg PO HS 05/14/23 05/14/23 History polyethylene glycol 3350 17 17 g PO DAILY 05/14/23 05/14/23 History gram/dose oral powder (Miralax) primidone 50 mg tablet 50 mg PO DAILY 05/14/23 05/14/23 History sertraline 100 mg tablet 150 mg PO DAILY 05/14/23 05/14/23 History Patient History Medical History Stage 3b chronic kidney disease Acute hyponatremia Hypertension Anemia Back pain Benign colonic polyp DM type 2 (diabetes mellitus, type 2) GERD without esophagitis History of aspiration pneumonia History of fall Hyperlipidemia Hypothyroidism Muscle weakness Venous insufficiency Mental retardation Bronchitis COPD exacerbation Asthma Surgical History Recent surgical procedure on lower extremity left leg and ankle surgery History of foot surgery History of section History of oral surgery History of cataract surgery Family History Mother Diabetes type 2 Cardiac murmur Hypertension Asthma Father Bone cancer Social History Smoking Status: Never smoker Second Hand Exposure: No; Do You Dip or Chew Tobacco: No; Hx Alcohol Use: No Hx Substance Use: No Preferred Language: Yakut Communication Ability: Impaired Visual Impairment: No Limitations Hearing Ability: Normal Flotation Tender Required: No Beliefs That Will Affect Care: None marital status: Single Current Living Situation: Longterm Current Living Situation Comment: [facility] current occupational status: disabled Feels Safe at Home: Yes Safety Concerns: Feels Safe At This Time Childhood Exposure to Second-Hand Smoke: No Seatbelt Use: always Assistive Devices: Denture - Upper, Glasses and Walker Review of Systems 2 Review of Systems: All systems reviewed & are unremarkable except as noted in HPI & below Physical Exam 2 Physical Exam: Constitutional: No acute distress HEENT: EOMI, PERRLA Respiratory system: Decreased air entry bilaterally, no wheeze, no rhonchi, positive crackles bilaterally, R>L CVS: S1-S2 positive, no murmurs or gallops Abdomen: Soft, nontender, nondistended, positive bowel sounds x4, access site on the anterior abdomen Extremities: +1 pulses bilaterally radialis/ dorsalis pedis, no cyanosis, no edema, Left leg internally rotated and shortened Neuro: Somnolent, Grimaces to pain Psych: Unable to access G/U: +ve landeros Skin: no rashes, warm and dry Lymphatic: no cervical or axillary lymphadenopathy Results & Data Results & Data Vital Signs (Past 12 Hours) Vital Signs Temp Pulse Pulse Resp BP BP Pulse Ox 05/14/23 15:00 82 23 94/46 L 95 05/14/23 14:24 80 05/14/23 13:33 90 20 104/53 L 99 05/14/23 11:20 85 17 99/50 L 88 L 05/14/23 10:21 86 05/14/23 09:58 38 C H 88 18 99/62 L 94 05/14/23 09:58 38 C H 88 18 99/62 L 94 O2 Del Method O2 Flow Rate 05/14/23 15:00 05/14/23 14:24 05/14/23 13:33 Nasal Cannula 2 05/14/23 11:20 Room Air 05/14/23 10:21 05/14/23 09:58 Room Air 05/14/23 09:58 Room Air Laboratory Results 05/14/23 10:09 05/14/23 10:09 Coding Level of Care Code 20007 CRITICAL CARE 1ST 30-74M Diagnoses Stage 3b chronic kidney disease N18.32 Acute hyponatremia E87.1 Closed fracture of left hip S72.002A Elevated troponin R79.89 Hypothyroidism E03.9 Hyperlipidemia E78.5 Hypoxia R09.02 Closed displaced intertrochanteric fracture of left femur, initial encounter S72.142A Encounter type: initial encounter Fracture alignment: displaced Metabolic encephalopathy G93.41 High anion gap metabolic acidosis E87.29 Acute kidney injury superimposed on CKD N17.9; N18.9 Time Spent (min) 58 (8) Closed intertrochanteric fracture of left femur Encounter type: initial encounter Fracture alignment: displaced Qualified Code(s): S72.142A - Displaced intertrochanteric fracture of left femur, initial encounter for closed fracture
[2023-05-14] MEDS: LACTATED RINGER'S 1,000 ML IV SCH (16:03)
[2023-05-14] MEDS: INSULIN REGULAR 250 UNITS in SODIUM CHLORIDE 0.9% 247.5 ML IV SCH (16:08)
[2023-05-14 16:21] LABS: BUN Creatinine Ratio 42.6 (10-20); Calcium 7.8 mg/dl (8.6-10.3); Creatinine Clr Calc Pharmacy 15.8 ml/min; Est GFR (African American) 21.3 ml/min; Est GFR (Non-African American) 18.3 ml/min; Magnesium 1.8 mg/dl (1.7-2.4); Phosphorus 3.6 mg/dl (2.5-4.9); Potassium 5.3 mmol/L (3.5-5.1)
[2023-05-14 16:21] LABS: Potassium Random Urine 69.6 mmol/L
[2023-05-14 16:29] LABS: Creatinine Urine Random 135.4 mg/dl
[2023-05-14] MEDS ORDERED: ICU Protocol for HYPERglycemia SCH (16:59)
[2023-05-14] MEDS: INSULIN ASPART PER UNIT CHARGE SC SCH (17:46)
--- NOTE | 2023-05-14 17:48 | CT Scan Report ---
LEFT FEMUR CT CT DOSE: HISTORY: Left leg pain. trauma, ?hematoma TECHNIQUE: Multiaxial CT images of the left femur were performed and reformatted in the sagittal and coronal plane without the use of contrast. A dose lowering technique was utilized adhering to the pr inciples of [place]. COMPARISON: Left hip radiograph 05/14/2023. FINDINGS: The visualized left pelvic bones are intact. There is again noted a comminuted, impacted, m ildly displaced intertrochanteric fracture within the proximal left femur. No dislocation of the left femoral head. The mid to distal left femur appears intact. Subcutaneous contusion/edema seen within the left lateral hip. There is also subcutaneous edema within the left thigh. Soft tissue gas seen wi thin the left hip and adjacent to the proximal left femur likely due to the recent posttraumatic davies ges. Edema and a small amount of intramuscular hemorrhage within the left thigh musculature surroundi ng the proximal femur. No focal intramuscular hematoma identified within the left thigh. IMPRESSION: 1. There is again noted a comminuted, impacted, mildly displaced intertrochanteric fracture the proxi mal left femur. No dislocation of the left femoral head. 2. The mid to distal left femur is intact. 3. Soft tissue gas within the left hip and adjacent to the proximal left femur likely due to the rece nt posttraumatic changes. 4. Edema and a small amount of intramuscular hemorrhage within the left thigh surrounding the proxima l femur. No focal intramuscular hematoma identified. ACT 112: Negative or not required by law. Electronically signed by: Saul Rojas M.D. 05/14/2023 5:45 PM
--- NOTE | 2023-05-14 17:49 | CT Scan Report ---
LEFT TIBIA/FIBULA CT CT DOSE: HISTORY: Left lower leg pain. trauma, ?hematoma TECHNIQUE: Multiaxial CT images of the left tibia/fibula were performed and reformatted in the sagitt al and coronal plane without the use of contrast. A dose lowering technique was utilized adhering to the principles of [place]. COMPARISON: Left ankle radiograph 05/14/2023. FINDINGS: No acute fracture or dislocation within the left tibia or fibula. Severe osteoarthritis not ed at the tibiotalar joint with [id number] articulation. There is an old distal left fibular fractu re. There is severe osteoarthritis at the middle compartment of the left knee. No significant knee ef fusion. Mild subcutaneous edema within the left lower leg. No soft tissue hematoma identified. Vascul ar calcifications are noted. IMPRESSION: No acute fracture or dislocation within the left lower leg. ACT 112: Negative or not required by law. Electronically signed by: Saul Rojas M.D. 05/14/2023 5:48 PM
--- NOTE | 2023-05-14 18:01 | CT Scan Report ---
ABDOMEN AND PELVIS CT WITHOUT CONTRAST CT DOSE: 1889.97 mGy.cm HISTORY: Left hip fracture. Trauma. abdominal pain TECHNIQUE: Multiaxial CT images of the abdomen and pelvis were performed without contrast. A dose lo wering technique was utilized adhering to the principles of [place]. COMPARISON STUDY: Abdomen and pelvis CT 12/22/2022. FINDINGS: There is a trace right pleural effusion. Bibasilar linear densities favor subsegmental atel ectasis. Subcutaneous gas within the anterior abdominal wall is likely due to medication injection. N o pneumoperitoneum. No pneumatosis. Redemonstration of the left femoral intertrochanteric fracture wi th surrounding soft tissue edema and gas. Asymmetric thickening within the left proximal thigh and ad ductor muscles may represent intramuscular edema/hemorrhage. No focal intramuscular hematoma identifi ed. There is also mild asymmetric thickening within the left iliacus muscle without definite intramus cular hematoma. No retroperitoneal hematoma identified. There is moderate perinephric edema and moder ate body wall edema. There is left lateral hip subcutaneous contusion noted. Old fracture deformity o f the distal sacrum. Old compression deformities at T12 and L2, unchanged. Nondisplaced left L2 trans verse fracture which is likely subacute. There is suggestion of partial healing in this left L2 trans verse process fracture. Cholelithiasis. No gallbladder wall thickening. The unenhanced liver, spleen, and pancreas are unremarkable. Chronic bilateral adrenal gland thickening, unchanged. No renal stone s or hydronephrosis. Normal caliber abdominal aorta with mild calcified plaque. No significant pelvic free fluid. The bladder is decompressed by Salmon catheter. The uterus is unremarkable. Colonic diver ticulosis. No evidence for acute diverticulitis. No bowel wall thickening or obstruction. Normal appe ndix. IMPRESSION: 1. Redemonstration of the comminuted and mildly displaced for left intertrochanteric fracture. 2. Asymmetric thickening within the proximal left thigh musculature including the left adductor muscl es and left iliacus muscle with surrounding soft tissue gas. This likely represents edema/hemorrhage associated with the left hip fracture. No well-defined intramuscular hematoma identified. 3. Subcutaneous contusion within the left lateral hip. 4. Nondisplaced left lateral L2 fracture which appears to be subacute. 5. Additional findings as described above. ACT 112: Negative or not required by law. Electronically signed by: Saul Rojas M.D. 05/14/2023 5:58 PM
[2023-05-14] MEDS: PANTOprazole 40 MG in SYRINGE 0 ML IV SCH (18:06)
[2023-05-14] MEDS ORDERED: VANCOMYCIN CONSULT ACTIVE PRN ×2 (18:40)
[2023-05-14] MEDS ORDERED: VANCOMYCIN HCL 750 MG in SODIUM CHLORIDE 0.9% 500 ML IV ONE (18:40)
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
[2023-05-14] MEDS ORDERED: GLUCAGON FOR INJ 1 MG VIAL IM PRN (19:00)
[2023-05-14] MEDS ORDERED: GLUCOSE 10 TAB/TUBE PO PRN (19:00)
[2023-05-14] MEDS ORDERED: CARBOHYDRATES FOR HYPOGLYCEMIA PO PRN (19:00)
[2023-05-14] MEDS ORDERED: GLUCOSE 40% GEL 15 GM TUBE PO PRN (19:00)
[2023-05-14 20:15] LABS: Anion Gap 6 (3-11); Anion Gap 8 (3-11); BUN Creatinine Ratio 45.1 (10-20); BUN Creatinine Ratio 45.8 (10-20); Blood Urea Nitrogen 102 mg/dl (6-23); Blood Urea Nitrogen 103 mg/dl (6-23); Calcium 8.1 mg/dl (8.6-10.3); Carbon Dioxide 16 mmol/L (21-32); Carbon Dioxide 17 mmol/L (21-32); Chloride 106 mmol/L (98-107); Creatinine Clr Calc Pharmacy 16.8 ml/min; Est GFR (African American) 23.3 ml/min; Est GFR (African American) 23.4 ml/min; Est GFR (Non-African American) 20.1 ml/min; Est GFR (Non-African American) 20.2 ml/min; Glucose 282 mg/dl (70-99(Fasting)); Glucose 283 mg/dl (70-99(Fasting)); Phosphorus 3.6 mg/dl (2.5-4.9); Sodium 129 mmol/L (136-145); Sodium 130 mmol/L (136-145)
[2023-05-14] MEDS: DKA GOAL RANGE 150-250 mg/dl ONE (20:22)
[2023-05-14] MEDS: VANCOMYCIN HCL 1,250 MG in SODIUM CHLORIDE 0.9% 250 ML IV STA (20:25)
[2023-05-14] MEDS: LIDOCAINE 5% 1 PATCH TD STA (20:25)
[2023-05-14 20:27] LABS: Troponin I High Sensitivity 25.9 pg/ml (0-14)
--- NOTE | 2023-05-14 21:28 | Pharmacy Report ---
Pharmacy Glycemic Short Note 2 - Date of Service May 14, 2023 - Glycemic Short BSG Results (Last 24 hours): 05/14/23 05/14/23 05/14/23 09:56 10:09 13:30 Glucose 531 H* POC Glucose 498 H* 422 H* POC Glucose (other) 05/14/23 05/14/23 05/14/23 13:47 15:34 16:11 Glucose 394 H* POC Glucose 354 H* POC Glucose (other) 424 H* 05/14/23 05/14/23 05/14/23 17:44 18:46 19:38 Glucose 283 H POC Glucose 372 H* 342 H* POC Glucose (other) 05/14/23 05/14/23 05/14/23 19:38 19:49 20:47 Glucose 282 H POC Glucose 268 H 277 H POC Glucose (other) OUTPATIENT ANTIDIABETIC REGIMEN: * Januvia 50 mg daily * Lantus 20 units SQ QPM * HbA1c 7.0% (03/02/23) ASSESSMENT: * Meri is a 77 YOF admitted with a femur fracture found to be in JANICE and HHS. She has a history of T2DM. Pharmacy has been consulted for glycemic management while inpatient. * She was acidotic with increased anion gap and decreased bicarbonate. BSG >500 on admission, Two IV regular boluses given with BSGs still elevated. She was started on an insulin drip at this time. Labs improving, BSGs still not in goal range. LR @125mL/hr currently running. Pending order to add D5W to fluids once BSGs in goal range. Insulin drip still running at a high rate. * She is receiving cefepime and vancomycin for leukocytosis, potential pneumonia or UTI. * Continue insulin drip at this time. Labs Q4H ordered. PLAN FOR INPATIENT GLYCEMIC CONTROL: * Hold outpatient oral medications * Continue insulin drip
[2023-05-14] MEDS: D5W AND LACTATED RINGERS 1,000 ML IV SCH (22:23)
[2023-05-14] MEDS ORDERED: ALBUT/IPRATROP 3MG/0.5MG NEB 3 ML VIAL INH PRN (22:26)
[2023-05-14] MEDS ORDERED: D5W AND 1/2NSS 1,000 ML IV SCH (22:30)
[2023-05-14 23:48] LABS: A calco-baum cmplx NotReported Not Detected (NotDetected); Bact fragilis Not Reported Not Detected (NotDetected); Blood Culture Id Panel See PCR Comment (NotDetected); E cloacae compx Not Reported Not Detected (NotDetected); Efaecalis Not Reported Not Detected (NotDetected); Efaecium Not Reported Not Detected (NotDetected); Enterobacterales Not Reported Not Detected (NotDetected); Escherichia coli Not Reported Not Detected (NotDetected); H influenzae Not Reported Not Detected (NotDetected); K aerogenes Not Reported Not Detected (NotDetected); Koxytoca Not Reported Not Detected (NotDetected); Kpneumoniae grp Not Reported Not Detected (NotDetected); Lmonocyt Not Reported Not Detected (NotDetected); Proteus spp Not Reported Not Detected (NotDetected); Salmonella spp Not Reported Not Detected (NotDetected); Smarcescens Not Reported Not Detected (NotDetected); Staph lugdunensis Not Reported Not Detected (NotDetected); Staph spp. Not Reported DETECTED (NotDetected); Staphaureus Not Reported DETECTED (NotDetected); Staphepi Not Reported Not Detected (NotDetected); Staphylococcus spp. DETECTED (NotDetected); Strep agal(GrpB) Not Reported Not Detected (NotDetected); Strep pneum Not Reported Not Detected (NotDetected); Strep pyog (GrpA) Not Reported Not Detected (NotDetected); Strep spp Not Reported Not Detected (NotDetected); mecAC+MREJ Resistant Gene MRSA Not Detected (NotDetected)
[2023-05-14 23:49] LABS: C auris Not Reported Not Detected (NotDetected); Calbicans Not Reported Not Detected (NotDetected); Candida glabrata Not Reported Not Detected (NotDetected); Candida krusei Not Reported Not Detected (NotDetected); Cneoformans/gatti Not Reported Not Detected (NotDetected); Cparapsilosis Not Reported Not Detected (NotDetected); N meningitidis Not Reported Not Detected (NotDetected); P aeruginosa Not Reported Not Detected (NotDetected); Stenmaltophilia Not Reported Not Detected (NotDetected)
[2023-05-14 23:59] LABS: Calcium 8.3 mg/dl (8.6-10.3); Potassium 5.4 mmol/L (3.5-5.1)
[2023-05-15 00:04] LABS: BUN Creatinine Ratio 44.3 (10-20); Creatinine Clr Calc Pharmacy 17.3 ml/min; Est GFR (African American) 24.2 ml/min; Est GFR (Non-African American) 20.9 ml/min; Phosphorus 3.4 mg/dl (2.5-4.9)
[2023-05-15] MEDS: HYDROmorphone INJ 1 MG/ML SYRINGE IV PRN (02:34)
[2023-05-15 04:09] LABS: Hematocrit (blood only) 27.1 % (37.0-47.0); Hemoglobin 9.1 g/dl (12.0-16.0); Mean Corpuscular Hgb Conc 33.6 g/dL (32.0-36.0); Mean Corpuscular Volume 92.2 fL (80.0-100.0); Mean Platelet Volume 11.2 fL (9.4-12.4); Nucleated RBC # (auto) 0.07 K/uL (0.00-0.12); Nucleated RBC % (auto) 0.3 %; Platelet Count 230 K/uL (130-400); RDW Coefficient of Variation 18.3 % (11.5-14.5); Red Blood Count 2.94 M/uL (4.20-5.40); White Blood Count 23.15 K/ul (4.8-10.8)
[2023-05-15 04:22] LABS: Albumin Globulin Ratio 0.8 (0.9-2); Albumin Level 2.3 gm/dl (3.4-5.0); BUN Creatinine Ratio 45.7 (10-20); Bilirubin Direct 0.2 mg/dl (0-0.2); Bilirubin,Total 0.5 mg/dl (0.2-1.0); Calcium 8.3 mg/dl (8.6-10.3); Creatinine Clr Calc Pharmacy 18.2 ml/min; Est GFR (African American) 25.8 ml/min; Est GFR (Non-African American) 22.2 ml/min; Globulin 2.8 gm/dl (2.5-4.0); Potassium 5.2 mmol/L (3.5-5.1); Total Protein 5.1 gm/dl (6.0-8.3)
[2023-05-15 04:27] LABS: BUN Creatinine Ratio 53.3 (10-20); Calcium 8.2 mg/dl (8.6-10.3); Creatinine Clr Calc Pharmacy 20.6 ml/min; Est GFR (African American) 29.9 ml/min; Est GFR (Non-African American) 25.8 ml/min; Magnesium 1.9 mg/dl (1.7-2.4); Phosphorus 3.1 mg/dl (2.5-4.9); Potassium 5.2 mmol/L (3.5-5.1)
[2023-05-15 04:33] LABS: INR 1.1 (0.9-1.1); Partial Thromboplastin Ratio 1.1; Partial Thromboplastin Time 30 Seconds (21-31); Prothrombin Time 11.9 Seconds (9.0-12.0)
[2023-05-15 05:03] LABS: Basophils # (auto) 0.05 K/uL (0.00-0.20); Basophils % (auto) 0.2 %; Echinocytes 1+; Eosinophils # (auto) 0.02 K/uL (0.00-0.50); Eosinophils % (auto) 0.1 %; Immature Granulocytes # (auto) 0.41 K/uL (0.01-0.20); Immature Granulocytes % (auto) 1.8 %; Lymphocytes # (auto) 0.53 K/uL (1.20-3.40); Lymphocytes % (auto) 2.3 %; Monocytes # (auto) 0.52 K/uL (0.11-0.59); Monocytes % (auto) 2.2 %; Neutrophils # (auto) 21.62 K/uL (1.40-6.50); Neutrophils % (auto) 93.4 %; Polychromasia 1+; Toxic Vacuolation 1+
[2023-05-15] MEDS: LEVOTHYROXINE SODIUM 88 MCG TABLET PO SCH (05:53)
--- NOTE | 2023-05-15 07:10 | Critical Care Progress Note ---
Date of Service May 15, 2023 Assessment & Plan (1) Stage 3b chronic kidney disease: (2) Acute hyponatremia: (3) Closed fracture of left hip: (4) Elevated troponin: (5) Hypothyroidism: (6) Hyperlipidemia: (7) Hypoxia: (8) Closed intertrochanteric fracture of left femur: (9) Metabolic encephalopathy: (10) High anion gap metabolic acidosis: (11) Acute kidney injury superimposed on CKD: Plan Reason Critically Ill: 77-year-old female being admitted to the hospital for fall, Past medical history: CKD, Parkinson's, mild dementia. In the ED patient was found to be in DKA, JANICE as well as anemic, sent to the ICU for further management Neuro - [facility] ICU: Unable to assess --Metabolic encephalopathy Multifactorial Underlying DKA with possible infection/sepsis TSH low but free T4 within normal limit Corrected sodium 133 Calcium within normal limit --History of dementia On donepezil --Anxiety/depression On sertraline at home Cardiac - --S/p hypotension Responded to fluids Home blood pressure medication on hold Continue to monitor if the patient's blood pressure trends down then start vasopressors to keep MAP greater than 65 Random cortisol 34.28 --Elevated troponins Likely type II SD EKG 05/14/2023, 10 AM: Normal sinus rhythm, normal axis, poor R wave progression on the lateral leads, less than [address] elevation in lead III, no T wave changes 2D echo 12/19/2022: EF 55-60%, grade 1 diastolic dysfunction, RV normal in size and function Respiratory - -- Shortness of breath Likely in response to metabolic acidosis Saturating 95% on 2 L nasal cannula Chest x-ray shows atelectasis on the right side. No clear lung infiltrate Doppler bilateral lower extremity negative for DVT Probability of pulmonary emboli is low GI - -- Transaminitis Likely secondary to fall Continue to trend Follow-up CPK RENAL/LYTES - --S/p HAGMA Delta-delta: Less than 1 Likely sec to gap plus nongap, gap likely from DKA, for nongap follow-up urine lites Continue with insulin drip until anion gap closes Decreasing blood glucose no more than 100 in an hour Replace potassium IV when potassium level between 3.3-5.3 BMP every 4 hours Continue with IV fluids -- JANICE --> improving Follow-up urine lites Monitor BUN/creatinine Avoid nephrotoxic medications Strict ins and outs -- Hyperkalemia Likely from metabolic acidosis Repeat potassium is 5.4 No T wave changes on the EKG --Hyponatremia Corrected sodium is 133 Continue to monitor - -- Continue with Salmon catheter ENDO - -- Diabetes type 2 Continue with ICU hypoglycemia protocol --Hypothyroidism TSH 0.14 with Free T4 within normal limit, continue levothyroxine HEME - -- Acute on chronic anemia S/p 1 unit PRBC on 05/14/2023 ID - --Positive blood culture, gram-positive cocci in clusters MSSA Nasal MRSA positive Procalcitonin 8.15 Continue with antibiotics -- Leukocytosis Could be secondary to DKA Continue with broad-spectrum antibiotics till we have blood culture and urine culture back Musculoskeletal - -- Acute mildly displaced intertrochanteric fracture of the left femur Orthopedic on board --DNR/DNI Okay to use vasopressors --Prophylaxis VTE: IPC GI: Pantoprazole Lines: Peripheral Diet: Diabetic Plan: In/out: +4.4 L, urine output 1025 Nasal MRSA is positive but blood culture is showing MSSA. Will repeat blood cultures today as it was only 1 set which was done. Will repeat a chest x-ray today if the chest x-ray does not show the right-sided linear opacity then we will discontinue vancomycin and give the patient Rocephin instead. Will bridge IV insulin to subcu insulin. Decrease IV fluid rate to 75 mill an hour, DC dextrose. Diabetic diet once the patient is able to swallow Patient hemodynamically stable to be downgrade to medical floor Case was discussed with primary team Please note the above document was generated using voice recognition software. It may contain grammatical, syntax or spelling errors.Any formal questions or concerns about the content, text or information contained within the body of this dictation should be directly addressed to the provider for clarification. Admission and Anticipated Discharge Date Admission Date: May 14, 2023 Subjective Patient seen and examined at bedside. No acute distress, notable symptoms overnight Patient was more alert today and answering questions appropriately Complain of mild headache No nausea or vomiting Was asking to eat Denies any abdominal pain Was saturating 97% on 2 L nasal cannula, I turned it off Review of Systems 2 Review of Systems: Unobtainable due to mental health condition and Unobtainable due to cognitive status Physical Exam 2 Physical Exam: Constitutional: No acute distress HEENT: EOMI, PERRLA Respiratory system: Decreased air entry bilaterally, no wheeze, no rhonchi, positive crackles bilaterally, R>L CVS: S1-S2 positive, no murmurs or gallops Abdomen: Soft, nontender, nondistended, positive bowel sounds x4, access site on the anterior abdomen Extremities: +1 pulses bilaterally radialis/ dorsalis pedis, no cyanosis, +1 pitting edema bilateral lower extremities, Left leg internally rotated and shortened Neuro: Somnolent but easily arousable, moving all extremities on command Psych: Flat mood and affect G/U: Positive Salmon Skin: no rashes, warm and dry Lymphatic: no cervical or axillary lymphadenopathy Results & Data Results & Data Vital Signs (Past 12 Hours) Vital Signs Temp Pulse Resp BP Pulse Ox O2 Del Method O2 Flow Rate 05/15/23 02:41 21 119/56 L 95 Nasal Cannula 2 05/15/23 02:41 106 H 21 95 05/15/23 02:11 119/59 L 05/15/23 02:11 89 23 98 Nasal Cannula 2 05/15/23 02:00 89 20 98 05/15/23 01:41 128/43 L 05/15/23 01:41 90 20 98 Nasal Cannula 2 05/15/23 01:11 121/55 L 05/15/23 01:11 88 22 98 05/15/23 01:00 89 21 95 Nasal Cannula 2 05/15/23 00:41 112/49 L 05/15/23 00:41 84 21 94 05/15/23 00:11 118/40 L 05/15/23 00:11 83 20 97 Nasal Cannula 2 05/15/23 00:00 90 17 97 05/15/23 00:00 81 05/14/23 23:41 108/45 L 05/14/23 23:41 84 20 97 Nasal Cannula 2 05/14/23 23:11 111/46 L 05/14/23 23:11 78 19 95 05/14/23 23:04 Nasal Cannula 2 05/14/23 23:00 80 24 96 05/14/23 22:41 111/49 L 05/14/23 22:41 83 23 96 05/14/23 22:26 84 20 98 Nasal Cannula 2 05/14/23 22:26 105/46 L 05/14/23 22:11 80 20 96 05/14/23 22:11 105/51 L 05/14/23 22:00 84 22 98 05/14/23 21:56 85 21 98 Nasal Cannula 2 05/14/23 21:56 105/54 L 05/14/23 21:41 81 23 97 05/14/23 21:41 108/44 L 05/14/23 21:26 103/36 L 05/14/23 21:26 81 20 96 Nasal Cannula 2 05/14/23 21:15 36.6 C 82 14 112/44 L 96 05/14/23 21:14 36.6 C 82 14 112/44 L 96 05/14/23 21:11 81 24 96 05/14/23 21:11 112/44 L 05/14/23 21:00 79 15 97 Nasal Cannula 2 05/14/23 20:56 87 21 97 05/14/23 20:56 98/47 L 05/14/23 20:45 82 22 97 Nasal Cannula 2 05/14/23 20:41 80 23 97 05/14/23 20:41 104/51 L 05/14/23 20:30 79 24 97 05/14/23 20:26 78 23 98 Nasal Cannula 2 05/14/23 20:26 101/52 L 05/14/23 20:15 83 19 96 05/14/23 20:15 36.7 C 81 14 101/52 L 97 05/14/23 20:11 121/45 L 05/14/23 20:11 83 20 96 Nasal Cannula 2 05/14/23 20:00 80 23 93 05/14/23 19:56 83 18 94 Nasal Cannula 2 05/14/23 19:56 108/46 L 05/14/23 19:45 80 17 94 05/14/23 19:41 80 20 93 Nasal Cannula 2 05/14/23 19:41 98/49 L 05/14/23 19:31 77 20 95 Nasal Cannula 2 05/14/23 19:15 36.7 C 78 14 121/58 L 97 05/14/23 19:14 36.9 C 81 24 112/48 L 94 2 Laboratory Results 05/15/23 03:38 05/15/23 07:54 Coding Level of Care Code 94079 SUB INP/OBS CARE 3/50MIN Diagnoses Stage 3b chronic kidney disease N18.32 Acute hyponatremia E87.1 Closed fracture of left hip S72.002A Elevated troponin R79.89 Hypothyroidism E03.9 Hyperlipidemia E78.5 Hypoxia R09.02 Closed displaced intertrochanteric fracture of left femur, initial encounter S72.142A Encounter type: initial encounter Fracture alignment: displaced Metabolic encephalopathy G93.41 High anion gap metabolic acidosis E87.29 Acute kidney injury superimposed on CKD N17.9; N18.9 (8) Closed intertrochanteric fracture of left femur Encounter type: initial encounter Fracture alignment: displaced Qualified Code(s): S72.142A - Displaced intertrochanteric fracture of left femur, initial encounter for closed fracture
--- NOTE | 2023-05-15 07:50 | Hospitalist Progress Note ---
Date of Service May 15, 2023 Assessment & Plan (1) DM type 2 (diabetes mellitus, type 2): Plan: HHS, HAGMA Insulin drip HHS protocol Initially with increased anion gap, decreased bicarb, VBG 7.25. Gap normalized following fluids, HHS protocol transition to basal bolus pharmacy glycemic management, hyperkalemia will give patiromer (2) JANICE (acute kidney injury): Plan: JANICE, hyperkalemia, improving, additional patiromer Baseline around 1.5, Improving with hydration (3) Dyspnea: Plan: By wells criteria score is 3, PE unlikely will have dvt prophylaxis cautiosly with acute blood loss anemia from femur fracture (4) Closed intertrochanteric fracture of left femur: Plan: Likely occurred 8 days prior to admission, ortho will repair once stable for anesthesia. CT demonstrate edema and hemorrhage associated with left hip fracture, soft tissue gas seen concern for MSSA bacteremia, will need to clear infection prior to surgical infection Orthopedics consulted (5) Anemia: Plan: Acute blood loss anemia, secondary to hip fracture CTA/P with no evidence of retroperitoneal hematoma Clinically improved on reassessment, hemoglobin trended (6) Leukocytosis: Plan: Leukocytosis, febrile on admission, 2 of 2 blood cultures show Gr +, PCR staph, not mrsa gene DDx includes developing pneumonia, UTI. Lower extremity with fracture but no overlying warmth/erythema or crepitus Patient covered empirically with cefepime on admission. MRSA nare positive, but looks like mssa Patient has exceeded 30 cc/kg of recommended sepsis protocol fluids. Additional fluids per assessment and HHS protocol, Tylenol IV, trend fever curve Plan DVT prophylaxis: Pharmacal prophylaxis contraindicated in setting of anemia and fracture, SCDs as tolerated CODE STATUS: DNR/DNI POLST is on file Admission and Anticipated Discharge Date Admission Date: May 14, 2023 Subjective pt appears much improved from inital description in ER has MSSA bacteremia, source to be determined, has subacute hip fracture, Improving janice and acute blood loss anemia she has controlled pain worse with movement Physical Exam Physical Exam: pleasant, conversant and can follow commands cardiac exam is regular lungs are diminished left leg is shortened and rotated no open areas, good cap refill Results & Data Results & Data Vital Signs (Past 12 Hours) Vital Signs Temp Pulse Resp BP Pulse Ox O2 Del Method O2 Flow Rate 05/15/23 02:41 21 119/56 L 95 Nasal Cannula 2 03/16/24 02:41 106 H 21 95 05/15/23 02:11 119/59 L 05/15/23 02:11 89 23 98 Nasal Cannula 2 05/15/23 02:00 89 20 98 05/15/23 01:41 128/43 L 05/15/23 01:41 90 20 98 Nasal Cannula 2 05/15/23 01:11 121/55 L 05/15/23 01:11 88 22 98 05/15/23 01:00 89 21 95 Nasal Cannula 2 05/15/23 00:41 112/49 L 05/15/23 00:41 84 21 94 05/15/23 00:11 118/40 L 05/15/23 00:11 83 20 97 Nasal Cannula 2 05/15/23 00:00 90 17 97 05/15/23 00:00 81 05/14/23 23:41 108/45 L 05/14/23 23:41 84 20 97 Nasal Cannula 2 05/14/23 23:11 111/46 L 05/14/23 23:11 78 19 95 05/14/23 23:04 Nasal Cannula 2 05/14/23 23:00 80 24 96 05/14/23 22:41 111/49 L 05/14/23 22:41 83 23 96 05/14/23 22:26 84 20 98 Nasal Cannula 2 05/14/23 22:26 105/46 L 05/14/23 22:11 80 20 96 05/14/23 22:11 105/51 L 05/14/23 22:00 84 22 98 05/14/23 21:56 85 21 98 Nasal Cannula 2 05/14/23 21:56 105/54 L 05/14/23 21:41 81 23 97 05/14/23 21:41 108/44 L 05/14/23 21:26 103/36 L 05/14/23 21:26 81 20 96 Nasal Cannula 2 05/14/23 21:15 97.9 F 82 14 112/44 L 96 05/14/23 21:14 97.9 F 82 14 112/44 L 96 05/14/23 21:11 81 24 96 05/14/23 21:11 112/44 L 05/14/23 21:00 79 15 97 Nasal Cannula 2 05/14/23 20:56 87 21 97 05/14/23 20:56 98/47 L 05/14/23 20:45 82 22 97 Nasal Cannula 2 05/14/23 20:41 80 23 97 05/14/23 20:41 104/51 L 05/14/23 20:30 79 24 97 05/14/23 20:26 78 23 98 Nasal Cannula 2 05/14/23 20:26 101/52 L 05/14/23 20:15 83 19 96 05/14/23 20:15 98.1 F 81 14 101/52 L 97 05/14/23 20:11 121/45 L 05/14/23 20:11 83 20 96 Nasal Cannula 2 05/14/23 20:00 80 23 93 05/14/23 19:56 83 18 94 Nasal Cannula 2 05/14/23 19:56 108/46 L 05/14/23 19:45 80 17 94 05/14/23 19:41 80 20 93 Nasal Cannula 2 05/14/23 19:41 98/49 L Laboratory Results review cbc reviewed chemistry PG Care Time/CCT Total # of Minutes Spent Total Time Spent with Patient: Total time spent is greater than 50% in coordination of care (as documented) at patient's floor/unit and/or counseling patient: Coding Level of Care Code 32950 SUB INP/OBS CARE 3/50MIN Diagnoses DM type 2 (diabetes mellitus, type 2) E11.9 JANICE (acute kidney injury) N17.9 Dyspnea R06.00 Closed displaced intertrochanteric fracture of left femur, initial encounter S72.142A Encounter type: initial encounter Fracture alignment: displaced Anemia D64.9 Leukocytosis D72.829 (4) Closed intertrochanteric fracture of left femur Encounter type: initial encounter Fracture alignment: displaced Qualified Code(s): S72.142A - Displaced intertrochanteric fracture of left femur, initial encounter for closed fracture
--- NOTE | 2023-05-15 07:56 | Electrocardiogram Report ---
Test Reason : Blood Pressure : / mmHG Vent. Rate : 086 BPM Atrial Rate : 086 BPM P-R Int : 136 ms QRS Dur : 080 ms QT Int : 348 ms P-R-T Axes : 060 029 070 degrees QTc Int : 416 ms Sinus rhythm with occasional Premature ventricular complexes Otherwise normal ECG When compared with ECG of 18-DEC-2022 00:49, Premature ventricular complexes are now Present Limb lead reversal is no longer present Confirmed by Hakan Sandoval ([id number]) on 05/15/2023 7:56:18 AM Referred By: REFERRED SELF Confirmed By:Hakan Sandoval
[2023-05-15 08:40] LABS: BUN Creatinine Ratio 48.5 (10-20); Calcium 8.2 mg/dl (8.6-10.3); Creatinine Clr Calc Pharmacy 19.4 ml/min; Est GFR (African American) 27.7 ml/min; Est GFR (Non-African American) 23.9 ml/min; Magnesium 1.9 mg/dl (1.7-2.4); Phosphorus 3.2 mg/dl (2.5-4.9); Potassium 5.3 mmol/L (3.5-5.1)
[2023-05-15] MEDS: ACETAMINOPHEN 1,000 MG/100 ML VIAL IV PRN (08:59)
[2023-05-15] MEDS: FLUTICASONE/VILANTEROL 100/25MCG 14 PUFFS/INHALER INH SCH (09:00)
[2023-05-15] MEDS: PRIMIDONE 50 MG TAB PO SCH (09:00)
[2023-05-15] MEDS: SERTRALINE HCL 50 MG TABLET PO SCH (09:00)
[2023-05-15] MEDS: DONEPEZIL HCL 10 MG TAB PO SCH (09:00)
[2023-05-15] MEDS: LACTATED RINGER'S 1,000 ML IV SCH (09:17)
--- NOTE | 2023-05-15 09:46 | XRay Report ---
XR chest 1V portable CLINICAL HISTORY: f/u COMPARISON STUDY: Chest radiograph May 14, 2023. FINDINGS: There is no pneumothorax or pleural effusion. Linear right midlung density is unchanged and favors atelectasis or scarring. There is cardiomegaly without evidence for pulmonary edema. IMPRESSION: No acute cardiopulmonary findings. ACT 112: Negative or not required by law. Electronically signed by: Bobby Mcclendon M.D. 05/15/2023 9:45 AM
[2023-05-15] MEDS: LANTUS PER UNIT CHARGE SC ONE ×2 (09:47→20:44)
[2023-05-15] MEDS: VANCOMYCIN HCL 750 MG in SODIUM CHLORIDE 0.9% 250 ML IV ONE (09:48)
[2023-05-15] MEDS: cefTRIAXone SODIUM 2,000 MG in DEXTROSE 5 % MINI-B 50 ML IV SCH (11:57)
[2023-05-15] MEDS ORDERED: CEFEPIME 2,000 MG in SYRINGE 0 ML IV SCH (12:00)
[2023-05-15 12:27] LABS: BUN Creatinine Ratio 50.5 (10-20); Calcium 8.4 mg/dl (8.6-10.3); Creatinine Clr Calc Pharmacy 20.6 ml/min; Est GFR (African American) 29.9 ml/min; Est GFR (Non-African American) 25.8 ml/min; Magnesium 1.9 mg/dl (1.7-2.4); Phosphorus 3.3 mg/dl (2.5-4.9); Potassium 5.3 mmol/L (3.5-5.1)
[2023-05-15] MEDS: HYDROmorphone INJ 0.5 MG/0.5 ML SYR IV PRN (13:43)
--- NOTE | 2023-05-15 14:41 | Pharmacy Report ---
Pharmacy Glycemic Short Note 2 - Date of Service May 15, 2023 - Glycemic Short BSG Results (Last 24 hours): 05/14/23 05/14/23 05/14/23 15:34 16:11 17:44 Glucose 394 H* POC Glucose 354 H* 372 H* 05/14/23 05/14/23 05/14/23 18:46 19:38 19:38 Glucose 283 H 282 H POC Glucose 342 H* 05/14/23 05/14/23 05/14/23 19:49 20:47 21:20 Glucose POC Glucose 268 H 277 H 243 H 05/14/23 05/14/23 05/14/23 22:50 23:15 23:44 Glucose 179 H POC Glucose 184 H 184 H 05/15/23 05/15/23 05/15/23 00:46 01:47 02:54 Glucose POC Glucose 157 H 147 H 131 H 05/15/23 05/15/23 05/15/23 03:38 03:38 03:43 Glucose 126 H 128 H POC Glucose 136 H 05/15/23 05/15/23 05/15/23 05:01 05:02 05:48 Glucose POC Glucose 128 H 121 H 124 H 05/15/23 05/15/23 05/15/23 06:47 07:37 07:54 Glucose 126 H POC Glucose 128 H 120 H 05/15/23 05/15/23 05/15/23 08:38 09:43 10:53 Glucose POC Glucose 158 H 130 H 151 H 05/15/23 05/15/23 05/15/23 11:49 11:51 12:58 Glucose 141 H POC Glucose 145 H 172 H 05/15/23 13:42 Glucose POC Glucose 161 H OUTPATIENT ANTIDIABETIC REGIMEN: * Januvia 50 mg daily * Lantus 20 units SQ QPM * HbA1c 7.0% (03/02/23) ASSESSMENT: 05/14: * BSGs were stable overnight with insulin infusion. Anion gap closed this morning. Per product sales engineer would like to transition off of insulin infusion * 20 units of lantus given this AM, dextrose removed from IVF, patient ordered diet but intake somewhat limited at this time * Will discontinue infusion after ~5 hours of overlap with lantus dose, resume novolog coverage with dinner 05/13 * Meri is a 77 YOF admitted with a femur fracture found to be in JANICE and HHS. She has a history of T2DM. Pharmacy has been consulted for glycemic management while inpatient. * She was acidotic with increased anion gap and decreased bicarbonate. BSG >500 on admission, Two IV regular boluses given with BSGs still elevated. She was started on an insulin drip at this time. Labs improving, BSGs still not in goal range. LR @125mL/hr currently running. Pending order to add D5W to fluids once BSGs in goal range. Insulin drip still running at a high rate. * She is receiving cefepime and vancomycin for leukocytosis, potential pneumonia or UTI. * Continue insulin drip at this time. Labs Q4H ordered. PLAN FOR INPATIENT GLYCEMIC CONTROL: * Hold outpatient oral medications * Transitioning off of insulin infusion at this time. Will begin correction factor of 30 mg/dl/unit and carb ratio of 1 unit per 10 grams of CHO. * Additional lantus dose up to 10 units to be given this PM per scale- reassess basal in AM
[2023-05-15] MEDS: INSULIN ASPART PER UNIT CHARGE SC SCH (17:46)
[2023-05-15] MEDS: PATIROMER CALCIUM SORBITEX 8.4 GM PACK PO ONE (17:46)
[2023-05-15] MEDS: MIRTAZAPINE TAB 15 MG TAB PO SCH (20:46)
[2023-05-16] MEDS: INSULIN ASPART PER UNIT CHARGE SC SCH (00:10)
[2023-05-16 04:48] LABS: Hematocrit (blood only) 26.3 % (37.0-47.0); Hemoglobin 8.9 g/dl (12.0-16.0); Mean Corpuscular Hgb Conc 33.8 g/dL (32.0-36.0); Mean Corpuscular Volume 91.6 fL (80.0-100.0); Mean Platelet Volume 11.5 fL (9.4-12.4); Nucleated RBC # (auto) 0.02 K/uL (0.00-0.12); Nucleated RBC % (auto) 0.1 %; Platelet Count 228 K/uL (130-400); RDW Coefficient of Variation 18.5 % (11.5-14.5); RDW Standard Deviation 61.3 fL (36.4-46.3); Red Blood Count 2.87 M/uL (4.20-5.40); White Blood Count 25.11 K/ul (4.8-10.8)
[2023-05-16 05:00] LABS: Albumin Globulin Ratio 0.8 (0.9-2); Albumin Level 2.2 gm/dl (3.4-5.0); BUN Creatinine Ratio 57.1 (10-20); Bilirubin,Total 0.4 mg/dl (0.2-1.0); Calcium 8.5 mg/dl (8.6-10.3); Creatinine Clr Calc Pharmacy 23.3 ml/min; Est GFR (African American) 34.6 ml/min; Est GFR (Non-African American) 29.9 ml/min; Globulin 2.8 gm/dl (2.5-4.0)
[2023-05-16 05:11] LABS: Basophils # (auto) 0.08 K/uL (0.00-0.20); Basophils % (auto) 0.3 %; Dohle Bodies 1+; Echinocytes 1+; Eosinophils # (auto) 0.04 K/uL (0.00-0.50); Eosinophils % (auto) 0.2 %; Immature Granulocytes # (auto) 0.84 K/uL (0.01-0.20); Immature Granulocytes % (auto) 3.3 %; Lymphocytes # (auto) 0.77 K/uL (1.20-3.40); Lymphocytes % (auto) 3.1 %; Monocytes # (auto) 0.44 K/uL (0.11-0.59); Monocytes % (auto) 1.8 %; Neutrophils # (auto) 22.94 K/uL (1.40-6.50); Neutrophils % (auto) 91.3 %
--- NOTE | 2023-05-16 08:42 | Hospitalist Progress Note ---
Date of Service May 16, 2023 Assessment & Plan (1) Bacteremia: Plan: Leukocytosis, febrile on admission, 3 of 3 blood cultures show Gr +, PCR staph, not mrsa gene-> pending echo, repeat cx 05/17/23 has significant cellulitis on left foot, concern if source or seeded, Lower extremity with fracture but no overlying warmth/erythema or crepitus Patient covered empirically with cefepime on admission. cultures mssa sensitive and changed to Cefazolin urine also growing E coli, sensitive to Cefazolin (2) DM type 2 (diabetes mellitus, type 2): Plan: HHS, HAGMA Insulin drip HHS protocol Initially with increased anion gap, decreased bicarb, VBG 7.25. Gap normalized following fluids, HHS protocol transition to basal bolus pharmacy glycemic management, hyperkalemia will give patiromer (3) JANICE (acute kidney injury): Plan: JANICE, hyperkalemia, improving, additional patiromer Baseline around 1.5, Improving with hydration (4) Dyspnea: Plan: By wells criteria score is 3, PE unlikely will have dvt prophylaxis cautiosly with acute blood loss anemia from femur fracture (5) Closed intertrochanteric fracture of left femur: Plan: Likely occurred 8 days prior to admission, ortho will repair once stable for anesthesia. CT demonstrate edema and hemorrhage associated with left hip fracture, soft tissue gas seen concern for MSSA bacteremia, will need to clear infection prior to surgical infection Orthopedics consulted (6) Anemia: Plan: Acute blood loss anemia, secondary to hip fracture CTA/P with no evidence of retroperitoneal hematoma Clinically improved on reassessment, hemoglobin trended Plan DVT prophylaxis: Pharmacal prophylaxis started cautiously CODE STATUS: DNR/DNI POLST is on file Admission and Anticipated Discharge Date Admission Date: May 14, 2023 Subjective pt is very ill and in pain with movement family updated at bedside pt has significant cellulitis to left foot, this is the affected side of fracture, CT did not show abscess, blood cultures are persistently positive Family is weighing the pros and cons of agressive care Physical Exam Physical Exam: pt is in pain has peripheral edema cellulitis and swelling to left foot with some blistering of skin and oozing Results & Data Results & Data Vital Signs (Past 12 Hours) Vital Signs Temp Pulse Pulse Resp BP BP Pulse Ox 05/16/23 08:28 98.4 F 69 18 92 05/16/23 07:59 82 05/16/23 06:12 05/16/23 06:11 79 05/16/23 05:24 98.1 F 77 20 120/67 90 05/16/23 02:00 94 H 28 H 93 05/16/23 01:11 99.3 F 113/54 L 92 05/16/23 01:11 83 23 92 05/16/23 01:00 87 22 92 05/16/23 00:00 91 H 22 93 05/15/23 23:11 99.3 F 116/46 L 05/15/23 23:11 84 21 93 05/15/23 23:00 84 26 H 92 05/15/23 22:15 85 05/15/23 22:00 79 20 92 05/15/23 21:11 77 19 92 05/15/23 21:11 112/65 05/15/23 21:00 85 22 92 O2 Del Method 05/16/23 08:28 Room Air 05/16/23 07:59 05/16/23 06:12 Room Air 05/16/23 06:11 05/16/23 05:24 Room Air 05/16/23 02:00 Room Air 05/16/23 01:11 Room Air 05/16/23 01:11 05/16/23 01:00 05/16/23 00:00 05/15/23 23:11 Room Air 05/15/23 23:11 05/15/23 23:00 05/15/23 22:15 05/15/23 22:00 05/15/23 21:11 05/15/23 21:11 05/15/23 21:00 Laboratory Results review cbc review chemistry PG Care Time/CCT Total # of Minutes Spent Total Time Spent with Patient: Total time spent is greater than 50% in coordination of care (as documented) at patient's floor/unit and/or counseling patient: Coding Level of Care Code 46301 SUB INP/OBS CARE 3/50MIN Diagnoses Bacteremia R78.81 DM type 2 (diabetes mellitus, type 2) E11.9 JANICE (acute kidney injury) N17.9 Dyspnea R06.00 Closed displaced intertrochanteric fracture of left femur, initial encounter S72.142A Encounter type: initial encounter Fracture alignment: displaced Anemia D64.9 (5) Closed intertrochanteric fracture of left femur Encounter type: initial encounter Fracture alignment: displaced Qualified Code(s): S72.142A - Displaced intertrochanteric fracture of left femur, initial encounter for closed fracture
[2023-05-16 09:07] LABS: C Reactive Protein 26.89 mg/dl (0-0.5)
[2023-05-16] MEDS: LANTUS PER UNIT CHARGE SC SCH (09:38)
--- NOTE | 2023-05-16 10:35 | Orthopedic Progress Note ---
Date of Service May 16, 2023 Assessment & Plan (1) Closed intertrochanteric fracture of left femur: Plan: She again has a displaced left hip intertrochanteric femur fracture. This will require surgical stabilization once she is cleared by medicine for surgery. She was transitioned out of the ICU yesterday, but she is still undergoing treatment for MSSA bacteremia. Internal medicine is recommending delaying surgery until her bacteremia is cleared. Admission and Anticipated Discharge Date Admission Date: May 14, 2023 Subjective Upon entering the room, the patient is asleep and appears to be resting comfortably. After she is awakened, she endorses severe bilateral hip and ankle pain. She has difficulty localizing her pain. Physical Exam Physical Exam: Examination bilateral lower extremities reveals fairly diffuse bilateral leg edema. The left thigh is slightly more swollen than the right, consistent with fracture. No signs of infection in the right hip/thigh area. No skin lacerations or abrasions. Diffuse hyperesthesias noted in bilateral lower extremities. Results & Data Vital Signs (Past 12 Hours) Vital Signs Temp Pulse Pulse Resp BP BP Pulse Ox 05/16/23 08:28 36.9 C 69 18 92 05/16/23 07:59 82 05/16/23 06:12 05/16/23 06:11 79 05/16/23 05:24 36.7 C 77 20 120/67 90 05/16/23 02:00 94 H 28 H 93 05/16/23 01:11 37.4 C 113/54 L 92 05/16/23 01:11 83 23 92 05/16/23 01:00 87 22 92 05/16/23 00:00 91 H 22 93 05/15/23 23:11 37.4 C 116/46 L 05/15/23 23:11 84 21 93 05/15/23 23:00 84 26 H 92 O2 Del Method 05/16/23 08:28 Room Air 05/16/23 07:59 05/16/23 06:12 Room Air 05/16/23 06:11 05/16/23 05:24 Room Air 05/16/23 02:00 Room Air 05/16/23 01:11 Room Air 05/16/23 01:11 05/16/23 01:00 05/16/23 00:00 05/15/23 23:11 Room Air 05/15/23 23:11 05/15/23 23:00 (1) Closed intertrochanteric fracture of left femur Encounter type: initial encounter Fracture alignment: displaced Qualified Code(s): S72.142A - Displaced intertrochanteric fracture of left femur, initial encounter for closed fracture
--- NOTE | 2023-05-16 11:21 | CT Scan Report ---
LEFT FOOT CT CT DOSE: 525.77 mGy.cm HISTORY: Left foot pain. eval for abscess, tenosynovitis TECHNIQUE: Multiaxial CT images of the left foot were performed and reformatted in the sagittal and c oronal plane without the use of contrast. A dose lowering technique was utilized adhering to the zion [place]. COMPARISON: Left lower leg CT 05/14/2023. 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 No acute fracture or di slocation within the left foot. No destructive changes to suggest an osteomyelitis. Extensive subcuta neous edema seen throughout the foot most pronounced within the dorsal foot. Probable tendinopathy wi thin the peroneus brevis. Otherwise, the flexor and extensor tendons are intact.. Probable tiny skin ulcerations at the medial aspect of the midfoot. This is best seen on axial image 101. No definite lo culated fluid collections to suggest an abscess. Plantar and posterior calcaneal spurs are noted. Mil [id number] osteoarthritis within the foot. IMPRESSION: 1. Extensive subcutaneous edema within the left foot. No definite loculated fluid collections to sugg est an abscess. 2. No fracture or dislocation within the left foot. 3. No evidence for osteomyelitis. 4. Probable tiny skin ulcerations of the medial aspect of the midfoot. 5. Additional findings as described above. ACT 112: Negative or not required by law. Electronically signed by: Saul Rojas M.D. 05/16/2023 11:19 AM
--- NOTE | 2023-05-16 14:29 | XCELERA ---
[id number]
--- NOTE | 2023-05-16 14:32 | Pharmacy Report ---
Pharmacy Glycemic Short Note 2 - Date of Service May 16, 2023 - Glycemic Short BSG Results (Last 24 hours): 05/15/23 05/15/23 05/15/23 14:58 16:09 20:23 Glucose POC Glucose 221 H 183 H 257 H 05/16/23 05/16/23 05/16/23 00:04 04:08 04:23 Glucose 226 H POC Glucose 232 H 223 H 05/16/23 05/16/23 08:07 11:51 Glucose POC Glucose 205 H 285 H OUTPATIENT ANTIDIABETIC REGIMEN: * Januvia 50 mg daily * Lantus 20 units SQ QPM * HbA1c 7.0% (03/02/23) ASSESSMENT: 05/15: * BSGs have been elevated after discontinuing insulin infusion. Continue to titrate up basal and novolog * Novolog parametres tightened to weight based stress of 3 * Lantus will increase an additional 20-30% today 05/14: * BSGs were stable overnight with insulin infusion. Anion gap closed this morning. Per polygraph examiner would like to transition off of insulin infusion * 20 units of lantus given this AM, dextrose removed from IVF, patient ordered diet but intake somewhat limited at this time * Will discontinue infusion after ~5 hours of overlap with lantus dose, resume novolog coverage with dinner 05/13 * Meri is a 77 YOF admitted with a femur fracture found to be in JANICE and HHS. She has a history of T2DM. Pharmacy has been consulted for glycemic management while inpatient. * She was acidotic with increased anion gap and decreased bicarbonate. BSG >500 on admission, Two IV regular boluses given with BSGs still elevated. She was started on an insulin drip at this time. Labs improving, BSGs still not in goal range. LR @125mL/hr currently running. Pending order to add D5W to fluids once BSGs in goal range. Insulin drip still running at a high rate. * She is receiving cefepime and vancomycin for leukocytosis, potential pneumonia or UTI. * Continue insulin drip at this time. Labs Q4H ordered. PLAN FOR INPATIENT GLYCEMIC CONTROL: * Hold outpatient oral medications * Basal Insulin * Lantus 30 units this AM * Additional 5/10 units per scale tonight * Bolus Insulin: Novolog ACHS * Goal range 110-140 mg/dL * Correction factor of 25 mg/dl/unit * Carb ratio of 1 unit per 8 grams of CHO.
[2023-05-16] MEDS: ceFAZolin 2000MG 2,000 MG/15 ML SYR IV SCH (15:49)
[2023-05-16] MEDS: LANTUS PER UNIT CHARGE SC ONE (21:17)
[2023-05-16] MEDS: HEPARIN SOD 5,000 UNIT/0.5 ML VIAL SQ SCH (21:18)
[2023-05-17] MEDS ORDERED: Nursing to Pharmacy Communication SCH (04:00)
[2023-05-17 04:13] LABS: Hematocrit (blood only) 26.4 % (37.0-47.0); Hemoglobin 8.5 g/dl (12.0-16.0); Mean Corpuscular Hemoglobin 30.5 pg (25.0-34.0); Mean Corpuscular Hgb Conc 32.2 g/dL (32.0-36.0); Mean Corpuscular Volume 94.6 fL (80.0-100.0); Mean Platelet Volume 11.3 fL (9.4-12.4); Nucleated RBC # (auto) 0.03 K/uL (0.00-0.12); Nucleated RBC % (auto) 0.1 %; Platelet Count 238 K/uL (130-400); RDW Coefficient of Variation 18.6 % (11.5-14.5); RDW Standard Deviation 63.8 fL (36.4-46.3); Red Blood Count 2.79 M/uL (4.20-5.40); White Blood Count 27.95 K/ul (4.8-10.8)
[2023-05-17 04:38] LABS: BUN Creatinine Ratio 59.2 (10-20); C Reactive Protein 27.13 mg/dl (0-0.5); Calcium 8.7 mg/dl (8.6-10.3); Creatinine Clr Calc Pharmacy 21.6 ml/min; Est GFR (African American) 30.9 ml/min; Est GFR (Non-African American) 26.7 ml/min; Magnesium 2.1 mg/dl (1.7-2.4); Phosphorus 4.3 mg/dl (2.5-4.9)
[2023-05-17 04:46] LABS: Basophils # (auto) 0.08 K/uL (0.00-0.20); Basophils % (auto) 0.3 %; Echinocytes 1+; Eosinophils # (auto) 0.08 K/uL (0.00-0.50); Eosinophils % (auto) 0.3 %; Immature Granulocytes # (auto) 1.29 K/uL (0.01-0.20); Immature Granulocytes % (auto) 4.6 %; Lymphocytes # (auto) 1.13 K/uL (1.20-3.40); Monocytes # (auto) 0.77 K/uL (0.11-0.59); Monocytes % (auto) 2.8 %; Polychromasia 1+
--- NOTE | 2023-05-17 11:13 | Communication Note ---
<Statement entered by Anderson Park M.D. - 05/17/23 17:31> New CT scan of the left hip obtained this morning was reviewed and the results discussed with Dr. Booth. There has been significant interval increase in the gas formation noted around the intertrochanteric fracture site and extending along the entirety of the femoral shaft distally. There is also gas noted tracking intrapelvic along the iliopsoas muscle. Some erosions are noted around the fracture site. This therefore raises the distinct possibility that this was actually a pathologic intertrochanteric fracture through an area of pre-existing abscess and osteomyelitis. With the worsening appearance on CT scan and worsening laboratory markers of WBC and CRP, this is very concerning for progressive infection despite antibiotic treatment. I think she will likely require an extensive irrigation and debridement surgery, possibly with antibiotic cement spacer placement around hardware to stabilize her intertrochanteric fracture. This is well beyond my scope of care. I would recommend transfer to a tertiary medical facility for further orthopedic surgical treatment. Date of Service: May 17, 2023 77-year-old female with history of Staph aureus bacteremia. Patient also with left comminuted intertrochanteric hip fracture and increased swelling of left foot. Patient's family has just arrived from [place]. Repeat blood cultures are still pending. Continued increased white count as well as C-reactive protein. CT scan of left hip with results below. Case discussed with Dr. Booth. Patient seen by Dr. Park in consult recently. Results of CT scan to be discussed with Dr. Park. CT of foot not showing any abscesses. Foot with swelling and mild erythema mostly over the dorsolateral portion involving 3-5 toes. Mild skin maceration over dorsum of a few toes with what appears to be decreasing swelling? Will await input from Dr. Park. IMPRESSION HIP CT SCAN LEFT HIP 1. There is again noted an intertrochanteric fracture within the proximal left femur. 2. Soft tissue gas both within and surrounding the left femoral fracture has sl ightly progressed which is concerning for underlying infection. 3. In addition, there are focal pockets of intramuscular soft tissue gas/fluid within the left proximal to mid anterior thigh with the dominant collection measuring 3.1 x 1.7 cm. These are concerning for intramuscular abscesses. 4. Possible bony erosion involving the fragments of the left femoral fracture which is new from the prior study and concerning for osteomyelitis. Therefore, this may represent a pathologic fracture. 5. Urgent surgical consultation recommended given the possibility of an underlying gas-forming organism. 6. Findings were discussed with Dr. Booth at 11:15 AM on 05/17/2023.
--- NOTE | 2023-05-17 11:19 | CT Scan Report ---
LEFT HIP CT CT DOSE: 768.89 mGy.cm HISTORY: Left hip pain. Fracture. eval for abscess TECHNIQUE: Multiaxial CT images of the left were performed and reformatted in the sagittal and chavez l plane without the use of contrast. A dose lowering technique was utilized adhering to the principl es of [place]. COMPARISON: Left femur 05/14/2023. FINDINGS: There is again noted a comminuted, mildly displaced, impacted intertrochanteric fracture wi thin the proximal left femur. This is similar to the prior study. No dislocation of the left femoral head. The visualized pelvic bones are intact. Soft tissue gas both within and surrounding the left fe moral fracture has slightly progressed. There is also a pocket of soft tissue gas/fluid within the le ft proximal to mid anterior thigh musculature. These appear loculated with the dominant collection on image 354 within the mid thigh measuring 3.1 x 1.7 cm. Findings are concerning for an underlying inf ection with developing intramuscular abscesses within the quadriceps muscles. Subcutaneous edema/cont usion again noted within the left lateral hip/thigh. Small focus of gas is seen adjacent to the iliop soas tendon, unchanged. No significant left hip effusion. There is possible bony erosion involving th e fragments of the femoral fracture best seen on coronal image 49. This is new from the prior study a nd is concerning for an osteomyelitis. Therefore, this possibility of a pathologic fracture. IMPRESSION: 1. There is again noted an intertrochanteric fracture within the proximal left femur. 2. Soft tissue gas both within and surrounding the left femoral fracture has slightly progressed whic h is concerning for underlying infection. 3. In addition, there are focal pockets of intramuscular soft tissue gas/fluid within the left proxim al to mid anterior thigh with the dominant collection measuring 3.1 x 1.7 cm. These are concerning fo r intramuscular abscesses. 4. Possible bony erosion involving the fragments of the left femoral fracture which is new from the p rior study and concerning for osteomyelitis. Therefore, this may represent a pathologic fracture. 5. Urgent surgical consultation recommended given the possibility of an underlying gas-forming organi sm. 6. Findings were discussed with Dr. Booth at 11:15 AM on 05/17/2023. ACT 112: Negative or not required by law. Electronically signed by: Saul Rojas M.D. 05/17/2023 11:16 AM
[2023-05-17] MEDS ORDERED: ONDANSETRON INJ 2 MG/ML 2 ML VIAL IV PRN (11:54)
[2023-05-17] MEDS: ONDANSETRON INJ 2 MG/ML 2 ML VIAL IV STA (12:33)
[2023-05-17] MEDS: LACTATED RINGER'S 1,000 ML IV SCH (14:14)
--- NOTE | 2023-05-17 16:08 | Infectious Disease Consult ---
Date of Consultation May 17, 2023 Assessment & Plan (1) MSSA bacteremia: (2) Osteomyelitis of hip: (3) Closed intertrochanteric fracture of left femur: (4) Acute kidney injury superimposed on CKD: Plan 77yo F with h/o CKD, Parkinsonism, mild dementia, asthma who presented from [facility] on 05/13 with worsening left hip pain, JANICE, and feeling unwell after sustaining multiple falls 8 days prior to admission. She has also had SOB since Wednesday. On admission, she was febrile to 38 (afebrile since). Initial labs WBC up to 28.38>>27.95. Cr up to 2.9>>1.79. Glucose 500s. AST 200, ALT 166, both downtrending. Trop elevated. CRP 26.89. PCT 8.15. UA with > 30 WBC. CXR negative. XR L hip with acutely mildly displaced angulated intertrochanteric fracture of the left femur. LLE doppler negative. L ankle XR negative for acute fracture. CTAP w/o IV with asymmetric thickening within proximal left thigh musculature including left adductor muscles and left iliacus muscle with surrounding soft tissue gas representing edema/hemorrhage, left hip intertrochanteric fracture. CT femur showed soft tissue gas within left hip likely due to posttraumatic changes. She was found to be in DKA and admitted to the ICU. She was seen by orthopedics for the left femur fracture and planned for surgical fixation once she is medically stable. Given fevers and leukocytosis, she was also started on empiric abx. She was downgraded on 05/14. BCX returned positive for MSSA. TTE negative for vegetations. Course c/b redness on her left foot, so left foot CT done which showed extensive subcutaneous edema in left foot, no loculated fluid collections, no fracture or OM. Course also notable for worsening WBC. Left hip CT done on 05/16 showed soft tissue gas slightly progressed c/f underlying infection, focal pockets of intramuscular soft tissue gas/fluid measuring 3.1 x 1.7cm c/f intramuscular abscesses, possible bony erosion involving fragments of left femoral fracture which is new from prior study c/f OM, this may represent pathologic fracture. ID consulted 05/16. Patient with findings of OM and intramuscular abscess in left hip along with MSSA bacteremia. Will wait for surgical input regarding debridement as this will be helpful in controlling infection. No hardware should be placed in infected bone/hip. # MSSA bacteremia # Left hip OM of femoral fracture # Left hip intramuscular abscesses # T2DM, HHS - resolved # JANICE improving # Transaminiitis downtrending - repeat 2 sets of BCx q24-48 hours until negative - continue on cefazolin 2g IV q12h (renally dosed, CrCl 21) - will f/u on surgical input - would ideally pursue debridement (ie of osteomyelitis and abscesses) if this can be safely done - no hardware until bacteremia clears and no hardware in infected bone until she completes adequate treatment ID will continue to follow. If questions or concerns, contact Infectious Disease Call Center . Yuliana Hernandez MD [facility], Division of Infectious Diseases [facility]: [phone] Consultation Information Consultation was provided via telemedicine using two-way real-time interactive telecommunication between the patient and the telemedicine provider. For the duration of the visit, the provider was performing the assessment from a different facility than the patient. This includesuse of bluetooth stethoscope forauscultationperformed by the telepresenter that the telemedicine provider can hear if described in the physical exam. Back Hoe Operator contact information: Please call [facility] Call Center . (Phone Number For Physician Use Only) After establishing a telemedicine visit, patient was: Patient was verified with two unique identifiers, Patient/authorized rep acknowledged consent and understanding and Gave permission to continue telehealth session Time Spent with Patient: Initial => 75 min History of Present Illness Reason for Consultation: staph bacteremia and hip OM Attending Physician: Alejo Booth MD History of Present Illness 77yo F with h/o CKD, Parkinsonism, mild dementia, asthma who presented from [facility] on 05/13 with hip pain, JANICE, and feeling unwell. Patient had a multiple falls 8 days prior to admission, possibly in setting of slipping on talcum powder. She had a left ankle xray as an outpatient that was reportedly normal. She was had pain, but was still ambulating up until 2 days prior when sh duke had severe progressively worsening pain in her left hip and noted that her entire left leg hurts now. She has also had SOB since Wednesday. She reported pain in both hips and left leg. She has had decreased PO intake as well. On admission, she was febrile to 38 (afebrile since). Initial labs WBC up to 28.38>>27.95. Cr up to 2.9>>1.79. Glucose 500s. AST 200, ALT 166, both downtrending. Trop elevated. CRP 26.89. PCT 8.15. UA with > 30 WBC. CXR negative. XR L hip with acutely mildly displaced angulated intertrochanteric fracture of the left femur. LLE doppler negative. L ankle XR negative for acute fracture. CTAP w/o IV with asymmetric thickening within proximal left thigh musculature including left adductor muscles and left iliacus muscle with surrounding soft tissue gas representing edema/hemorrhage, left hip intertrochanteric fracture. CT femur showed soft tissue gas within left hip likely due to posttraumatic changes. She was found to be in DKA and admitted to the ICU. She was seen by orthopedics for the left femur fracture and planned for surgical fixation once she is medically stable. Given fevers and leukocytosis, she was also started on empiric abx. She was downgraded on 05/14. BCX returned positive for MSSA. TTE negative for vegetations. Course c/b redness on her left foot, so left foot CT done which showed extensive subcutaneous edema in left foot, no loculated fluid collections, no fracture or OM. Course also notable for worsening WBC. Left hip CT done on 05/16 showed soft tissue gas slightly progressed c/f underlying infection, focal pockets of intramuscular soft tissue gas/fluid measuring 3.1 x 1.7cm c/f intramuscular abscesses, possible bony erosion involving fragments of left femoral fracture which is new from prior study c/f OM, this may represent pathologic fracture. ID consulted 05/16. On evaluation, history is limited. Patient complaining of pain in her legs. When asked about pain else where she says she has pain everywhere. Allergies Allergy/AdvReac Type Severity Reaction Status Date / Time No Known Drug Allergies Allergy Unknown Verified 12/18/22 02:05 Home Medications Medication Instructions Recorded Confirmed Type pen needle, diabetic 31 gauge x #30 ea 10/03/18 12/04/22 History 07/14" (BD Ultra-Fine Short Pen Needle) albuterol sulfate 90 mcg/actuation 2 inh inhalation Q4H PRN shortness 12/24/20 05/14/23 Rx aerosol inhaler (ProAir HFA) of breath or wheezing #8.5 grams Wheeled Walker #1 ea 01/10/21 05/14/23 Rx blood sugar diagnostic (Contour #400 ea 03/10/21 12/04/22 Rx Next Test Strips) amlodipine 5 mg tablet 5 mg PO QAM #90 tabs 03/19/21 05/14/23 Rx sitagliptin phosphate 50 mg tablet 50 mg PO DAILY #30 tabs 08/29/21 05/14/23 Rx (Januvia) pen needle,diabetic dual safty 30 #100 ea 11/13/21 12/04/22 Rx gauge x 3/16" (BD AutoShield Duo Pen Needle) lancets 33 gauge (Forks 1 #100 ea 12/16/21 12/04/22 Rx Lancets) donepezil 10 mg tablet 10 mg PO DAILY #90 tabs 12/18/21 05/14/23 Rx omeprazole 20 mg capsule,delayed 20 mg PO QAM #90 caps 01/14/22 05/14/23 Rx release atorvastatin 40 mg tablet 40 mg PO HS 06/16/22 05/14/23 History acetaminophen 325 mg capsule 650 mg PO Q6H PRN temp>101 12/18/22 05/14/23 History acetaminophen 325 mg tablet 650 mg PO Q12 muscle weakness 12/18/22 05/14/23 History (Tylenol) dextran 70-hypromellose eye drops 1 drp OPB QID 12/18/22 05/14/23 History in a dropperette (Artificial Tears (PF) drops in a dropperette) ezetimibe 10 mg tablet 10 mg PO HS 12/18/22 05/14/23 History levothyroxine 88 mcg tablet 88 mcg PO DAILY 12/18/22 05/14/23 History uciyaxny-rmuy-euto 8 mg-folic 400 1 tab PO DAILY 12/18/22 05/14/23 History mcg-K 50 mcg-lutein 300 mcg tablet (Centrum Silver Women) omega-3s 300 yr-lkc-qnq-other 1 cap PO DAILY 12/18/22 05/14/23 History drntf6d-imaa oil 1,000 mg capsule ([place]-3 Fish Oil) ondansetron HCl 4 mg tablet 4 mg PO Q6 PRN Nausea And Vomiting 12/18/22 05/14/23 History tramadol 50 mg tablet 50 mg PO Q8 PRN Pain and swelling 12/18/22 05/14/23 History aspirin 81 mg tablet,delayed 81 mg PO QAM #60 tabs 12/26/22 05/14/23 Rx release acetaminophen 325 mg tablet 650 mg PO Q12 PRN Pain 05/14/23 05/14/23 History ammonium lactate 12 % topical cream 1 applic topical BID 05/14/23 05/14/23 History cholecalciferol (vitamin D3) 25 25 mcg PO DAILY 05/14/23 05/14/23 History mcg (1,000 unit) tablet (Vitamin D3) diclofenac sodium 1 % topical gel 1 ea topical TID 05/14/23 05/14/23 History fluticasone 100 mcg-salmeterol 50 1 inh inhalation Q12H 05/14/23 05/14/23 History mcg/dose blistr powdr for inhalation (Advair Diskus) insulin glargine 100 unit/mL 20 unit subcut HS 05/14/23 05/14/23 History subcutaneous solution (Lantus U-100 Insulin) ipratropium 0.5 mg-albuterol 3 mg 3 ml inhalation .EVERY 6 HOURS PRN 05/14/23 05/14/23 History (2.5 mg base)/3 mL nebulization Shortness Of Breath Or Wheezing soln ipratropium 0.5 mg-albuterol 3 mg 3 ml inhalation Q8H PRN Shortness 05/14/23 05/14/23 History (2.5 mg base)/3 mL nebulization Of Breath Or Wheezing soln lisinopril 40 mg tablet 20 mg PO QAM 05/14/23 05/14/23 History mirtazapine 7.5 mg tablet 7.5 mg PO HS 05/14/23 05/14/23 History polyethylene glycol 3350 17 17 g PO DAILY 05/14/23 05/14/23 History gram/dose oral powder (Miralax) primidone 50 mg tablet 50 mg PO DAILY 05/14/23 05/14/23 History sertraline 100 mg tablet 150 mg PO DAILY 05/14/23 05/14/23 History Patient History Medical History Stage 3b chronic kidney disease Acute hyponatremia Hypertension Anemia Back pain Benign colonic polyp DM type 2 (diabetes mellitus, type 2) GERD without esophagitis History of aspiration pneumonia History of fall Hyperlipidemia Hypothyroidism Muscle weakness Venous insufficiency Mental retardation Bronchitis COPD exacerbation Asthma Surgical History Recent surgical procedure on lower extremity left leg and ankle surgery History of foot surgery History of section History of oral surgery History of cataract surgery Family History Mother Diabetes type 2 Cardiac murmur Hypertension Asthma Father Bone cancer Social History Smoking Status: Never smoker Second Hand Exposure: No; Do You Dip or Chew Tobacco: No; Hx Alcohol Use: No Hx Substance Use: No Preferred Language: Trinidadian Communication Ability: Impaired Visual Impairment: No Limitations Hearing Ability: Normal Gastroenterologist Required: No Beliefs That Will Affect Care: None marital status: Single Current Living Situation: [facility] Current Living Situation Comment: [facility] current occupational status: disabled Feels Safe at Home: Yes Safety Concerns: Feels Safe At This Time Childhood Exposure to Second-Hand Smoke: No Seatbelt Use: always Assistive Devices: Hospital Bed and Wheelchair Review of System Limited due to poor historian and c/o pain, as per HPI Physical Exam Physical Exam: General: Awake, complaining of pain HEENT: mmm Neck: supple Lungs: respirations non-labored Heart: nl peripheral perfusion Abdomen: soft, c/o pain with palpation Ext: bl LE edema, left hip very tender, left foot with erythema of lateral toes Skin: as above Neuro: alert Results & Data Vital Signs (Past 12 Hours) Vital Signs Temp Pulse Pulse Resp BP Pulse Ox O2 Del Method 05/17/23 15:53 36.6 C 86 20 119/62 96 Nasal Cannula 05/17/23 15:00 89 05/17/23 11:53 Room Air 05/17/23 11:48 36.7 C 92 H 18 113/64 92 Room Air 05/17/23 07:30 92 H 05/17/23 07:24 36.5 C 79 18 101/51 L 95 Room Air O2 Flow Rate 05/17/23 15:53 2 05/17/23 15:00 05/17/23 11:53 05/17/23 11:48 05/17/23 07:30 05/17/23 07:24 Laboratory Results labs reviewed Diagnostic Findings Imaging reviewed (3) Closed intertrochanteric fracture of left femur Encounter type: initial encounter Fracture alignment: displaced Qualified Code(s): S72.142A - Displaced intertrochanteric fracture of left femur, initial encounter for closed fracture
--- NOTE | 2023-05-17 17:14 | Hospitalist Progress Note ---
Date of Service May 17, 2023 Assessment & Plan (1) Bacteremia: Plan: Leukocytosis, febrile on admission, 3 of 3 blood cultures show Gr +, PCR staph, not mrsa gene-> no vegetations seen on transthoracic echo, repeat cx 05/17/23 has significant cellulitis on left foot, concern if source or seeded, Lower extremity with fracture but no overlying warmth/erythema or crepitus Patient covered empirically with cefepime on admission. cultures mssa sensitive and changed to Cefazolin persistent pain and leukocytosis, repeat CT hip 05/18/23 Soft tissue gas both within and surrounding the left femoral fracture has slightly progressed which is concerning for underlying infection. focal pockets of intramuscular soft tissue gas/fluid within the left proximal to mid anterior thigh with the dominant collection measuring 3.1 x 1.7 cm. These are concerning for intramuscular abscesses. Possible bony erosion involving the fragments of the left femoral fracture which is new from the prior study and concerning for osteomyelitis. Therefore, this may represent a pathologic fracture with the concern for progression and finding gas progression in the tissue, will change to clindamycin, which the staph is sensitive to also . ID consult pending final recommendations on IR aspiration of hip Ortho recommends transfer to tertiary care center for drainage and antibiotic spacer, concern for pathological fracture possible from pre existing infection urine also growing E coli, (2) DM type 2 (diabetes mellitus, type 2): Plan: HHS, HAGMA Insulin drip HHS protocol Initially with increased anion gap, decreased bicarb, VBG 7.25. Gap normalized following fluids, HHS protocol transition to basal bolus pharmacy glycemic management, hyperkalemia improved patiromer (3) JANICE (acute kidney injury): Plan: JANICE, hyperkalemia, improving, additional patiromer Baseline around 1.5, continue with hydration (4) Dyspnea: Plan: By wells criteria score is 3, PE unlikely will have dvt prophylaxis cautiosly with acute blood loss anemia from femur fracture (5) Closed intertrochanteric fracture of left femur: Plan: unclear exact timeline, did have falls prior to admission,in light of CT of hip from 05/18/23, could be infection pre existing and weakening femur, leading to pathological fracture Surgery recommends transfer to consider wash out and bone debridement. -Family is not sure of what course to pursue, however with surgical intervention or prolonged antibiotics this pt will be non weight bearing and tender to sitting for approximately 3-6 months Pain control is an issue on 05/18/23, will add parenteral tylenol and toradol (6) Anemia: Plan: Acute blood loss anemia, secondary to hip fracture CTA/P with no evidence of retroperitoneal hematoma Clinically improved on reassessment, hemoglobin trended Plan DVT prophylaxis: Pharmacal prophylaxis started cautiously CODE STATUS: DNR/DNI POLST is on file Admission and Anticipated Discharge Date Admission Date: May 14, 2023 Subjective pt is very ill and in pain with movement family updated at bedside prolonged discussions were had today trying to determine direction of care given concern for abscess perhaps even preceding the fracture causing a pathological fracture. Repeat CT scan concern for osteomyelitis of bone. Discussions regarding transfer to tertiary center. pt has significant cellulitis to left foot, this is the affected side of fracture, CT did not show abscess, blood cultures are persistently positive foot has improved with cefazolin dosing Family is weighing the pros and cons of aggressive care Physical Exam Physical Exam: pt is in significant pain has peripheral edema, hand swelling is improved. cellulitis and swelling to left foot with some blistering of skin erythema has receded over the last 24 hours Results & Data Results & Data Vital Signs (Past 12 Hours) Vital Signs Temp Pulse Pulse Resp BP Pulse Ox O2 Del Method 05/17/23 15:53 97.9 F 86 20 119/62 96 Nasal Cannula 05/17/23 15:00 89 05/17/23 11:53 Room Air 05/17/23 11:48 98.1 F 92 H 18 113/64 92 Room Air 05/17/23 07:30 92 H 05/17/23 07:24 97.7 F 79 18 101/51 L 95 Room Air O2 Flow Rate 05/17/23 15:53 2 05/17/23 15:00 05/17/23 11:53 05/17/23 11:48 05/17/23 07:30 05/17/23 07:24 PG Care Time/CCT Total # of Minutes Spent Total Time Spent with Patient: Total time spent is greater than 50% in coordination of care (as documented) at patient's floor/unit and/or counseling patient: Coding Level of Care Code 32735 SUB INP/OBS CARE 3/50MIN Diagnoses Bacteremia R78.81 DM type 2 (diabetes mellitus, type 2) E11.9 JANICE (acute kidney injury) N17.9 Dyspnea R06.00 Closed displaced intertrochanteric fracture of left femur, initial encounter S72.142A Encounter type: initial encounter Fracture alignment: displaced Anemia D64.9 (5) Closed intertrochanteric fracture of left femur Encounter type: initial encounter Fracture alignment: displaced Qualified Code(s): S72.142A - Displaced intertrochanteric fracture of left femur, initial encounter for closed fracture
[2023-05-17] MEDS: CLINDAMYCIN/D5W 900 MG/50 ML BAG IV SCH (18:41)
--- NOTE | 2023-05-17 19:39 | Hospitalist Progress Note ---
Date of Service May 17, 2023 Assessment & Plan (1) Bacteremia: Plan: Leukocytosis, febrile on admission, 3 of 3 blood cultures show Gr +, PCR staph, not mrsa gene-> no vegetations seen on transthoracic echo, repeat cx 05/17/23 has significant cellulitis on left foot, concern if source or seeded, Lower extremity with fracture but no overlying warmth/erythema or crepitus Patient covered empirically with cefepime on admission. cultures mssa sensitive and changed to Cefazolin persistent pain and leukocytosis, repeat CT hip 05/18/23 Soft tissue gas both within and surrounding the left femoral fracture has slightly progressed which is concerning for underlying infection. focal pockets of intramuscular soft tissue gas/fluid within the left proximal to mid anterior thigh with the dominant collection measuring 3.1 x 1.7 cm. These are concerning for intramuscular abscesses. Possible bony erosion involving the fragments of the left femoral fracture which is new from the prior study and concerning for osteomyelitis. Therefore, this may represent a pathologic fracture with the concern for progression and finding gas progression in the tissue, will change to clindamycin, which the staph is sensitive to also . ID consult pending final recommendations on IR aspiration of hip Ortho recommends transfer to tertiary care center for drainage and antibiotic spacer, concern for pathological fracture possible from pre existing infection *Sepsis due to Methicillin susceptible Staphylococcus aureus, POA urine also growing E coli, (2) DM type 2 (diabetes mellitus, type 2): Plan: HHS, HAGMA Insulin drip HHS protocol Initially with increased anion gap, decreased bicarb, VBG 7.25. Gap normalized following fluids, HHS protocol transition to basal bolus pharmacy glycemic management, hyperkalemia improved patiromer (3) JANICE (acute kidney injury): Plan: JANICE, hyperkalemia, improving, additional patiromer Baseline around 1.5, continue with hydration (4) Dyspnea: Plan: By wells criteria score is 3, PE unlikely will have dvt prophylaxis cautiosly with acute blood loss anemia from femur fracture (5) Closed intertrochanteric fracture of left femur: Plan: unclear exact timeline, did have falls prior to admission,in light of CT of hip from 05/18/23, could be infection pre existing and weakening femur, leading to pathological fracture Surgery recommends transfer to consider wash out and bone debridement. -Family is not sure of what course to pursue, however with surgical intervention or prolonged antibiotics this pt will be non weight bearing and tender to sitting for approximately 3-6 months Pain control is an issue on 05/18/23, will add parenteral tylenol and toradol (6) Anemia: Plan: Acute blood loss anemia, secondary to hip fracture CTA/P with no evidence of retroperitoneal hematoma Clinically improved on reassessment, hemoglobin trended Plan DVT prophylaxis: Pharmacal prophylaxis started cautiously CODE STATUS: DNR/DNI POLST is on file Admission and Anticipated Discharge Date Admission Date: May 14, 2023 Results & Data Results & Data Vital Signs (Past 12 Hours) Vital Signs Temp Pulse Pulse Resp BP Pulse Ox O2 Del Method 05/17/23 19:26 98.2 F 80 20 108/49 L 98 Nasal Cannula 05/17/23 15:53 97.9 F 86 20 119/62 96 Nasal Cannula 05/17/23 15:00 89 05/17/23 11:53 Room Air 05/17/23 11:48 98.1 F 92 H 18 113/64 92 Room Air O2 Flow Rate 05/17/23 19:26 2 05/17/23 15:53 2 05/17/23 15:00 05/17/23 11:53 05/17/23 11:48 PG Care Time/CCT Total # of Minutes Spent Total Time Spent with Patient: Total time spent is greater than 50% in coordination of care (as documented) at patient's floor/unit and/or counseling patient: Coding Level of Care Code None Diagnoses Bacteremia R78.81 DM type 2 (diabetes mellitus, type 2) E11.9 JANICE (acute kidney injury) N17.9 Dyspnea R06.00 Closed displaced intertrochanteric fracture of left femur, initial encounter S72.142A Encounter type: initial encounter Fracture alignment: displaced Anemia D64.9 (5) Closed intertrochanteric fracture of left femur Encounter type: initial encounter Fracture alignment: displaced Qualified Code(s): S72.142A - Displaced intertrochanteric fracture of left femur, initial encounter for closed fracture
[2023-05-17] MEDS: LANTUS PER UNIT CHARGE SC SCH (20:54)
[2023-05-18] MEDS: ACETAMINOPHEN 1,000 MG/100 ML VIAL IV PRN (01:17)
[2023-05-18] MEDS: KETOROLAC TROMETHAMINE 15 MG/ML VIAL IV PRN (06:14)
[2023-05-18 06:57] LABS: BUN Creatinine Ratio 61.3 (10-20); C Reactive Protein 24.52 mg/dl (0-0.5); Calcium 8.6 mg/dl (8.6-10.3); Est GFR (African American) 32.2 ml/min; Est GFR (Non-African American) 27.8 ml/min; Magnesium 2.2 mg/dl (1.7-2.4); Potassium 5.2 mmol/L (3.5-5.1)
[2023-05-18] MEDS: DEXTROSE 50% 50 ML SYRINGE IV PRN (08:11)
[2023-05-18 09:37] LABS: Hematocrit (blood only) 25.2 % (37.0-47.0); Hemoglobin 7.8 g/dl (12.0-16.0); Mean Corpuscular Hemoglobin 30.5 pg (25.0-34.0); Mean Corpuscular Volume 98.4 fL (80.0-100.0); Mean Platelet Volume 11.6 fL (9.4-12.4); Nucleated RBC # (auto) 0.02 K/uL (0.00-0.12); Nucleated RBC % (auto) 0.1 %; Platelet Count 218 K/uL (130-400); RDW Coefficient of Variation 18.7 % (11.5-14.5); RDW Standard Deviation 67.6 fL (36.4-46.3); Red Blood Count 2.56 M/uL (4.20-5.40); White Blood Count 23.72 K/ul (4.8-10.8)
[2023-05-18 09:59] LABS: Acanthocytes 1+; Basophilic Stippling 1+; Basophils # (auto) 0.06 K/uL (0.00-0.20); Basophils % (auto) 0.3 %; Echinocytes 1+; Eosinophils # (auto) 0.17 K/uL (0.00-0.50); Eosinophils % (auto) 0.7 %; Immature Granulocytes # (auto) 1.31 K/uL (0.01-0.20); Immature Granulocytes % (auto) 5.5 %; Lymphocytes # (auto) 1.37 K/uL (1.20-3.40); Lymphocytes % (auto) 5.8 %; Macrocytosis Present; Monocytes # (auto) 0.84 K/uL (0.11-0.59); Monocytes % (auto) 3.5 %; Neutrophils # (auto) 19.97 K/uL (1.40-6.50); Neutrophils % (auto) 84.2 %; Polychromasia 1+; Target Cells 1+; Toxic Granulation 1+
[2023-05-18] MEDS ORDERED: HYDROmorphone INJ 2 MG/ML SYR/VIAL IV PRN ×2 (09:59→10:01)
[2023-05-18] MEDS: HYDROmorphone INJ 1 MG/ML SYRINGE IV STA (10:15)
--- NOTE | 2023-05-18 10:28 | XRay Report ---
XR chest 1V portable HISTORY: Shortness of breath. eval pneumonia COMPARISON: Chest 05/15/2023. FINDINGS: No pneumothorax. No pleural effusions. The cardiac silhouette is enlarged. This has increas ed in size. Linear scarlike density again noted within the right midlung zone. Perihilar interstitial /vascular thickening has progressed consistent with pulmonary edema. No acute fractures. Degenerative changes within the shoulders. IMPRESSION: Interval progression of the cardiomegaly and mild to moderate pulmonary edema. ACT 112: Negative or not required by law. Electronically signed by: Saul Rojas M.D. 05/18/2023 10:27 AM
[2023-05-18] MEDS: HYDROmorphone INJ 1 MG/ML SYRINGE IV PRN ×2 (11:44→17:38)
[2023-05-18] MEDS ORDERED: ONDANSETRON 4 MG OD TAB SL PRN (13:10)
[2023-05-18] MEDS ORDERED: ONDANSETRON INJ 2 MG/ML 2 ML VIAL IV PRN (13:10)
[2023-05-18] MEDS ORDERED: GLYCOPYRROLATE 0.2 MG/ML VIAL IV PRN (13:10)
[2023-05-18] MEDS ORDERED: ACETAMINOPHEN 650 MG SUPP PR PRN (13:10)
[2023-05-18] MEDS ORDERED: PROMETHAZINE HCL 12.5 MG in SODIUM CHLORIDE 0.9% 50 ML IV PRN (13:10)
[2023-05-18] MEDS ORDERED: ATROPINE SULFATE 1% OP SOLN 5 ML BTL SL PRN (13:10)
[2023-05-18] MEDS ORDERED: LORazepam 0.5 MG TAB PO PRN (13:10)
[2023-05-18] MEDS ORDERED: LORazepam 0.5 MG in SYRINGE 0.25 ML IV PRN (13:10)
--- NOTE | 2023-05-18 13:11 | Pharmacy Report ---
Pharmacy Glycemic Short Note 2 - Date of Service May 18, 2023 - Glycemic Short BSG Results (Last 24 hours): 05/17/23 05/17/23 05/18/23 15:56 20:17 06:00 Glucose 62 L POC Glucose 90 93 05/18/23 05/18/23 05/18/23 07:33 07:36 08:04 Glucose POC Glucose 65 L* 61 L* 69 L* 05/18/23 05/18/23 08:29 12:28 Glucose POC Glucose 159 H 146 H OUTPATIENT ANTIDIABETIC REGIMEN: * Januvia 50 mg PO daily * Lantus 20 units SC PM * HbA1c 7.0% (03/02/23) ASSESSMENT: 05/17: * Meri received 39 units of insulin yesterday, 30 basal + 9 bolus. BSGs were: 640-021-72-93 mg/dL. * Patient was hypoglycemic at 61 mg/dL this AM. Shakiness reported. Likely due to basal overload in the setting of poor PO intake recently. Required 1/2 amp of D50W to bring BSG up to 159 mg/dL. * Patient still not eating much today. Held AM basal dose. Will transition back to HS basal dosing to match home regimen. Will likely cut basal dose in half from yesterday. Loosened bolus regimen as well to prevent further hypoglycemia if patient starts to eat. 05/15: * BSGs have been elevated after discontinuing insulin infusion. Continue to titrate up basal and novolog * Novolog parametres tightened to weight based stress of 3 * Lantus will increase an additional 20-30% today 05/14: * BSGs were stable overnight with insulin infusion. Anion gap closed this morning. Per passenger coach driver would like to transition off of insulin infusion * 20 units of lantus given this AM, dextrose removed from IVF, patient ordered diet but intake somewhat limited at this time * Will discontinue infusion after ~5 hours of overlap with lantus dose, resume novolog coverage with dinner 05/13: * Meri is a 77 YOF admitted with a femur fracture found to be in JANICE and HHS. She has a history of T2DM. Pharmacy has been consulted for glycemic management while inpatient. * She was acidotic with increased anion gap and decreased bicarbonate. BSG >500 on admission, Two IV regular boluses given with BSGs still elevated. She was started on an insulin drip at this time. Labs improving, BSGs still not in goal range. LR @125mL/hr currently running. Pending order to add D5W to fluids once BSGs in goal range. Insulin drip still running at a high rate. * She is receiving cefepime and vancomycin for leukocytosis, potential pneumonia or UTI. * Continue insulin drip at this time. Labs Q4H ordered. PLAN FOR INPATIENT GLYCEMIC CONTROL: * Hold outpatient oral medications * Basal Insulin * Lantus 15 units SC HS * Bolus Insulin: Novolog ACHS * Goal range 110-140 mg/dL * Correction factor of 25 mg/dl/unit * Carb ratio of 1 unit per 8 grams of CHO.
--- NOTE | 2023-05-18 13:33 | Ultrasound Report ---
Ultrasound-guided left hip fluid collection aspiration INDICATION: Left hip/thigh fluid collection suspicious for abscess PROCEDURE: Procedure and risks were explained. Informed consent was obtained. A final timeout was com pleted. The left hip was prepped and draped in sterile fashion. 1% buffered lidocaine was utilized fo r skin anesthesia. Utilizing ultrasound guidance, an 18-gauge 10 cm Chiba needle was advanced into the complex left hip fluid collection. Ultrasound images were obtained. 4 mL of thick purulent fluid was aspirated and sen t to lab for culture analysis. The needle was removed and Band-Aid applied. The patient tolerated the procedure well. IMPRESSION: Ultrasound-guided left hip fluid collection aspiration as above. Performed, dictated, and signed by Jose Jennings PA-C; to be co-signed by Dr. Saul Rojas. Electronically signed by: Saul Rojas M.D. 05/18/2023 1:45 PM
--- NOTE | 2023-05-18 13:40 | Palliative Care Consultation ---
Date of Consultation May 18, 2023 Assessment & Plan (1) Dyspnea and respiratory abnormalities: (2) Weakness generalized: (3) Left hip pain: (4) Discussion about advance care planning held with family member: telephonic ACP with sister and OLIVIA, Robert x 20min reviewed clinical events, Robert reaffirms family desire RISK MANAGEMENT CONSULTANT we discussed my evaluation and I advised I feel Meri is in a fair amount of pain - she is grimacing, crying out and moaning a lot. We discussed med changes and she was in agreement to improve her pain. I have added scheduled dilaudid in addition to modifying dilaudid prn doses goal is comfort short anticipated survival given septic shock, OM, etc I advised i did not feel she would survive to dc (5) Palliative care by specialist: Met with pt/family. Provided overview of Palliative Medicine, a subspecialty that provides specialized medical care for people living with a serious illness by offering a focus on quality of life. Palliative Medicine is often conflated with hospice: I advised patient/family that Palliative and hospice can be partners but we are not the same. It is important to understand the difference so that we may be informed, and not afraid. Palliative Medicine works to improve QOL through reduction of symptom burden/more control over their illness, for both the patient and family. Palliative medicine clinicians are board certified, specially-trained and another member of the patient's medical care team. We often provide an extra layer of support because our care is based on the needs of the patient, not the prognosis; as such, it's appropriate at any age/advancing stage of a serious illness and can be provided along with curative treatment. Palliative Medicine clinicians are also trained in advanced communication methodologies, to facilitate complex discussions about advanced illness planning, which are needed to help assure that the treatment choices match the patient's goals, aka delivering Goal Concordant care. Finally, we discussed that hospice is a visiting nurse service that focuses on care delivered at the very end of life for patients with terminal illness, with life expectancy less than 6 month. (6) Encounter for end of life care: (7) Osteomyelitis of hip: (8) MSSA bacteremia: (9) Acute kidney injury superimposed on CKD: (10) Metabolic encephalopathy: (11) Closed intertrochanteric fracture of left femur: Encounter type: initial encounter Fracture alignment: displaced Qualified Code(s): S72.142A - Displaced intertrochanteric fracture of left femur, initial encounter for closed fracture Plan * Pain meds modified as follows: Dilaudid 0.5mg Q15min IV prn mild - mod pain Dilaudid 1mg q30min IV prn mod pain and dyspnea Dilaudid 1.5mg q1h IV severe pain, air hunger/terminal dyspnea * Ativan increased to 1mg q4h IV prn * Robinul increased to 0.4mg IV q4h prn * PO meds stopped, she is no longer able to take PO * May need to convert to TDF if SNF dc is feasible but for now I do not feel she will survive this admission Thank you for allowing us to participate in the ongoing care of this patient. Please don't hesitate to call or page with any additional concerns. Dr. Alexa Bourgeois DNP Director, Palliative Care History of Present Illness Reason for Consultation: On 05/18/23 @ 13:12 Alejo Booth Wrote To Alexa Bourgeois Comfort Care Attending Physician: Alejo Booth MD History of Present Illness Meri is a 77yo female admitted from [facility] on 05/14/23 with JANICE s/p a fall at [facility] that reportedly happened a week prior but had not been evaluated. She had clinical deterioration with hypoxia, hypoglycemia Family report pt may have had several falls on the same day, slipping in talc powder. Pt had progressive pain and trouble walking which intensified 2 days prior to admission with signif tenderness to touch, with findings of findings of OM and intramuscular abscess in left hip and +MSSA bacteremia. She was found to have a displaced left hip intertrochanteric femur fracture. ortho consult reviewed, reccs were surgically stabilization after infection is cleared 05/18/23, repeat CT SCAN LEFT HIP: 1. There is again noted an intertrochanteric fracture within the proximal left femur. 2. Soft tissue gas both within and surrounding the left femoral fracture has slightly progressed which is concerning for underlying infection. 3. In addition, there are focal pockets of intramuscular soft tissue gas/fluid within the left proximal to mid anterior thigh with the dominant collection measuring 3.1 x 1.7 cm. These are concerning for intramuscular abscesses. 4. Possible bony erosion involving the fragments of the left femoral fracture which is new from the prior study and concerning for osteomyelitis. Therefore, this may represent a pathologic fracture. 5. Urgent surgical consultation recommended given the possibility of an unde rlying gas-forming organism. There has been some generalized decline for past few months ute her appetite has been low since boyfriend in January. Hydration is challenging. PMH: CKD, hypothyroid, DM, GERD, weakness, parkinsonism, falls, mild dementia, intellectual disability, Carotid stenosis, right (Right ICA 70%, left ICA 50% 03/2022) At baseline, she uses the wheeled walker with a seat Family have elected transition to comfort care as pt would not have QOL with prolonged bedrest and immobility. the infection is signif and would need to be c leared before surgery can happen and surgery may not fix everything, as she may have to have the hip removed altogether if infection does not clear with hopes that she will then scar down the injury and maybe return to some sort of modified ambulation with a limp. These are not acceptable ways to live for pt who enjoys her freedom. Allergies Allergy/AdvReac Type Severity Reaction Status Date / Time No Known Drug Allergies Allergy Unknown Verified 12/18/22 02:05 Home Medications Medication Instructions Recorded Confirmed Type pen needle, diabetic 31 gauge x #30 ea 10/03/18 12/04/22 History 5/16" (BD Ultra-Fine Short Pen Needle) albuterol sulfate 90 mcg/actuation 2 inh inhalation Q4H PRN shortness 12/24/20 05/14/23 Rx aerosol inhaler (ProAir HFA) of breath or wheezing #8.5 grams Wheeled Walker #1 ea 01/10/21 05/14/23 Rx blood sugar diagnostic (Contour #400 ea 03/10/21 12/04/22 Rx Next Test Strips) amlodipine 5 mg tablet 5 mg PO QAM #90 tabs 03/19/21 05/14/23 Rx sitagliptin phosphate 50 mg tablet 50 mg PO DAILY #30 tabs 08/29/21 05/14/23 Rx (Januvia) pen needle,diabetic dual safty 30 #100 ea 11/13/21 12/04/22 Rx gauge x 3/16" (BD AutoShield Duo Pen Needle) lancets 33 gauge (Freeman 1 #100 ea 12/16/21 12/04/22 Rx Lancets) donepezil 10 mg tablet 10 mg PO DAILY #90 tabs 12/18/21 05/14/23 Rx omeprazole 20 mg capsule,delayed 20 mg PO QAM #90 caps 01/14/22 05/14/23 Rx release atorvastatin 40 mg tablet 40 mg PO HS 06/16/22 05/14/23 History acetaminophen 325 mg capsule 650 mg PO Q6H PRN temp>101 12/18/22 05/14/23 History acetaminophen 325 mg tablet 650 mg PO Q12 muscle weakness 12/18/22 05/14/23 History (Tylenol) dextran 70-hypromellose eye drops 1 drp OPB QID 12/18/22 05/14/23 History in a dropperette (Artificial Tears (PF) drops in a dropperette) ezetimibe 10 mg tablet 10 mg PO HS 12/18/22 05/14/23 History levothyroxine 88 mcg tablet 88 mcg PO DAILY 12/18/22 05/14/23 History jirjrsrz-jzzg-rgsd 8 mg-folic 400 1 tab PO DAILY 12/18/22 05/14/23 History mcg-K 50 mcg-lutein 300 mcg tablet (Centrum Silver Women) omega-3s 300 bw-bkh-nnj-other 1 cap PO DAILY 12/18/22 05/14/23 History rqumv3z-neuj oil 1,000 mg capsule ([place]-3 Fish Oil) ondansetron HCl 4 mg tablet 4 mg PO Q6 PRN Nausea And Vomiting 12/18/22 05/14/23 History tramadol 50 mg tablet 50 mg PO Q8 PRN Pain and swelling 12/18/22 05/14/23 History aspirin 81 mg tablet,delayed 81 mg PO QAM #60 tabs 12/26/22 05/14/23 Rx release acetaminophen 325 mg tablet 650 mg PO Q12 PRN Pain 05/14/23 05/14/23 History ammonium lactate 12 % topical cream 1 applic topical BID 05/14/23 05/14/23 History cholecalciferol (vitamin D3) 25 25 mcg PO DAILY 05/14/23 05/14/23 History mcg (1,000 unit) tablet (Vitamin D3) diclofenac sodium 1 % topical gel 1 ea topical TID 05/14/23 05/14/23 History fluticasone 100 mcg-salmeterol 50 1 inh inhalation Q12H 05/14/23 05/14/23 History mcg/dose blistr powdr for inhalation (Advair Diskus) insulin glargine 100 unit/mL 20 unit subcut HS 05/14/23 05/14/23 History subcutaneous solution (Lantus U-100 Insulin) ipratropium 0.5 mg-albuterol 3 mg 3 ml inhalation .EVERY 6 HOURS PRN 05/14/23 05/14/23 History (2.5 mg base)/3 mL nebulization Shortness Of Breath Or Wheezing soln ipratropium 0.5 mg-albuterol 3 mg 3 ml inhalation Q8H PRN Shortness 05/14/23 05/14/23 History (2.5 mg base)/3 mL nebulization Of Breath Or Wheezing soln lisinopril 40 mg tablet 20 mg PO QAM 05/14/23 05/14/23 History mirtazapine 7.5 mg tablet 7.5 mg PO HS 05/14/23 05/14/23 History polyethylene glycol 3350 17 17 g PO DAILY 05/14/23 05/14/23 History gram/dose oral powder (Miralax) primidone 50 mg tablet 50 mg PO DAILY 05/14/23 05/14/23 History sertraline 100 mg tablet 150 mg PO DAILY 05/14/23 05/14/23 History Patient History Medical History (Updated 05/18/23 @ 15:56 by Alexa Bourgeois DNP) Encounter for end of life care Palliative care by specialist Discussion about advance care planning held with family member Dyspnea and respiratory abnormalities Left hip pain Weakness generalized Stage 3b chronic kidney disease Acute hyponatremia Hypertension Anemia Back pain Benign colonic polyp DM type 2 (diabetes mellitus, type 2) GERD without esophagitis History of aspiration pneumonia History of fall Hyperlipidemia Hypothyroidism Muscle weakness Venous insufficiency Mental retardation Bronchitis COPD exacerbation Asthma Surgical History Recent surgical procedure on lower extremity left leg and ankle surgery History of foot surgery History of section History of oral surgery History of cataract surgery Family History Mother Diabetes type 2 Cardiac murmur Hypertension Asthma Father Bone cancer Social History Smoking Status: Never smoker Second Hand Exposure: No; Do You Dip or Chew Tobacco: No; Hx Alcohol Use: No Hx Substance Use: No Preferred Language: Sri Lankan Communication Ability: Impaired Visual Impairment: No Limitations Hearing Ability: Normal College Associate Required: No Beliefs That Will Affect Care: Caodaism marital status: Single Current Living Situation: Longterm Current Living Situation Comment: Mike current occupational status: disabled Feels Safe at Home: Yes Safety Concerns: Feels Safe At This Time Childhood Exposure to Second-Hand Smoke: No Seatbelt Use: always Assistive Devices: Hospital Bed and Wheelchair Review of Systems Review of Systems: Unobtainable due to cognitive status and Unobtainable due to reduced consciousness Physical Exam Physical Exam: frail, chronically ill appearing elderly female in acute distress, moaning and crying out will open eyes to name but does not focus or track, grimacing and furrowed brow, +diaphoretic resp effort is increased with use of accessory muscles noted, bilat scatt rhonchi tachy s1s2, no gross JVD abd distended, BS diminished LLE edematous, red and warm to touch, signif grimacing and crying out when left hip is lightly examined, left thigh quite swollen skin pale, warm, wound on left foot, erythema noted lethargic and unable to follow commands Results & Data Vital Signs (Past 12 Hours) Vital Signs Temp Pulse Resp BP Pulse Ox O2 Del Method O2 Flow Rate 05/18/23 12:45 36.7 C 75 20 92/50 L 100 Nasal Cannula 2.5 05/18/23 12:32 36.4 C L 74 19 89/45 L 99 Room Air 05/18/23 06:48 36.8 C 75 18 105/50 L 98 Nasal Cannula 2 05/18/23 02:39 36.8 C 80 20 101/52 L 96 Nasal Cannula 2 Laboratory Results data reviewed Diagnostic Findings data reviewed PG Care Time/CCT Total # of Minutes Spent Total Time Spent: 100 Total Time Spent with Patient: Total time spent is greater than 50% in coordination of care (as documented) at patient's floor/unit and/or counseling patient: Advanced Care Planning 29971 Advanced Care Planning 30 [place] [address] IN/OBS CONSULT LVL 5,80M Patient Type New Medical Decision Making High Complexity Diagnoses Dyspnea and respiratory abnormalities R06.00; R06.89 Weakness generalized R53.1 Left hip pain M25.552 Discussion about advance care planning held with family member Z71.0 Palliative care by specialist Z51.5 Encounter for end of life care Z51.5 Osteomyelitis of hip M86.9 MSSA bacteremia R78.81; B95.61 Acute kidney injury superimposed on CKD N17.9; N18.9 Metabolic encephalopathy G93.41 Closed displaced intertrochanteric fracture of left femur, initial encounter S72.142A Encounter type: initial encounter Fracture alignment: displaced Additional Codes Advanced Care Planning - 70173 Advanced Care Planning 30 Min: 31343 Advanced Care Planning 30 Min ([id number])
[2023-05-18] MEDS: HYDROmorphone INJ 2 MG/ML SYR/VIAL IV PRN (13:49)
[2023-05-18] MEDS ORDERED: HYDROmorphone INJ 0.5 MG/0.5 ML SYR IV PRN (15:41)
--- NOTE | 2023-05-18 17:08 | Hospitalist Progress Note ---
Date of Service May 18, 2023 Assessment & Plan (1) Palliative care by specialist: Plan: Family now wishes to transition to comfort care, will stop all treatment including antibiotics, with prn hydromorphone and ativan may transition to journalism teacher if symptom control is needed as has hip fracture, with deep tissue infection, pt also not eating or drinking meaningfully, expect in the hospital (2) Bacteremia: Plan: Leukocytosis, febrile on admission, 3 of 3 blood cultures show Gr +, PCR staph, not mrsa gene-> no vegetations seen on transthoracic echo, repeat cx 05/17/23 has significant cellulitis on left foot, concern if source or seeded, Lower extremity with fracture but no overlying warmth/erythema or crepitus persistent pain and leukocytosis, repeat CT hip 05/18/23 Soft tissue gas both within and surrounding the left femoral fracture has slightly progressed which is concerning for underlying infection. focal pockets of intramuscular soft tissue gas/fluid within the left proximal to mid anterior thigh with the dominant collection measuring 3.1 x 1.7 cm. These are concerning for intramuscular abscesses. Possible bony erosion involving the fragments of the left femoral fracture which is new from the prior study and concerning for osteomyelitis. Therefore, this may represent a pathologic fracture with the concern for progression and finding gas progression in the tissue, IR aspiration of hip with Gr + organisms, antibiotics stopped with comfort decision ID consult pending final recommendations on IR aspiration of hip-> now on comfort care Ortho recommends transfer to tertiary care center for drainage and antibiotic spacer, concern for pathological fracture possible from pre existing infection *Sepsis due to Methicillin susceptible Staphylococcus aureus, POA urine also growing E coli, (3) DM type 2 (diabetes mellitus, type 2): Plan: HHS, HAGMA (4) JANICE (acute kidney injury): Plan: JANICE, hyperkalemia, improving, additional patiromer Baseline around 1.5, (5) Dyspnea: Plan: By wells criteria score is 3, PE unlikely will have dvt prophylaxis cautiosly with acute blood loss anemia from femur fracture (6) Closed intertrochanteric fracture of left femur: Plan: unclear exact timeline, did have falls prior to admission,in light of CT of hip from 05/18/23, could be infection pre existing and weakening femur, leading to pathological fracture Surgery recommends transfer to consider wash out and bone debridement. (7) Anemia: Plan: Acute blood loss anemia, secondary to hip fracture CTA/P with no evidence of retroperitoneal hematoma Plan CODE STATUS: DNR/DNI POLST is on file, now on comfort care Admission and Anticipated Discharge Date Admission Date: May 14, 2023 Subjective pt is very ill and in pain with movement family updated at bedside prolonged discussions with OLIVIA Farmer and Cornelia Family moving to full on comfort care, no antibiotics and will progress to journalism teacher if needed Physical Exam Physical Exam: pt is in significant pain has peripheral edema, hand swelling is improved. cellulitis and swelling to left foot with some blistering of skin erythema has receded over the last 24 hours IR has aspirated pus from left hip Results & Data Results & Data Vital Signs (Past 12 Hours) Vital Signs Temp Pulse Pulse Resp BP Pulse Ox O2 Del Method 05/18/23 12:45 98.1 F 75 20 92/50 L 100 Nasal Cannula 05/18/23 12:32 97.5 F L 74 19 89/45 L 99 Room Air 05/18/23 08:30 Nasal Cannula 05/18/23 08:00 76 05/18/23 06:48 98.2 F 75 18 105/50 L 98 Nasal Cannula O2 Flow Rate 05/18/23 12:45 2.5 05/18/23 12:32 05/18/23 08:30 2 05/18/23 08:00 05/18/23 06:48 2 PG Care Time/CCT Total # of Minutes Spent Total Time Spent with Patient: Total time spent is greater than 50% in coordination of care (as documented) at patient's floor/unit and/or counseling patient: Coding Level of Care Code 24633 SUB INP/OBS CARE 3/50MIN Diagnoses Palliative care by specialist Z51.5 Bacteremia R78.81 DM type 2 (diabetes mellitus, type 2) E11.9 JANICE (acute kidney injury) N17.9 Dyspnea R06.00 Closed displaced intertrochanteric fracture of left femur, initial encounter S72.142A Encounter type: initial encounter Fracture alignment: displaced Anemia D64.9 (6) Closed intertrochanteric fracture of left femur Encounter type: initial encounter Fracture alignment: displaced Qualified Code(s): S72.142A - Displaced intertrochanteric fracture of left femur, initial encounter for closed fracture
[2023-05-18] MEDS: HYDROmorphone INJ 0.5 MG/0.5 ML SYR IV SCH (17:32)
[2023-05-18] MEDS ORDERED: FIRST - Mouthwash BLM 119 ML PO PRN (18:24)
[2023-05-18] MEDS ORDERED: LANTUS PER UNIT CHARGE SC SCH (21:00)
[2023-05-19] MEDS: PNEUMOCOCCAL VACCINE (PCV20) 20-VAL CONJ-DIP CRM/PF 0.5 ML SYR IM ONE (04:39)
[2023-05-19] MEDS: HYDROmorphone INJ 2 MG/ML SYR/VIAL IV PRN (08:37)
--- NOTE | 2023-05-19 10:15 | Palliative Care Progress Note ---
Date of Service May 19, 2023 Assessment & Plan (1) Left hip pain: Plan: From severe OM and fx She had Dilaudid 10mg IV in past 24 hr without relief based on MAR review; pain relief is not lasting more than 15-20min per family even when Dilaudid 1.5mg dose is given. Nurse validated the pain relief is suboptimal and patient continues to express discomfort. Will begin Dilaudid infusion for comfort. Begin 0.5mg loading dose, then 0.3mg per hour continuous and 0.3mg bolus q15min prn breakthru pain. Titration in increments of 0.3mg per protocol, max hourly rate 8mg Pt has used Dilaudid 10mg in past 24hr which is approx 0.42mg per hour equivalent. This new infusion will allow for up to 1.5mg per hour with breakthru dosing and I have asked nursing to also given Ativan as ordered to assist with myoclonus/spasms and relieve agitation. Plan of care and rationale reviewed with nursing, pt family and ACP discussion as noted below (2) Dyspnea and respiratory abnormalities: (3) Weakness generalized: (4) Encounter for end of life care: (5) Palliative care by specialist: Plan: Met with pt/family. Provided overview of Palliative Medicine, a subspecialty that provides specialized medical care for people living with a serious illness by offering a focus on quality of life. Palliative Medicine is often conflated with hospice: I advised patient/family that Palliative and hospice can be p artners but we are not the same. It is important to understand the difference so that we may be informed, and not afraid. Palliative Medicine works to improve QOL through reduction of symptom burden/more control over their illness, for both the patient and family. Palliative medicine clinicians are board certified, specially-trained and another member of the patient's medical care team. We often provide an extra layer of support because our care is based on the needs of the patient, not the prognosis; as such, it's appropriate at any age/advancing stage of a serious illness and can be provided along with curative treatment. Palliative Medicine clinicians are also trained in advanced communication methodologies, to facilitate complex discussions about advanced illness planning, which are needed to help assure that the treatment choices match the patient's goals, aka delivering Goal Concordant care. Finally, we discussed that hospice is a visiting nurse service that focuses on care de livered at the very end of life for patients with terminal illness, with life expectancy less than 6 month. (6) Discussion about advance care planning held with family member: Plan: I met face to face with pt sister Marleny/OLIVIA, brother Cale and his daughter/pt niece at bedside for a face to face ACP meeting for 60min at bedside We had a lengthy discussion about the events leading to admission, therapies tried/failed and interventions offered with potential outcomes and how those weighed against what pt wants for herself and would accommodate how she defines QOL for herself. They are grateful pt had completed a POLST and made her adv illness wishes very clearly known. She was also able to engage in discussions with ortho and the options offered and ultimately chose not to pursue those as they would not bring her the outcome she wanted for herself. They expressed many frustrations with perceived inadequacy of care at [facility] and Marleny speaks specifically of the instance in ED when she called [facility] at request of ED team for more HPI related info and the nurse supervisor blood was overheard saying she "did not have time for this nonsense." This has created more emotional burden for Marleny who feels the [facility] team should have been more attentive and caring for her sister and this behavior during the call is the final example of how little compassion she feels they have for her sister. She feels her trust has been violated. Brother had questions about how symptoms would be managed ute pain and we reviewed the Dilaudid infusion i ordered this morning. I reviewed her opioid use since my initial orders yesterday and the basis for today's infusion order. We also discussed changes pt may move through in the dying process including but not limited to sleeping more, disorientation when awake, restlessness, diminished senses/inability to respond to stimulus although ability to be aware of them remains intact longer, changes in body temperatures, skin changes/mottling/cyanosis, respiratory pattern changes, oral secretions. Family verbalized understanding. The goal is to assure a peaceful . Niece had many questions about if we were sure everything that could have been done to make pt better had been done. We reviewed the interventions tried to date and their lack of impact. We spoke about surgery reccs and Marleny reiterated those options were not to pt's preference and she herself declined them. 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 Family all in agreement that was not acceptable QOL for pt who enjoyed being "a social butterfly and walking all around to see people." Extensive support and reassurance provided. (7) Closed intertrochanteric fracture of left femur: (8) Acute kidney injury superimposed on CKD: (9) MSSA bacteremia: (10) Osteomyelitis of hip: Plan * ACP discussion as noted above * Dilaudid infusion ordered to improve pain relief * Extensive counseling and support for family. * Updated nursing and primary team. Family advised I will be in OP Pall med clinic tomorrow and therefore not in the hospital. I can be paged for urgent needs. Thank you for allowing us to participate in the ongoing care of this patient. Please don't hesitate to call or page with any additional concerns. Dr. Alexa Bourgeois DNP Director, Palliative Care Admission and Anticipated Discharge Date Admission Date: May 14, 2023 Subjective Meri remains on comfort care Marleny/sister and POA is at bedside Meri is crying out, grimacing and brow furrowed She is repeatedly saying "Ow Ow Ow" She is not very interactive but can occasionally open eyes when her name is called by a family member She is not taking PO She is immobilized due to OM and hip fx She is in signif pain She is not able to provide HPI Review of Systems Review of Systems: All systems reviewed & are unremarkable except as noted in Subjective, Unobtainable due to cognitive status and Unobtainable due to reduced consciousness Physical Exam Physical Exam: frail, chronically ill appearing elderly female in acute distress, moaning and crying out, brow furrowed, grimacing will open eyes to name but does not focus or track, grimacing and furrowed brow, +diaphoretic resp effort is increased with use of accessory muscles noted, bilat scatt rhonchi tachy s1s2, no gross JVD abd distended, BS diminished LLE edematous, red and warm to touch, signif grimacing and crying out when left hip is lightly examined, left thigh quite swollen skin pale, warm, wound on left foot, erythema noted lethargic and unable to follow commands Results & Data Vital Signs (Past 12 Hours) Vital Signs O2 Del Method O2 Flow Rate 05/19/23 07:28 Nasal Cannula 2 05/19/23 02:00 Nasal Cannula 2 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 PG Care Time/CCT Total # of Minutes Spent Total Time Spent with Patient: Total time spent is greater than 50% in coordination of care (as documented) at patient's floor/unit and/or counseling patient: I spent 105 minutes overall addressing this case: 10 min in medical data review/discussion with referring provider(s) and/or preparation for the visit 15 min in direct interaction with the patient/exam 60 min in Advance Care Planning/Goals of Care discussions as detailed above in note (must be >16min) 10 min in subsequent review and synthesis of assessment and plan 10 min communicating with other providers regarding the patient's case: Advanced Care Planning 64343 Advanced Care Planning 30 Min [id number] Advanced Care Planning Additional 30 Min [place] [address] SUB INP/OBS CARE 3/50MIN Patient Type Established History Comprehensive Exam Comprehensive Medical Decision Making High Complexity Diagnoses Left hip pain M25.552 Dyspnea and respiratory abnormalities R06.00; R06.89 Weakness generalized R53.1 Encounter for end of life care Z51.5 Palliative care by specialist Z51.5 Discussion about advance care planning held with family member Z71.0 Closed displaced intertrochanteric fracture of left femur, initial encounter S72.142A Encounter type: initial encounter Fracture alignment: displaced Acute kidney injury superimposed on CKD N17.9; N18.9 MSSA bacteremia R78.81; B95.61 Osteomyelitis of hip M86.9 Additional Codes Advanced Care Planning - 47224 Advanced Care Planning 30 Min: 04253 Advanced Care Planning 30 Min ([id number]) Advanced Care Planning - 20503 Advanced Care Planning Additional 30 Min: 08682 Advanced Care Planning Additional 30 Min ([id number]) (7) Closed intertrochanteric fracture of left femur Encounter type: initial encounter Fracture alignment: displaced Qualified Code(s): S72.142A - Displaced intertrochanteric fracture of left femur, initial encounter for closed fracture
[2023-05-19] MEDS: LORazepam 1 MG in SYRINGE 0.5 ML IV PRN (10:19)
[2023-05-19] MEDS: HYDROmorphone INJ 1 MG/ML SYRINGE IV PRN (10:20)
[2023-05-19] MEDS: HYDROmorphone/NSS 100 MG/100 ML BAG IV SCH (10:48)
--- NOTE | 2023-05-19 14:49 | Hospitalist Progress Note ---
Date of Service May 19, 2023 Assessment & Plan (1) Dyspnea and respiratory abnormalities: Plan: Comfort measures only (2) Weakness generalized: Plan: Comfort measures only (3) Left hip pain: Plan: Comfort measures only. She is unresponsive on a Dilaudid infusion (4) Discussion about advance care planning held with family member: Plan: Comfort measures only have been established. She is on a continuous Dilaudid infusion (5) Palliative care by specialist: Plan: Comfort measures only (6) Osteomyelitis of hip: Plan: Comfort measures only (7) MSSA bacteremia: Plan: Comfort measures only (8) Acute kidney injury superimposed on CKD: Plan: Comfort measures only. No further lab testing (9) Metabolic encephalopathy: Plan: Currently unresponsive. Comfort measures only (10) Closed intertrochanteric fracture of left femur: Plan: Comfort measures only Plan Comfort measures only. Continuous Dilaudid infusion. She will undoubtedly soon Admission and Anticipated Discharge Date Admission Date: May 14, 2023 Subjective Unresponsive on continuous Dilaudid drip. Family members are present. She is on a continuous hydromorphone infusion Review of Systems Review of Systems: The patient is unresponsive and unable to answer any questions regarding review of systems Physical Exam Physical Exam: General-unresponsive. No fever HEENT-head atraumatic and normocephalic, pupils equal and reactive to light Neck-no lymphadenopathy or thyromegaly, trachea midline Chest-scattered bilateral rhonchi. Shallow inspiratory effort. No wheezing Cardiac-regular rate and rhythm, normal S1 and S2 Abdomen-hypoactive bowel sounds but present. No hepatosplenomegaly Extremities-no cyanosis, clubbing, or edema Neuro-unresponsive. Unable to evaluate Psych-unresponsive. Unable to evaluate Results & Data Results & Data Vital Signs (Past 12 Hours) Vital Signs O2 Del Method O2 Flow Rate 05/19/23 07:28 Nasal Cannula 2 PG Care Time/CCT Total # of Minutes Spent Total Time Spent with Patient: Total time spent is greater than 50% in coordination of care (as documented) at patient's floor/unit and/or counseling patient: Coding Level of Care Code 27035 SUB INP/OBS CARE 3/50MIN Diagnoses Dyspnea and respiratory abnormalities R06.00; R06.89 Weakness generalized R53.1 Left hip pain M25.552 Discussion about advance care planning held with family member Z71.0 Palliative care by specialist Z51.5 Osteomyelitis of hip M86.9 MSSA bacteremia R78.81; B95.61 Acute kidney injury superimposed on CKD N17.9; N18.9 Metabolic encephalopathy G93.41 Closed displaced intertrochanteric fracture of left femur, initial encounter S72.142A Encounter type: initial encounter Fracture alignment: displaced (10) Closed intertrochanteric fracture of left femur Encounter type: initial encounter Fracture alignment: displaced Qualified Code(s): S72.142A - Displaced intertrochanteric fracture of left femur, initial encounter for closed fracture
--- NOTE | 2023-05-19 17:04 | Infectious Disease Progress Nt ---
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 ID will discontinue active follow up at this time. Please do not hesitate to reconsult the Infectious Diseases service as needed. Yuliana Hernandez MD [facility], Division of Infectious Diseases IDConnect: [phone] Admission and Anticipated Discharge Date Admission Date: May 14, 2023 Subjective This patient recommendation is based on a telemedicine consult request which was completed asynchronously through chart review and information provided by the primary physician. The patient was not seen or examined today. The evaluation is consultative in nature and all patient care and treatment decisions can either be accepted or rejected by the patient's primary hospital-based treating physician using their own independent medical judgment for their patient. Time Spent Reviewing Chart: 11 - 20 minutes Results & Data Vital Signs (Past 12 Hours) Vital Signs O2 Del Method O2 Flow Rate 05/19/23 07:28 Nasal Cannula 2 (3) Closed intertrochanteric fracture of left femur Encounter type: initial encounter Fracture alignment: displaced Qualified Code(s): S72.142A - Displaced intertrochanteric fracture of left femur, initial encounter for closed fracture
--- NOTE | 2023-05-20 14:29 | Hospitalist Progress Note ---
Date of Service May 20, 2023 Assessment & Plan (1) Dyspnea and respiratory abnormalities: Plan: Comfort measures only (2) Weakness generalized: Plan: Comfort measures only (3) Left hip pain: Plan: Comfort measures only. She is unresponsive on a Dilaudid infusion (4) Discussion about advance care planning held with family member: Plan: Comfort measures only have been established. She is on a continuous Dilaudid infusion (5) Palliative care by specialist: Plan: Comfort measures only (6) Osteomyelitis of hip: Plan: Comfort measures only (7) MSSA bacteremia: Plan: Comfort measures only (8) Acute kidney injury superimposed on CKD: Plan: Comfort measures only. No further lab testing (9) Metabolic encephalopathy: Plan: Currently unresponsive. Comfort measures only (10) Closed intertrochanteric fracture of left femur: Plan: Comfort measures only Plan Comfort measures only. Continuous Dilaudid infusion. She will undoubtedly soon Admission and Anticipated Discharge Date Admission Date: May 14, 2023 Subjective The patient remains unresponsive. The family is at the bedside. No new findings. Review of Systems Review of Systems: The patient is unresponsive and unable to answer any questions regarding review of systems Physical Exam Physical Exam: General-unresponsive. No fever HEENT-head atraumatic and normocephalic, pupils equal and reactive to light Neck-no lymphadenopathy or thyromegaly, trachea midline Chest-scattered bilateral rhonchi. Shallow inspiratory effort. No wheezing Cardiac-regular rate and rhythm, normal S1 and S2 Abdomen-hypoactive bowel sounds but present. No hepatosplenomegaly Extremities-no cyanosis, clubbing, or edema Neuro-unresponsive. Unable to evaluate Psych-unresponsive. Unable to evaluate Results & Data Results & Data Vital Signs (Past 12 Hours) Vital Signs O2 Del Method O2 Flow Rate 05/20/23 07:39 Nasal Cannula 2 PG Care Time/CCT Total # of Minutes Spent Total Time Spent with Patient: Total time spent is greater than 50% in coordination of care (as documented) at patient's floor/unit and/or counseling patient: Coding Level of Care Code 80249 SUB INP/OBS CARE 2/35MIN Diagnoses Dyspnea and respiratory abnormalities R06.00; R06.89 Weakness generalized R53.1 Left hip pain M25.552 Discussion about advance care planning held with family member Z71.0 Palliative care by specialist Z51.5 Osteomyelitis of hip M86.9 MSSA bacteremia R78.81; B95.61 Acute kidney injury superimposed on CKD N17.9; N18.9 Metabolic encephalopathy G93.41 Closed displaced intertrochanteric fracture of left femur, initial encounter S72.142A Encounter type: initial encounter Fracture alignment: displaced (10) Closed intertrochanteric fracture of left femur Encounter type: initial encounter Fracture alignment: displaced Qualified Code(s): S72.142A - Displaced intertrochanteric fracture of left femur, initial encounter for closed fracture
[2023-05-21] MEDS: GLYCOPYRROLATE 0.2 MG/ML VIAL IV PRN (12:36)
--- NOTE | 2023-05-21 13:55 | Hospitalist Progress Note ---
Date of Service May 21, 2023 Assessment & Plan (1) Dyspnea and respiratory abnormalities: Plan: Comfort measures only (2) Weakness generalized: Plan: Comfort measures only (3) Left hip pain: Plan: Comfort measures only. She is unresponsive on a Dilaudid infusion (4) Discussion about advance care planning held with family member: Plan: Comfort measures only have been established. She is on a continuous Dilaudid infusion (5) Palliative care by specialist: Plan: Comfort measures only (6) Osteomyelitis of hip: Plan: Comfort measures only (7) MSSA bacteremia: Plan: Comfort measures only (8) Acute kidney injury superimposed on CKD: Plan: Comfort measures only. No further lab testing (9) Metabolic encephalopathy: Plan: Currently unresponsive. Comfort measures only (10) Closed intertrochanteric fracture of left femur: Plan: Comfort measures only Plan Comfort measures only. Continuous Dilaudid infusion. She will undoubtedly soon Admission and Anticipated Discharge Date Admission Date: May 14, 2023 Subjective Unresponsive. She does grimace with sternal rub. Review of Systems Review of Systems: The patient is unresponsive and unable to answer any questions regarding review of systems Physical Exam Physical Exam: General-unresponsive. No fever HEENT-head atraumatic and normocephalic, pupils equal and reactive to light Neck-no lymphadenopathy or thyromegaly, trachea midline Chest-scattered bilateral rhonchi. Shallow inspiratory effort. No wheezing Cardiac-regular rate and rhythm, normal S1 and S2 Abdomen-hypoactive bowel sounds but present. No hepatosplenomegaly Extremities-no cyanosis, clubbing, or edema Neuro-unresponsive. Unable to evaluate Psych-unresponsive. Unable to evaluate Results & Data Results & Data Vital Signs (Past 12 Hours) Vital Signs O2 Del Method O2 Flow Rate 05/21/23 07:40 Nasal Cannula 2 PG Care Time/CCT Total # of Minutes Spent Total Time Spent with Patient: Total time spent is greater than 50% in coordination of care (as documented) at patient's floor/unit and/or counseling patient: Coding Level of Care Code 28256 SUB INP/OBS CARE 2/35MIN Diagnoses Dyspnea and respiratory abnormalities R06.00; R06.89 Weakness generalized R53.1 Left hip pain M25.552 Discussion about advance care planning held with family member Z71.0 Palliative care by specialist Z51.5 Osteomyelitis of hip M86.9 MSSA bacteremia R78.81; B95.61 Acute kidney injury superimposed on CKD N17.9; N18.9 Metabolic encephalopathy G93.41 Closed displaced intertrochanteric fracture of left femur, initial encounter S72.142A Encounter type: initial encounter Fracture alignment: displaced (10) Closed intertrochanteric fracture of left femur Encounter type: initial encounter Fracture alignment: displaced Qualified Code(s): S72.142A - Displaced intertrochanteric fracture of left femur, initial encounter for closed fracture
--- NOTE | 2023-05-22 11:25 | Hospitalist Progress Note ---
Date of Service May 22, 2023 Assessment & Plan (1) Dyspnea and respiratory abnormalities: Plan: Comfort measures only (2) Weakness generalized: Plan: Comfort measures only (3) Left hip pain: Plan: Comfort measures only. She is unresponsive on a Dilaudid infusion (4) Discussion about advance care planning held with family member: Plan: Comfort measures only have been established. She is on a continuous Dilaudid infusion (5) Palliative care by specialist: Plan: Comfort measures only (6) Osteomyelitis of hip: Plan: Comfort measures only (7) MSSA bacteremia: Plan: Comfort measures only (8) Acute kidney injury superimposed on CKD: Plan: Comfort measures only. No further lab testing (9) Metabolic encephalopathy: Plan: Currently unresponsive. Comfort measures only (10) Closed intertrochanteric fracture of left femur: Plan: Comfort measures only Plan Comfort measures only. Continuous Dilaudid infusion. She will undoubtedly soon Admission and Anticipated Discharge Date Admission Date: May 14, 2023 Subjective The patient remains unresponsive. Her respiratory rate has slowed. Family is in attendance. She remains on a Dilaudid continuous IV infusion Review of Systems Review of Systems: The patient is unresponsive and unable to answer any questions regarding review of systems Physical Exam Physical Exam: General-unresponsive. No fever HEENT-head atraumatic and normocephalic, pupils equal and reactive to light Neck-no lymphadenopathy or thyromegaly, trachea midline Chest-scattered bilateral rhonchi. Shallow inspiratory effort. No wheezing Cardiac-regular rate and rhythm, normal S1 and S2 Abdomen-hypoactive bowel sounds but present. No hepatosplenomegaly Extremities-no cyanosis, clubbing, or edema Neuro-unresponsive. Unable to evaluate Psych-unresponsive. Unable to evaluate Results & Data Results & Data Vital Signs (Past 12 Hours) Vital Signs O2 Del Method O2 Flow Rate 05/22/23 07:30 Nasal Cannula 2 PG Care Time/CCT Total # of Minutes Spent Total Time Spent with Patient: Total time spent is greater than 50% in coordination of care (as documented) at patient's floor/unit and/or counseling patient: Coding Level of Care Code 00566 SUB INP/OBS CARE 2/35MIN Diagnoses Dyspnea and respiratory abnormalities R06.00; R06.89 Weakness generalized R53.1 Left hip pain M25.552 Discussion about advance care planning held with family member Z71.0 Palliative care by specialist Z51.5 Osteomyelitis of hip M86.9 MSSA bacteremia R78.81; B95.61 Acute kidney injury superimposed on CKD N17.9; N18.9 Metabolic encephalopathy G93.41 Closed displaced intertrochanteric fracture of left femur, initial encounter S72.142A Encounter type: initial encounter Fracture alignment: displaced (10) Closed intertrochanteric fracture of left femur Encounter type: initial encounter Fracture alignment: displaced Qualified Code(s): S72.142A - Displaced intertrochanteric fracture of left femur, initial encounter for closed fracture
[2023-05-22] MEDS: HYDROmorphone BOLUS from BAG IV PRN (18:10)
--- NOTE | 2023-05-23 11:12 | Hospitalist Progress Note ---
Date of Service May 23, 2023 Assessment & Plan (1) Dyspnea and respiratory abnormalities: Plan: Comfort measures only (2) Weakness generalized: Plan: Comfort measures only (3) Left hip pain: Plan: Comfort measures only. She is unresponsive on a Dilaudid infusion (4) Discussion about advance care planning held with family member: Plan: Comfort measures only have been established. She is on a continuous Dilaudid infusion (5) Palliative care by specialist: Plan: Comfort measures only (6) Osteomyelitis of hip: Plan: Comfort measures only (7) MSSA bacteremia: Plan: Comfort measures only (8) Acute kidney injury superimposed on CKD: Plan: Comfort measures only. No further lab testing (9) Metabolic encephalopathy: Plan: Currently unresponsive. Comfort measures only (10) Closed intertrochanteric fracture of left femur: Plan: Comfort measures only Plan Comfort measures only. Continuous Dilaudid infusion. She will undoubtedly soon Admission and Anticipated Discharge Date Admission Date: May 14, 2023 Subjective Unresponsive. The patient grimaces anytime you touch her and the family is concerned she is suffering pain. They were reassured that this is very unlikely. She remains on a Dilaudid infusion continuously. Review of Systems Review of Systems: The patient is unresponsive and unable to answer any questions regarding review of systems Physical Exam Physical Exam: General-unresponsive. No fever HEENT-head atraumatic and normocephalic, pupils equal and reactive to light Neck-no lymphadenopathy or thyromegaly, trachea midline Chest-scattered bilateral rhonchi. Shallow inspiratory effort. No wheezing Cardiac-regular rate and rhythm, normal S1 and S2 Abdomen-hypoactive bowel sounds but present. No hepatosplenomegaly Extremities-no cyanosis, clubbing, or edema Neuro-unresponsive. Unable to evaluate Psych-unresponsive. Unable to evaluate PG Care Time/CCT Total # of Minutes Spent Total Time Spent with Patient: Total time spent is greater than 50% in coordination of care (as documented) at patient's floor/unit and/or counseling patient: Coding Level of Care Code 55381 SUB INP/OBS CARE 2/35MIN Diagnoses Dyspnea and respiratory abnormalities R06.00; R06.89 Weakness generalized R53.1 Left hip pain M25.552 Discussion about advance care planning held with family member Z71.0 Palliative care by specialist Z51.5 Osteomyelitis of hip M86.9 MSSA bacteremia R78.81; B95.61 Acute kidney injury superimposed on CKD N17.9; N18.9 Metabolic encephalopathy G93.41 Closed displaced intertrochanteric fracture of left femur, initial encounter S72.142A Encounter type: initial encounter Fracture alignment: displaced (10) Closed intertrochanteric fracture of left femur Encounter type: initial encounter Fracture alignment: displaced Qualified Code(s): S72.142A - Displaced intertrochanteric fracture of left femur, initial encounter for closed fracture
[2023-05-24 00:02] LABS: Uric Acid, Random Urine 24 mg/dL (see note)
--- NOTE | 2023-05-24 13:17 | Hospitalist Progress Note ---
Date of Service May 24, 2023 Assessment & Plan (1) Left hip pain: Plan: presented from hip pain, thought to be hip fracture from fall 8 days earlier. Also with JANICE, anemic and hyperglycemic which was determined to be HHS. also with positive blood cultures. Patient initially required ICU stay, once downgraded repeat CT was done and per preparation for surgery that showed increase in gas formation around the fracture site, with concerns for osteomyelitis requiring surgery that would require transfer to a tertiary center. at this point 05/17, the patient's family opted to stop aggressive measure and continue with comfort measures only. Palliative care consulted - Dilaudid drip - prn ativan - prn Druinul (2) Osteomyelitis of hip: Plan: Comfort measures only (3) MSSA bacteremia: Plan: *Sepsis due to Methicillin susceptible Staphylococcus aureus, POA (4) Acute kidney injury superimposed on CKD: Plan: Comfort measures only. No further lab testing (5) Metabolic encephalopathy: Plan: Currently unresponsive. Comfort measures only (6) Closed intertrochanteric fracture of left femur: Plan: Comfort measures only Plan Comfort measures only. Continuous Dilaudid infusion. Admission and Anticipated Discharge Date Admission Date: May 14, 2023 Supervising Physician Co-Signing Physician Notes JUVENTINO Supervision Note: I did not personally see or examine the patient today, but I verified all gonzalez points of JUVENTINO Juárez's assessment and plan with the following exceptions/additions: None Subjective opens eyes to some stimuli sister present at bedside Review of Systems Review of Systems: Unobtainable due to cognitive status Physical Exam Physical Exam: Appears comfortable UE edema RR around 10-12 per minute Results & Data Results & Data Vital Signs (Past 12 Hours) Vital Signs O2 Del Method 05/24/23 09:49 Nasal Cannula PG Care Time/CCT Total # of Minutes Spent Total Time Spent with Patient: Total time spent is greater than 50% in coordination of care (as documented) at patient's floor/unit and/or counseling patient: Coding Level of Care Code 14139 SUB INP/OBS CARE 03/25MIN Diagnoses Left hip pain M25.552 Osteomyelitis of hip M86.9 MSSA bacteremia R78.81; B95.61 Acute kidney injury superimposed on CKD N17.9; N18.9 Metabolic encephalopathy G93.41 Closed displaced intertrochanteric fracture of left femur, initial encounter S72.142A Encounter type: initial encounter Fracture alignment: displaced (6) Closed intertrochanteric fracture of left femur Encounter type: initial encounter Fracture alignment: displaced Qualified Code(s): S72.142A - Displaced intertrochanteric fracture of left femur, initial encounter for closed fracture
[2023-05-24] MEDS: SODIUM CHLORIDE 0.9% 1,000 ML IV SCH (16:00)
[2023-05-25] MEDS ORDERED: Nursing to Pharmacy Communication SCH (02:30)
--- NOTE | 2023-05-25 15:04 | Hospitalist Progress Note ---
Date of Service May 25, 2023 Assessment & Plan (1) Left hip pain: Plan: presented from hip pain, thought to be hip fracture from fall 8 days earlier. Also with JANICE, anemic and hyperglycemic which was determined to be HHS. also with positive blood cultures. Patient initially required ICU stay, once downgraded repeat CT was done and per preparation for surgery that showed increase in gas formation around the fracture site, with concerns for osteomyelitis requiring surgery that would require transfer to a tertiary center. at this point 05/17, the patient's family opted to stop aggressive measure and continue with comfort measures only. Palliative care consulted - Dilaudid drip - prn ativan - prn Druinul (2) Osteomyelitis of hip: Plan: Comfort measures only (3) MSSA bacteremia: Plan: *Sepsis due to Methicillin susceptible Staphylococcus aureus, POA (4) Acute kidney injury superimposed on CKD: Plan: Comfort measures only. No further lab testing (5) Metabolic encephalopathy: Plan: Currently unresponsive. Comfort measures only (6) Closed intertrochanteric fracture of left femur: Plan: Comfort measures only Plan Comfort measures only. Continuous Dilaudid infusion. Admission and Anticipated Discharge Date Admission Date: May 14, 2023 Supervising Physician Co-Signing Physician Notes PA Supervision Note: I did not personally see or examine the patient today, but I verified all gonzalez points of JUVENTINO Juárez's assessment and plan with the following exceptions/additions: None Subjective patient unreponsive today visited bedside multiple times to check in with family. all questions answered Review of Systems Review of Systems: Unobtainable due to reduced consciousness Physical Exam Physical Exam: Appears comfortable UE edema RR around 10-12 per minute PG Care Time/CCT Total # of Minutes Spent Total Time Spent with Patient: Total time spent is greater than 50% in coordination of care (as documented) at patient's floor/unit and/or counseling patient: Coding Level of Care Code 31007 SUB INP/OBS CARE 03/25MIN Diagnoses Left hip pain M25.552 Osteomyelitis of hip M86.9 MSSA bacteremia R78.81; B95.61 Acute kidney injury superimposed on CKD N17.9; N18.9 Metabolic encephalopathy G93.41 Closed displaced intertrochanteric fracture of left femur, initial encounter S72.142A Encounter type: initial encounter Fracture alignment: displaced (6) Closed intertrochanteric fracture of left femur Encounter type: initial encounter Fracture alignment: displaced Qualified Co de(s): S72.142A - Displaced intertrochanteric fracture of left femur, initial encounter for closed fracture
--- NOTE | 2023-05-26 13:55 | Hospitalist Progress Note ---
Date of Service May 26, 2023 Assessment & Plan (1) Left hip pain: Plan: presented from hip pain, thought to be hip fracture from fall 8 days earlier. Also with JANICE, anemic and hyperglycemic which was determined to be HHS. also with positive blood cultures. Patient initially required ICU stay, once downgraded repeat CT was done and per preparation for surgery that showed increase in gas formation around the fracture site, with concerns for osteomyelitis requiring surgery that would require transfer to a tertiary center. at this point 05/17, the patient's family opted to stop aggressive measure and continue with comfort measures only. Palliative care consulted - Dilaudid drip - prn ativan - increased to q2H - prn Robinul (2) Osteomyelitis of hip: Plan: Comfort measures only (3) MSSA bacteremia: Plan: *Sepsis due to Methicillin susceptible Staphylococcus aureus, POA (4) Acute kidney injury superimposed on CKD: Plan: Comfort measures only. No further lab testing (5) Metabolic encephalopathy: Plan: Currently unresponsive. Comfort measures only (6) Closed intertrochanteric fracture of left femur: Plan: Comfort measures only Plan Comfort measures only. Continuous Dilaudid infusion. Admission and Anticipated Discharge Date Admission Date: May 14, 2023 Supervising Physician Co-Signing Physician Notes PA Supervision Note: I did not personally see or examine the patient today, but I verified all gonzalez points of JUVENTINO Juárez's assessment and plan with the following exceptions/additions: None Subjective today is patient's birthday many family at bedside pt unresponsive Reassurance provided to family Review of Systems Review of Systems: Unobtainable due to reduced consciousness Physical Exam Physical Exam: Appears comfortable UE edema RR around 10-12 per minute Results & Data Results & Data Vital Signs (Past 12 Hours) Vital Signs O2 Del Method O2 Flow Rate 05/26/23 07:20 Nasal Cannula 2 PG Care Time/CCT Total # of Minutes Spent Total Time Spent with Patient: Total time spent is greater than 50% in coordination of care (as documented) at patient's floor/unit and/or counseling patient: Coding Level of Care Code 55207 SUB INP/OBS CARE 25MIN Diagnoses Left hip pain M25.552 Osteomyelitis of hip M86.9 MSSA bacteremia R78.81; B95.61 Acute kidney injury superimposed on CKD N17.9; N18.9 Metabolic encephalopathy G93.41 Closed displaced intertrochanteric fracture of left femur, initial encounter S72.142A Encounter type: initial encounter Fracture alignment: displaced (6) Closed intertrochanteric fracture of left femur Encounter type: initial encounter Fracture alignment: displaced Qualified Code(s): S72.142A - Displaced intertrochanteric fracture of left femur, initial encounter for closed fracture
[2023-05-26] MEDS: LORazepam 1 MG in SYRINGE 0.5 ML IV PRN (14:04)
--- NOTE | 2023-05-26 17:04 | Death Pronouncement Note ---
Date of Service May 26, 2023 Pronouncement Note Admission Date May 14, 2023 Date and Time of Date of : 05/26/23 Time of : 16:45 Preliminary Cause of (1) MSSA bacteremia: (2) Osteomyelitis of hip: (3) Closed intertrochanteric fracture of left femur: Encounter type: initial encounter Fracture alignment: displaced Qualified Code(s): S72.142A - Displaced intertrochanteric fracture of left femur, initial encounter for closed fracture Summary Upon entering the room, patient was found to be in a terminal state. They were unresponsive to, and did not withdrawal from, verbal or tactile stimuli. They were unresponsive to corneal, and pupillary reflexes. On cardiopulmonary exam, they were found to be without detectable carotid pulses, and without spontaneous heart tones or respirations. Time of : 1644 See discharge summary for further information. Additional Data Attending physician: Debbie Maldonado MD Supervising Physician Co-Signing Physician Notes PA Supervision Note: I did not personally see or examine the patient today, but I verified all gonzalez points of JUVENTINO Juárez's assessment and plan with the following exceptions/additions: None Coding Level of Care Code None Diagnoses MSSA bacteremia R78.81; B95.61 Osteomyelitis of hip M86.9 Closed displaced intertrochanteric fracture of left femur, initial encounter S72.142A Encounter type: initial encounter Fracture alignment: displaced
--- NOTE | 2023-05-26 17:08 | Discharge Summary ---
Discharge Summary Date of Service May 26, 2023 Notes For Next Care Provider Patient at 1645 on 05/26/2023 after being on comfort measures only status. Admission HPI Per Admitting Provider Meri is a 77-year-old female with a past medical history of CKD, weakness, parkinsonism, falls, mild dementia who is a [facility] resident who presents with hip pain, JANICE, and ill clinical appearance. On EMS arrival to facility patient was borderline hypoxic and hyperglycemic. Patient is seen with her family at bedside to give collateral, Meri is tearful and a somewhat limited historian but is able to answer most questions appropriately despite not being oriented to year. Meri and family report that she had a fall 8 days ago, and actually had 3 falls in the same day. Family notes that they think this may have been because she slipped on talcum powder. She had a left ankle x-ray as outpatient which was reportedly normal, we do not have a copy of this at time of admission, but which was going to be repeated this week. She had not had imaging of her hip to their knowledge. She reports she had some pain but was able to be ambulated to a wheelchair until Wednesday, 2 days ago when she had se irasema progressive worsening pain in her left hip and entire left leg which now hurts to the touch all over. SHe is very tearful. She reports since Wednesday she has also had shortness of breath and feels like she has a hard time catching her breath regardless of position or activity. She is not sure if her leg is more swollen or not. Denies numbness/tingling in the legs, endorses constant aching pain through her hips bilaterally and L leg. NO saddle anesthesia. She has had no history of blood clots or bleeding problems in the past. She notes that she has not been eating or drinking very much at all in the last few months since her boyfriend in January and hydration has been a challenge at baseline, this has also been much worse in the last week where she has been eating and drinking almost nothing. Subcutaneous fluids were attempted as outpatient to supplement. She denies any history of heart disease or strokes, denies history of stents. Reports she is on aspirin preventatively. Denies history of tobacco abuse or COPD. Denies history of alcohol use. Endorses history of asthma on inhalers with no recent wheezing, but does endorse shortness of breath. She is not sure if she took medicines or not this morning. She has not been out of bed in the last 2 days. NO history of heart failure no history of heart problems per family Medical History: Reviewed Medications: Reviewed Surgical History: Reviewed Family history: Reviewed Allergies: Reviewed Social History: Denies tobacco etoh Code Status: DNR/DNI, advanced directive on file. Principal Dx & Hospital Course #1 = Principal Diagnosis (1) MSSA bacteremia: *Sepsis due to Methicillin susceptible Staphylococcus aureus, POA presented with hip pain, thought to be hip fracture from fall 8 days earlier. Also with JANICE, anemic and hyperglycemic which was determined to be HHS. also with positive blood cultures. Patient initially required ICU stay, once downgraded repeat CT was done and per preparation for surgery that showed increase in gas formation around the fracture site, with concerns for osteomyelitis requiring surgery that would require transfer to a tertiary center. at this point 05/17, the patient's family opted to stop aggressive measure and continue with comfort measures only. Time of 1644 (2) Osteomyelitis of hip: (3) Closed intertrochanteric fracture of left femur: Plan patient Discharge Exam terminal state without cardiac or respiratory activity. Updated Medication List Medication Instructions Recorded Confirmed Type pen needle, diabetic 31 gauge x #30 ea 10/03/18 12/04/22 History 5/16" (BD Ultra-Fine Short Pen Needle) albuterol sulfate 90 mcg/actuation 2 inh inhalation Q4H PRN shortness 12/24/20 05/14/23 Rx aerosol inhaler (ProAir HFA) of breath or wheezing #8.5 grams Wheeled Walker #1 ea 01/10/21 05/14/23 Rx blood sugar diagnostic (Contour #400 ea 03/10/21 12/04/22 Rx Next Test Strips) amlodipine 5 mg tablet 5 mg PO QAM #90 tabs 03/19/21 05/14/23 Rx sitagliptin phosphate 50 mg tablet 50 mg PO DAILY #30 tabs 08/29/21 05/14/23 Rx (Januvia) pen needle,diabetic dual safty 30 #100 ea 11/13/21 12/04/22 Rx gauge x 3/16" (BD AutoShield Duo Pen Needle) lancets 33 gauge ([place] 1 #100 ea 10/18/22 10/06/23 Rx Lancets) donepezil 10 mg tablet 10 mg PO DAILY #90 tabs 12/18/21 05/14/23 Rx omeprazole 20 mg capsule,delayed 20 mg PO QAM #90 caps 01/14/22 05/14/23 Rx release atorvastatin 40 mg tablet 40 mg PO HS 06/16/22 05/14/23 History acetaminophen 325 mg capsule 650 mg PO Q6H PRN temp>101 12/18/22 05/14/23 History acetaminophen 325 mg tablet 650 mg PO Q12 muscle weakness 12/18/22 05/14/23 History (Tylenol) dextran 70-hypromellose eye drops 1 drp OPB QID 12/18/22 05/14/23 History in a dropperette (Artificial Tears (PF) drops in a dropperette) ezetimibe 10 mg tablet 10 mg PO HS 12/18/22 05/14/23 History levothyroxine 88 mcg tablet 88 mcg PO DAILY 12/18/22 05/14/23 History znsepovz-dxut-njcy 8 mg-folic 400 1 tab PO DAILY 12/18/22 05/14/23 History mcg-K 50 mcg-lutein 300 mcg tablet (Centrum Silver Women) omega-3s 300 lw-knl-mhd-other 1 cap PO DAILY 12/18/22 05/14/23 History byzpw8o-uoag oil 1,000 mg capsule (Tracy-3 Fish Oil) ondansetron HCl 4 mg tablet 4 mg PO Q6 PRN Nausea And Vomiting 12/18/22 05/14/23 History tramadol 50 mg tablet 50 mg PO Q8 PRN Pain and swelling 12/18/22 05/14/23 History aspirin 81 mg tablet,delayed 81 mg PO QAM #60 tabs 12/26/22 05/14/23 Rx release acetaminophen 325 mg tablet 650 mg PO Q12 PRN Pain 05/14/23 05/14/23 History ammonium lactate 12 % topical cream 1 applic topical BID 05/14/23 05/14/23 History cholecalciferol (vitamin D3) 25 25 mcg PO DAILY 05/14/23 05/14/23 History mcg (1,000 unit) tablet (Vitamin D3) diclofenac sodium 1 % topical gel 1 ea topical TID 05/14/23 05/14/23 History fluticasone 100 mcg-salmeterol 50 1 inh inhalation Q12H 05/14/23 05/14/23 History mcg/dose blistr powdr for inhalation (Advair Diskus) insulin glargine 100 unit/mL 20 unit subcut HS 05/14/23 05/14/23 History subcutaneous solution (Lantus U-100 Insulin) ipratropium 0.5 mg-albuterol 3 mg 3 ml inhalation .EVERY 6 HOURS PRN 05/14/23 05/14/23 History (2.5 mg base)/3 mL nebulization Shortness Of Breath Or Wheezing soln ipratropium 0.5 mg-albuterol 3 mg 3 ml inhalation Q8H PRN Shortness 05/14/23 05/14/23 History (2.5 mg base)/3 mL nebulization Of Breath Or Wheezing soln lisinopril 40 mg tablet 20 mg PO QAM 05/14/23 05/14/23 History mirtazapine 7.5 mg tablet 7.5 mg PO HS 05/14/23 05/14/23 History polyethylene glycol 3350 17 17 g PO DAILY 05/14/23 05/14/23 History gram/dose oral powder (Miralax) primidone 50 mg tablet 50 mg PO DAILY 05/14/23 05/14/23 History sertraline 100 mg tablet 150 mg PO DAILY 05/14/23 05/14/23 History Hospital Stay Data Consultations 05/14/23 12:01 ED Decision to Admit Stat 05/14/23 16:59 Consult Leg Assembler Routine 05/14/23 19:32 Consult Orthopedic Surgery Routine 05/17/23 12:58 Consult Infectious Diseases Routine 05/18/23 13:10 Consult Palliative Care Routine Diagnostic Imagining Performed 05/14/23 10:02 US venous doppler LE LT Stat 05/14/23 15:42 CT Abd and Pelvis [CT abd pelvis wo con] Urgent 05/14/23 15:57 CT leg [CT femur LT wo con] Urgent 05/14/23 16:02 CT leg [CT tib/fib LT wo con] Urgent 05/16/23 10:18 CT foot LT wo con Urgent 05/17/23 08:08 CT hip LT wo con Routine 05/18/23 08:00 IR aspinj mjr jnt sh,hip,kn LT Routine Total Time Total Time Spent Total Time Spent (In Minutes): 20 Supervising Physician Co-Signing Physician Notes JUVENTINO Supervision Note: I did not personally see or examine the patient today, but I verified all gonzalez points of JUVENTINO Juárez's assessment and plan with the following exceptions/additions: None Coding Level of Care Code 78418 IN/OBS DISCH 30 MIN/LESS Diagnoses MSSA bacteremia R78.81; B95.61 Osteomyelitis of hip M86.9 Closed displaced intertrochanteric fracture of left femur, initial encounter S72.142A Encounter type: initial encounter Fracture alignment: displaced
== END 2023-05-26 20:49 | disposition expired | DRG 871 ==
LOC: ED 09:48 → SUATTDRO 15:37 → 1E 15:37 → 4W 05-16 05:23 → 3N 05-19 02:08